=== PATIENT | female | born 1955 | race Two or more races ===

== ENCOUNTER 2020-01-29 11:10 | Inpatient (IN) | payer MEDICAID ==
[~2020-01-29] VITALS: Ht 162.6 cm; Wt 52.2 kg
[2020-01-29 11:10] VITALS: BP 119/62
--- NOTE | 2020-01-29 11:10 | NUR ---
ED Nurse Note: [facility]o AMS and fever 101F. Per EMS, pt is more altered than usual. Pt is alert and orientedx1, non verbal but is responsive to tactile stimuli. No acute distress. Pt placed on manager monitoring. ERMD at bedside.
[2020-01-29] MEDS ORDERED: Acetaminophen 650 MG SUPP RECTAL ONE ×2 (11:15→11:22)
[2020-01-29] MEDS ORDERED: Piperacillin/Tazobactam 3.375 GM in NS 110 ML IVPB ONE (11:15)
[2020-01-29] MEDS ORDERED: Vancomycin 1 GM in NS 275 ML IV ONE (11:15)
[2020-01-29] MEDS ORDERED: Sodium Chloride 2,200 ML IVLG ONE (11:15)
[2020-01-29] MEDS ORDERED: MEGESTROL ACETA40 MG PO (11:16)
[2020-01-29] MEDS ORDERED: AMLODIPINE BESYL5 MG ORAL (11:18)
[2020-01-29] MEDS ORDERED: ACETAMINOPHEN325 M1 ORAL (11:18)
[2020-01-29] MEDS ORDERED: LOVENOX10 M4 SUBQ (11:18)
--- NOTE | 2020-01-29 11:22 | Emergency Room Report ---
History of Present Illness General Chief Complaint: Altered Mental Status Source: Medical Record, EMS Present Illness HPI Patient brought by EMS. They were called for altered mentation. Patient was admitted to the long term facility on January 17. She has a history of UTI urinary tract infections in the past. Usually she is responsive and verbal [place]-speaking. Today she was less responsive and had a fever. No alleged cough. According to the long term facility there are several COVID-19 positive patients there. Paramedics were able to establish an IV but no fluids were administered. Oxygen saturation 96% in the field. The patient has history of encephalopathy and prior urinary tract infections. Allergies: Coded Allergies: No Known Allergies (Unverified , 01/29/20) COVID-19 Screening Contact w/high risk pt: Yes Recent Travel to affected area: No Experienced COVID-19 symptoms?: Yes COVID-19 symptoms experienced: Fever (T>100.4F or >38C) Patient History Limited by: medical condition Past Medical History: see triage record Social History Narrative Bethany Rubin Reviewed Nursing Documentation: PMH: Agreed; PSxH: Agreed Review of Systems All Other Systems: limited Physical Exam Vital Signs Date Time Temp Pulse Resp B/P (MAP) Pulse Ox O2 Delivery O2 Flow Rate FiO2 01/29/20 11:07 100.9 120 24 104/55 (71) 97 Room Air Sp02 EP Interpretation: reviewed, normal General Appearance: alert - Eyes are open and tries to follow but not answering , thin, Chronically Ill Head: normocephalic, atraumatic Eyes: bilateral eye normal inspection, bilateral eye PERRL, bilateral eye EOMI ENT: moist mucus membranes Neck: supple Respiratory: other - No respiratory distress Cardiovascular #1: no edema, tachycardia Cardiovascular #2: 2+ radial (R) Gastrointestinal: non tender, soft, non-distended, decreased bowel sounds Genitourinary: no CVA tenderness Musculoskeletal: other - Bunion deformity Neurologic: motor weakness - Generalized, Babinski - Bilateral Psychiatric: depressed affect Skin: no rash, other - Skin hot Medical Decision Making Diagnostic Impression: Primary Impression: Sepsis Qualified Codes: A41.9 - Sepsis, unspecified organism; R65.20 - Severe sepsis without septic shock; G93.40 - Encephalopathy, unspecified Additional Impressions: UTI (urinary tract infection) Qualified Codes: N39.0 - Urinary tract infection, site not specified Hypernatremia Dehydration ER Course Patient presents with altered mental status, fever, tachycardia with history of prior urinary tract infections from a long term facility where his COVID- 19 patients. Differential includes sepsis, UTI, pneumonia, COVID-19, acute myocardial infarction electrolyte imbalance amongst others. Patient evaluated with EKG, chest x-ray and labs. Patient treated with 30 mils per kilogram bolus and then aggressively hydrated. Antibiotics ordered to cover possible UTI with resistant organisms. Tylenol ordered. Patient placed on a manager cardiac cath. Also COVID-19 and influenza ordered. EKG sinus tachycardia rate [address]-T wave changes no acute injury. Chest x-ray clear. Sepsis reevaluation. Initial lactic acid normal. 30 mill per kilogram and aggressive hydration was already ordered along with triple antibiotics. Clinically patient is improved with improved mentation. No episodes of hypotension. No longer tachycardic. Sat at 100% and blood pressure 128/53. 1245 Labs remarkable for elevated sodium, elevated BUN. White count upper limit of normal without left shift. Urinalysis with nitrite positive and white blood cells. Patient evaluated by admitting physician. Dr. Kelly requested [facility]. Has patient from a facility where COVID-19 is endemic, COVID-19 tested in this patient. Patient with previous COVID-19contact. Laboratory Tests Test 01/29/20 11:19 01/29/20 11:43 White Blood Count 10.6 K/UL (4.8-10.8) Red Blood Count 5.35 M/UL (4.20-5.40) Hemoglobin 16.3 G/DL (12.0-16.0) H Hematocrit 48.9 % (37.0-47.0) H Mean Corpuscular Volume 91 FL (80-99) Mean Corpuscular Hemoglobin 30.5 PG (27.0-31.0) Mean Corpuscular Hemoglobin Concent 33.4 G/DL (32.0-36.0) Red Cell Distribution Width 12.1 % (11.6-14.8) Platelet Count 304 K/UL (150-450) Mean Platelet Volume 5.6 FL (6.5-10.1) L Neutrophils (%) (Auto) 69.5 % (45.0-75.0) Lymphocytes (%) (Auto) 20.6 % (20.0-45.0) Monocytes (%) (Auto) 8.5 % (1.0-10.0) Eosinophils (%) (Auto) 0.1 % (0.0-3.0) Basophils (%) (Auto) 1.2 % (0.0-2.0) Prothrombin Time 10.3 SEC (9.30-11.50) Prothrombin Time INR 1.0 (0.9-1.1) Activated Partial Thromboplast Time 25 SEC (23-33) Sodium Level 159 MMOL/L (136-145) H Potassium Level 4.0 MMOL/L (3.5-5.1) Chloride Level 120 MMOL/L (98-107) H Carbon Dioxide Level 30 MMOL/L (21-32) Anion Gap 9 mmol/L (5-15) Blood Urea Nitrogen 46 mg/dL (7-18) H Creatinine 0.8 MG/DL (0.55-1.30) Estimated Glomerular Filtration Rate > 60 mL/min (>60) Glucose Level 150 MG/DL (74-106) H Lactic Acid Level 1.50 mmol/L (0.4-2.0) Calcium Level 9.6 MG/DL (8.5-10.1) Phosphorus Level 4.5 MG/DL (2.5-4.9) Magnesium Level 2.9 MG/DL (1.8-2.4) H Total Bilirubin 0.5 MG/DL (0.2-1.0) Aspartate Amino Transferase (AST) 39 U/L (15-37) H Alanine Aminotransferase (ALT) 137 U/L (12-78) H Alkaline Phosphatase 86 U/L (46-116) Total Creatine Kinase 205 U/L (26-308) Troponin I 0.011 ng/mL (0.000-0.056) Pro-B-Type Natriuretic Peptide 288 pg/mL (0-125) H Total Protein 8.1 G/DL (6.4-8.2) Albumin 3.7 G/DL (3.4-5.0) Globulin 4.4 g/dL Albumin/Globulin Ratio 0.8 (1.0-2.7) L Lipase 223 U/L (73-393) Urine Color Yellow Urine Appearance Slightly cloudy Urine pH 5 (4.5-8.0) Urine Specific [place] 1.020 (1.005-1.035) Urine Protein 2+ (NEGATIVE) H Urine Glucose (UA) Negative (NEGATIVE) Urine Ketones Negative (NEGATIVE) Urine Blood 3+ (NEGATIVE) H Urine Nitrite Positive (NEGATIVE) H Urine Bilirubin 1+ (NEGATIVE) H Urine Ictotest Negative (NEGATIVE) Urine Urobilinogen 4 MG/DL (0.0-1.0) H Urine Leukocyte Esterase 3+ (NEGATIVE) H Urine RBC 2-4 /HPF (0 - 2) H Urine WBC 15-20 /HPF (0 - 2) H Urine Squamous Epithelial Cells Few /LPF (NONE/OCC) Urine Bacteria Moderate /HPF (NONE) H Microbiology Date/Time Source Procedure Growth Status 01/29/20 11:19 Nasal Nares - Final Complete 01/29/20 11:19 Nasal Nares - Final Complete EKG Diagnostic Results Rate: tachycardiac Rhythm: NSR ST Segments: no acute changes - Nonspecific ST-T wave changes Rhythm Strip Diag. Results EP Interpretation: yes Rhythm: NSR, no PVC's, no ectopy Chest X-Ray Diagnostic Results Chest X-Ray Diagnostic Results : Chest X-Ray Ordered: Yes # of Views/Limited/Complete: 1 View Indication: Other EP Interpretation: Yes Interpretation: no consolidation, no effusion, no pneumothorax Impression: No acute disease Electronically Signed by: Electronically signed by Howard Ham MD Last Vital Signs Date Time Temp Pulse Resp B/P (MAP) Pulse Ox O2 Delivery O2 Flow Rate FiO2 01/29/20 16:30 98.1 72 20 117/60 99 Room Air Status: improved Disposition: ADMITTED INPATIENT Condition: Serious Howard Ham MD Jan 29, 2020 11:22
[2020-01-29] MEDS ORDERED: Zosyn 3.375gm inj ONE (11:23)
[2020-01-29] MEDS ORDERED: Vancomycin 1gm vial IVPB ONE (11:23)
--- NOTE | 2020-01-29 11:30 | NUR ---
ED Nurse Note: IV line established. Blood and urine specimen collected and sent to lab.
--- NOTE | 2020-01-29 11:35 | NUR ---
ED Nurse Note: FC 16fr inserted per ERMD. Patent and draining well.
[2020-01-29 11:45] LABS: BASOPHILS % (AUTO) 1.2 % (0.0-2.0); EOSINOPHILS % (AUTO) 0.1 % (0.0-3.0); HEMATOCRIT 48.9 % (37.0-47.0); HEMOGLOBIN 16.3 G/DL (12.0-16.0); LYMPHOCYTES % (AUTO) 20.6 % (20.0-45.0); MEAN CORPUSCULAR VOLUME 91 FL (80-99); MONOCYTES % (AUTO) 8.5 % (1.0-10.0); NEUTROPHILS % (AUTO) 69.5 % (45.0-75.0); PLATELET COUNT 304 K/UL (150-450); RED BLOOD COUNT 5.35 M/UL (4.20-5.40); RED CELL DISTRIBUTION WIDTH 12.1 % (11.6-14.8); WHITE BLOOD COUNT 10.6 K/UL (4.8-10.8)
[2020-01-29 11:50] LABS: APPEARANCE,URINE SLIGHTLY CLOUDY; BILIRUBIN, URINE 1+ (NEGATIVE); GLUCOSE, URINE (UA) NEGATIVE (NEGATIVE); KETONES,URINE NEGATIVE (NEGATIVE); LEUKOCYTE ESTERASE ,URINE 3+ (NEGATIVE); NITRITE,URINE POSITIVE (NEGATIVE); PH,URINE 5 (4.5-8.0); PROTEIN,URINE 2+ (NEGATIVE); UROBILINOGEN,URINE 4 MG/DL (0.0-1.0)
--- NOTE | 2020-01-29 11:55 | NUR ---
ED Nurse Note: Xray done at bedside.
[2020-01-29 11:57] LABS: COLOR,URINE YELLOW
[2020-01-29 11:59] LABS: ANION GAP 9 mmol/L (5-15); BLOOD UREA NITROGEN 46 mg/dL (7-18); CALCIUM 9.6 MG/DL (8.5-10.1); CARBON DIOXIDE 30 MMOL/L (21-32); CHLORIDE 120 MMOL/L (98-107); CREATININE 0.8 MG/DL (0.55-1.30); SODIUM 159 MMOL/L (136-145)
[2020-01-29 12:08] LABS: ALANINE AMINOTRANSFERASE 137 U/L (12-78); ALBUMIN 3.7 G/DL (3.4-5.0); ALBUMIN/GLOBULIN RATIO 0.8 (1.0-2.7); ALKALINE PHOSPHATASE 86 U/L (46-116); ASPARTATE AMINO TRANSFERASE 39 U/L (15-37); BILIRUBIN,TOTAL 0.5 MG/DL (0.2-1.0); CREATINE KINASE 205 U/L (26-308); PHOSPHORUS 4.5 MG/DL (2.5-4.9)
--- NOTE | 2020-01-29 12:32 | NUR ---
ED Nurse Note: Pt is noted with pressure sore and redness on sacral area.
--- NOTE | 2020-01-29 12:34 | Diagnostic Imaging Report ---
EXAM: XR Chest, 1 View CLINICAL HISTORY: ALOC TECHNIQUE: Frontal view of the chest. COMPARISON: No relevant prior studies available. FINDINGS: Lungs: Unremarkable. The lungs appear clear. No focal consolidation. Pleural space: Unremarkable. The costophrenic angles are sharp. No visible pneumothorax. Heart: Unremarkable. No cardiomegaly. Mediastinum: Unremarkable. Bones/joints: Degenerative changes throughout the visualized spine and shoulder joints. Vasculature: Atherosclerotic calcifications within the aortic arch. Tubes, lines and devices: Telemetry leads overlie the thorax. IMPRESSION: No acute findings.
[2020-01-29 13:19] VITALS: BP 128/53
--- NOTE | 2020-01-29 13:43 | NUR ---
ED Nurse Note: Dr. Ramirez at bedside.
--- NOTE | 2020-01-29 14:43 | History and Physical ---
History of Present Illness General Reason for Hospitalization: Altered Mental Status Present Illness HPI 64-year-old female from [facility] w/PMH encephalopathy, UTI, anemia, atherosclerosis of aorta who presents with acute altered mentation, fevers and failure to thrive. Patient is poor historian, history obtained via chart review and nurse from nursing facility. Per nurse, patient at baseline is AAO x1, will usually respond to her name however today upon administering medications patient was not responding to name and was refusing food/ medications. No cough, SOB, CP, abdominal pain, dysuria was noted, but upon taking VS pt noted to have HR 144, temp 100.6. Facility has multiple residents who are positive for COVID which concerned the nurse, Pt sent patient to the ED for further treatment and evaluation. On route, patient was found to be septic, temperature 100.9, HR 120, RR 24, sepsis bolus was given in the ED, Vanc, Zosyn , gentamicin were given. PMH: Atherosclerosis of aorta, UTI, anemia, severe protein calorie malnutrition , unspecified altered mentation FHx: Reviewed and not pertinent SH: Patient resides at [facility], no tobacco/EtOH on record Sx: No surgical history allergies: NKDA Allergies: Coded Allergies: No Known Allergies (Unverified , 01/29/20) COVID-19 Screening Contact w/high risk pt: Yes Recent Travel to affected area: No Experienced COVID-19 symptoms?: Yes COVID-19 symptoms experienced: Fever (T>100.4F or >38C) Medication History Scheduled Amlodipine Besylate* (Amlodipine Besylate*), 5 MG ORAL DAILY, (Reported) Enoxaparin* (Lovenox*), 40 MG SUBQ DAILY, (Reported) Scheduled PRN Acetaminophen* (Acetaminophen 325MG Tablet*), 650 MG ORAL Q4H PRN for For Pain, (Reported) Miscellaneous Medications Megestrol Acetate (Megestrol Acetate), 40 MG PO, (Reported) Patient History Healthcare decision maker Resuscitation status Advanced Directive on File Review of Systems ROS Narrative Unable to obtain ROS due to clinical picture, patient noncommunicative at this time. Physical Exam Physical Exam Narrative General: NAD, sitting up in bed, awake, alert, noncommunicative at this time HEENT: NCAT, EOMi, dry MM CV: RRR, no murmurs, rubs, or gallops Pulm: CTAB, No wheezes, rhonchi, or rales, no accessory muscle usage GI: Soft, nontender, nondistended, bowel sounds present Neuro: Limited exam due to patient participation otherwise CN 2-12 grossly intact bilaterally, no focal signs. Ext: No lower extremity edema bilaterally Skin: no rashes lesions or ulcers Msk: Joints symmetrical in upper extremity and lower extremity bilaterally, no joint swelling. Last 24 Hour Vital Signs Date Time Temp Pulse Resp B/P (MAP) Pulse Ox O2 Delivery O2 Flow Rate FiO2 01/29/20 13:19 77 16 128/53 100 Room Air 01/29/20 11:56 101.0 01/29/20 11:10 101.5 118 20 119/62 98 Room Air 01/29/20 11:10 120 24 Room Air 01/29/20 11:07 100.9 120 24 104/55 (71) 97 Room Air Laboratory Tests Test 01/29/20 11:19 01/29/20 11:43 White Blood Count 10.6 K/UL (4.8-10.8) Red Blood Count 5.35 M/UL (4.20-5.40) Hemoglobin 16.3 G/DL (12.0-16.0) H Hematocrit 48.9 % (37.0-47.0) H Mean Corpuscular Volume 91 FL (80-99) Mean Corpuscular Hemoglobin 30.5 PG (27.0-31.0) Mean Corpuscular Hemoglobin Concent 33.4 G/DL (32.0-36.0) Red Cell Distribution Width 12.1 % (11.6-14.8) Platelet Count 304 K/UL (150-450) Mean Platelet Volume 5.6 FL (6.5-10.1) L Neutrophils (%) (Auto) 69.5 % (45.0-75.0) Lymphocytes (%) (Auto) 20.6 % (20.0-45.0) Monocytes (%) (Auto) 8.5 % (1.0-10.0) Eosinophils (%) (Auto) 0.1 % (0.0-3.0) Basophils (%) (Auto) 1.2 % (0.0-2.0) Prothrombin Time 10.3 SEC (9.30-11.50) Prothromb Time International Ratio 1.0 (0.9-1.1) Activated Partial Thromboplast Time 25 SEC (23-33) Sodium Level 159 MMOL/L (136-145) H Potassium Level 4.0 MMOL/L (3.5-5.1) Chloride Level 120 MMOL/L (98-107) H Carbon Dioxide Level 30 MMOL/L (21-32) Anion Gap 9 mmol/L (5-15) Blood Urea Nitrogen 46 mg/dL (7-18) H Creatinine 0.8 MG/DL (0.55-1.30) Estimat Glomerular Filtration Rate > 60 mL/min (>60) Glucose Level 150 MG/DL (74-106) H Lactic Acid Level 1.50 mmol/L (0.4-2.0) Calcium Level 9.6 MG/DL (8.5-10.1) Phosphorus Level 4.5 MG/DL (2.5-4.9) Magnesium Level 2.9 MG/DL (1.8-2.4) H Total Bilirubin 0.5 MG/DL (0.2-1.0) Aspartate Amino Transf (AST/SGOT) 39 U/L (15-37) H Alanine Aminotransferase (ALT/SGPT) 137 U/L (12-78) H Alkaline Phosphatase 86 U/L (46-116) Total Creatine Kinase 205 U/L (26-308) Troponin I 0.011 ng/mL (0.000-0.056) Pro-B-Type Natriuretic Peptide 288 pg/mL (0-125) H Total Protein 8.1 G/DL (6.4-8.2) Albumin 3.7 G/DL (3.4-5.0) Globulin 4.4 g/dL Albumin/Globulin Ratio 0.8 (1.0-2.7) L Lipase 223 U/L (73-393) Urine Color Yellow Urine Appearance Slightly cloudy Urine pH 5 (4.5-8.0) Urine Specific [place] 1.020 (1.005-1.035) Urine Protein 2+ (NEGATIVE) H Urine Glucose (UA) Negative (NEGATIVE) Urine Ketones Negative (NEGATIVE) Urine Blood 3+ (NEGATIVE) H Urine Nitrite Positive (NEGATIVE) H Urine Bilirubin 1+ (NEGATIVE) H Urine Ictotest Negative (NEGATIVE) Urine Urobilinogen 4 MG/DL (0.0-1.0) H Urine Leukocyte Esterase 3+ (NEGATIVE) H Urine RBC 2-4 /HPF (0 - 2) H Urine WBC 15-20 /HPF (0 - 2) H Urine Squamous Epithelial Cells Few /LPF (NONE/OCC) Urine Bacteria Moderate /HPF (NONE) H Microbiology Date/Time Source Procedure Growth Status 01/29/20 11:19 Nasal Nares - Final Complete 01/29/20 11:19 Nasal Nares - Final Complete Height (Feet): 5 Height (Inches): 5.00 Weight (Pounds): 170 Medications Current Medications Medications (Trade) Dose Ordered Sig/Tory Route PRN Reason Start Time Stop Time Status Last Admin Dose Admin Dextrose (Dextrose 50%) 25 ml Q30M PRN IV Hypoglycemia 01/29/20 14:00 04/28/20 13:59 Dextrose (Dextrose 50%) 50 ml Q30M PRN IV Hypoglycemia 01/29/20 14:00 04/28/20 13:59 Enoxaparin Sodium (Lovenox) 40 mg Q24H SUBQ 01/29/20 21:00 04/28/20 20:59 Hydralazine HCl (Apresoline) 10 mg Q4H PRN IV For High Blood Pressure 01/29/20 14:30 04/28/20 14:29 UNV Ondansetron HCl (Zofran) 4 mg Q6H PRN IVP Nausea & Vomiting 01/29/20 14:00 02/28/20 13:59 Piperacillin Sod/ Tazobactam Sod 3.375 gm/Sodium Chloride 110 ml @ 220 mls/hr DAILY IVPB 01/30/20 09:00 02/06/20 08:59 UNV Sodium Chloride 1,000 ml @ 300 mls/hr Q3H20M IV 01/29/20 11:15 02/28/20 11:14 01/29/20 11:48 Vancomycin HCl 1 gm/Sodium Chloride 275 ml @ 183.708 mls/hr DAILY IVPB 01/30/20 09:00 02/06/20 08:59 UNV Assessment/Plan Assessment/Plan: 64-year-old female from [facility] w/[facility] encephalopathy, UTI, anemia, atherosclerosis of aorta who presents with acute altered mentation, fevers and failure to thrive. Pt found to be septic, temperature 100.9, HR 120, RR 24, sepsis bolus was given in the ED, Vanc, Zosyn, gentamicin were given. Pt w/ COVID exposure, pt admitted for sepsis and COVID r/o. #Acute Toxic Metabolic Encephalopathy 2/2 #Sepsis #UTI #COVID exposure, pending r/o -admit to SDU, cardiac monitoring -droplet precautions -s/p sepsis bolus given in ER, cont. IVF -COVID pending -Flu A/B negative -UA positive for UTI -BCx, UCx pending -s/p vanc/zosyn/gentamicin in ED -d/w ID, Dr. Sotomayor, cont. Vanc/Zosyn. Reccs appreciated -Pulm Consulted for COVID r/o, reccs appreciated #Hypernatremia #Dehydration #elevated Hgb/Hct -likely 2/2 dehydration -Hgb/HCT ratio consistent w/dehydration, ctm -s/p sepsis bolus given in ED -cont. IVF -monitor BMP -Nephro, Dr. Ferguson, consulted, recs appreciated #Sinus Tachycardia -Likely multifactorial, 2/2 sepsis/dehydration -seen on EKG sinus tachycardia, HR 137, non-specific ST abnormalities -trop 0.011, cont. to trend -CXR negative for acute process -BNP 288 -improved w/NS bolus -cont. to monitor #Transaminitis -likely 2/2 sepsis -Abd US pending -Hepatitis panel ordered -cont. to monitor LFTs #Severe protein calorie malnutrition #Physical Deconditioning -Dietitian consulted -PT/OT once stable and COVID ruled out DVT PPx: lovenox Time spent on encounter: 70 mins, >50% on counseling, coordination of care. Additional 35 minutes was spent with chart review Time of note doesn't reflect time of encounter. Linsey Ramirez M.D. Jan 29, 2020 14:43
[2020-01-29 15:07] VITALS: BP 113/61
--- NOTE | 2020-01-29 15:24 | NUR ---
HAND-OFF: Report given to Imelda MCKEON. Endorsed plan of care.
--- NOTE | 2020-01-29 15:24 | NUR ---
ED Nurse Note: Report given to Anna Marie MCKEON.
--- NOTE | 2020-01-29 15:25 | NUR ---
ED Nurse Note: Report received from MIKE Lopez. Pt is in no acute distress at this time, safety measures in place. No new orders noted. Will transfer pt to unit.
[2020-01-29 16:15] VITALS: BP 125/64
--- NOTE | 2020-01-29 16:30 | NUR ---
ED Nurse Note: Pt stable for transport to tele unit at this time. Pt is awake, no acute distress noted and vital signs are stable. Pt transported to unit via tech and RN, connected to monitor car operator. IV lines patent and intact. Pt has face mask on and blanket placed over pt during transport for ISO precuations. All ISO precuations in place. Pt has no belongings. No complications noted.
--- NOTE | 2020-01-29 16:30 | NUR ---
NURSE NOTES: Received pt a new admission from ED,awake,alert non verbal on RA noted no resp distress no signs of pain or discomfort,,with Hogan cath draining [place] colored urine,IV sites heplock x2 RH 20 G,LH 22 G both intact,skin warm and dry,with sacral DTI,photos taken,SR up x2 HOB elevated bed lock in lowest position,will continue with plans of care.
--- NOTE | 2020-01-29 17:44 | Infectious Diseases Prog Note ---
Assessment/Plan Assessment/Plan Full consult dictated: A) 1) sepsis, fevers, rule out covid-19 virus infection 2) pmh noted 3) allergies - nkda 4) pmh noted P) 1) vancomycin and zosyn 2) f/u on cultures, labs and chest x-ray 3) will f/u 4) thank you Subjective Allergies: Coded Allergies: No Known Allergies (Unverified , 01/29/20) Objective Vital Signs Last 24 Hour Vital Signs Date Time Temp Pulse Resp B/P (MAP) Pulse Ox O2 Delivery O2 Flow Rate FiO2 01/29/20 16:30 98.1 72 20 117/60 99 Room Air 01/29/20 16:15 97.9 76 20 125/64 (84) 99 01/29/20 15:07 98.1 75 23 113/61 100 Room Air 01/29/20 13:19 77 16 128/53 100 Room Air 01/29/20 11:56 101.0 01/29/20 11:10 101.5 118 20 119/62 98 Room Air 01/29/20 11:10 120 24 Room Air 01/29/20 11:07 100.9 120 24 104/55 (71) 97 Room Air Height (Feet): 5 Height (Inches): 4.00 Weight (Pounds): 170 Microbiology Date/Time Source Procedure Growth Status 01/29/20 11:19 Nasal Nares - Final Complete 01/29/20 11:19 Nasal Nares - Final Complete 01/29/20 12:10 Rectum Received Laboratory Tests Test 01/29/20 11:19 01/29/20 11:43 01/29/20 15:15 White Blood Count 10.6 K/UL (4.8-10.8) Red Blood Count 5.35 M/UL (4.20-5.40) Hemoglobin 16.3 G/DL (12.0-16.0) H Hematocrit 48.9 % (37.0-47.0) H Mean Corpuscular Volume 91 FL (80-99) Mean Corpuscular Hemoglobin 30.5 PG (27.0-31.0) Mean Corpuscular Hemoglobin Concent 33.4 G/DL (32.0-36.0) Red Cell Distribution Width 12.1 % (11.6-14.8) Platelet Count 304 K/UL (150-450) Mean Platelet Volume 5.6 FL (6.5-10.1) L Neutrophils (%) (Auto) 69.5 % (45.0-75.0) Lymphocytes (%) (Auto) 20.6 % (20.0-45.0) Monocytes (%) (Auto) 8.5 % (1.0-10.0) Eosinophils (%) (Auto) 0.1 % (0.0-3.0) Basophils (%) (Auto) 1.2 % (0.0-2.0) Prothrombin Time 10.3 SEC (9.30-11.50) Prothromb Time International Ratio 1.0 (0.9-1.1) Activated Partial Thromboplast Time 25 SEC (23-33) Sodium Level 159 MMOL/L (136-145) H Potassium Level 4.0 MMOL/L (3.5-5.1) Chloride Level 120 MMOL/L (98-107) H Carbon Dioxide Level 30 MMOL/L (21-32) Anion Gap 9 mmol/L (5-15) Blood Urea Nitrogen 46 mg/dL (7-18) H Creatinine 0.8 MG/DL (0.55-1.30) Estimat Glomerular Filtration Rate > 60 mL/min (>60) Glucose Level 150 MG/DL (74-106) H Lactic Acid Level 1.50 mmol/L (0.4-2.0) Calcium Level 9.6 MG/DL (8.5-10.1) Phosphorus Level 4.5 MG/DL (2.5-4.9) Magnesium Level 2.9 MG/DL (1.8-2.4) H Total Bilirubin 0.5 MG/DL (0.2-1.0) Aspartate Amino Transf (AST/SGOT) 39 U/L (15-37) H Alanine Aminotransferase (ALT/SGPT) 137 U/L (12-78) H Alkaline Phosphatase 86 U/L (46-116) Total Creatine Kinase 205 U/L (26-308) Troponin I 0.011 ng/mL (0.000-0.056) 0.028 ng/mL (0.000-0.056) Pro-B-Type Natriuretic Peptide 288 pg/mL (0-125) H Total Protein 8.1 G/DL (6.4-8.2) Albumin 3.7 G/DL (3.4-5.0) Globulin 4.4 g/dL Albumin/Globulin Ratio 0.8 (1.0-2.7) L Lipase 223 U/L (73-393) Urine Color Yellow Urine Appearance Slightly cloudy Urine pH 5 (4.5-8.0) Urine Specific [place] 1.020 (1.005-1.035) Urine Protein 2+ (NEGATIVE) H Urine Glucose (UA) Negative (NEGATIVE) Urine Ketones Negative (NEGATIVE) Urine Blood 3+ (NEGATIVE) H Urine Nitrite Positive (NEGATIVE) H Urine Bilirubin 1+ (NEGATIVE) H Urine Ictotest Negative (NEGATIVE) Urine Urobilinogen 4 MG/DL (0.0-1.0) H Urine Leukocyte Esterase 3+ (NEGATIVE) H Urine RBC 2-4 /HPF (0 - 2) H Urine WBC 15-20 /HPF (0 - 2) H Urine Squamous Epithelial Cells Few /LPF (NONE/OCC) Urine Bacteria Moderate /HPF (NONE) H Hepatitis A IgM Antibody Pending Hepatitis B Surface Antigen Pending Hepatitis B Core IgM Antibody Pending Hepatitis C Antibody Pending Current Medications Medications (Trade) Dose Ordered Sig/Tory Route PRN Reason Start Time Stop Time Status Last Admin Dose Admin Acetaminophen (Tylenol) 650 mg Q4H PRN ORAL For Pain 01/29/20 15:15 02/28/20 15:14 Amlodipine Besylate (Norvasc) 5 mg DAILY ORAL 01/30/20 09:00 02/29/20 08:59 Dextrose (Dextrose 50%) 25 ml Q30M PRN IV Hypoglycemia 01/29/20 14:00 04/28/20 13:59 Dextrose (Dextrose 50%) 50 ml Q30M PRN IV Hypoglycemia 01/29/20 14:00 04/28/20 13:59 Enoxaparin Sodium (Lovenox) 40 mg Q24H SUBQ 01/29/20 21:00 04/28/20 20:59 Hydralazine HCl (Apresoline) 10 mg Q4H PRN IV For High Blood Pressure 01/29/20 14:30 04/28/20 14:29 Ondansetron HCl (Zofran) 4 mg Q6H PRN IVP Nausea & Vomiting 01/29/20 14:00 02/28/20 13:59 Piperacillin Sod/ Tazobactam Sod 3.375 gm/Sodium Chloride 110 ml @ 27.5 mls/hr Q8HR IVPB 01/29/20 22:00 02/05/20 21:59 Sodium Chloride 1,000 ml @ 75 mls/hr [id number] IV 01/30/20 11:15 02/28/20 11:14 Vancomycin HCl (Vanco rx to dose) 1 ea DAILY PRN MISC . 01/29/20 15:30 02/28/20 15:29 Vancomycin HCl 500 mg/Sodium Chloride 110 ml @ 110 mls/hr Q12HR@1100,2300 IVPB 01/29/20 23:00 02/03/20 22:59 Alfonso Sotomayor MD Jan 29, 2020 17:44
--- NOTE | 2020-01-29 19:10 | NUR ---
NURSE NOTES: Pt report received from CEDRICK COLLINS RN. pt is alert and oriented times 1, no acute neuro distress noted. pt is on room air, able to sat at 98%, no acute resp distress. pt is on compliance monitor showing NSR, no acute cardiac distress noted. pt bed is low, locked, armed, bed rails up times 3, call light within reach. will follow plan of care.
--- NOTE | 2020-01-29 19:30 | NUR ---
HAND-OFF: Report given to Galo Burns RN.Pt asleep in bed refused to eat dinner.. Pt asl
[2020-01-29 20:00] VITALS: BP 130/62
[2020-01-29] MEDS: Enoxaparin 40mg Inj SUBQ SCH (20:45)
[2020-01-29] MEDS: Piperacillin/Tazobactam 3.375 GM in NS 110 ML IVPB SCH (22:38)
[2020-01-29] MEDS: Vancomycin 500 MG in NS 110 ML IVPB SCH (22:38)
[2020-01-30] VITALS: BP 138/66
--- NOTE | 2020-01-30 00:45 | Consultation ---
DATE OF CONSULTATION: 01/29/2020 INFECTIOUS DISEASE CONSULT CONSULTING PHYSICIAN: Alfonso Sotomayor MD ATTENDING PHYSICIAN: Orlin Menendez MD REFERRING PHYSICIAN: Dr. Eunice Ramirez. REASON FOR CONSULTATION: UTI with pyelonephritis and sepsis, rule out COVID-19 virus infection, fevers. CHIEF COMPLAINT: The patient's chief complaint coming to the hospital sepsis. HISTORY OF PRESENT ILLNESS: This is a 64-year-old female who is currently at [facility] with fevers and sepsis. She has UTI, pyelonephritis with sepsis. She is also being ruled out COVID-19 virus infection. Infectious Disease consultation is requested. The patient is currently on vancomycin and Zosyn for UTI, pyelonephritis, and sepsis. She is currently in COVID-19 virus isolation. REVIEW OF SYSTEMS: CONSTITUTIONAL: The patient is mostly nonverbal. She has a Hogan. No central line. She came in with fevers of up to 101. She has no rash. No seizures. CARDIAC: No pressors. GASTROINTESTINAL: No nausea or diarrhea. GENITOURINARY: She has a Hogan. PULMONARY: No shortness of breath. PAST MEDICAL HISTORY: The patient has a past medical history of arthrosclerosis of the aorta, UTI, anemia, severe protein malnutrition, altered mental status. ALLERGIES: She has no known drug allergies. SOCIAL HISTORY: Negative for smoking, alcohol, or drug abuse. FAMILY HISTORY: Noncontributory. MEDICATIONS: Reviewed. According to the MAR, she is on following medications. She is on amlodipine, vancomycin, Zosyn, enoxaparin, acetaminophen, hydralazine, Zofran. Outside medications noted and reconciliated. PHYSICAL EXAMINATION: VITAL SIGNS: Temperature 98.1, pulse rate 72, respiratory 20, blood pressure 117/60, and saturation 99% on room air. T-max 101. GENERAL: Alert, responsive, nonverbal. HEAD AND NECK: Oral exam, no thrush. Eye exam, no icterus. Normocephalic. Neck is supple. HEART: Regular. No obvious gallop or murmur. ABDOMEN: Soft. Positive bowel sounds. Nontender. LUNGS: Clear bilaterally. No rhonchi or rales. SKIN: No rash. MUSCULOSKELETAL: No effusions. Legs are without cellulitis. PERIPHERAL VASCULAR: No cyanosis or gangrene. GENITOURINARY: She has a Hogan. LINE SITES: Without phlebitis. NEUROLOGIC: Generalized weakness. Nonverbal. LABORATORY AND DIAGNOSTIC DATA: UA had positive nitrite, 3+ leukocyte esterase, moderate bacteria, 15 to 20 white blood cells. Creatinine 0.8. LFTs noted. White count 10.6, hemoglobin 16.3. Creatinine 0.8. LFTs noted. UA; positive nitrite, 3+ leukocyte esterase, 15 to 20 white blood cells, moderate bacteria. Cultures are pending. Influenza screen was negative. COVID-19 virus testing pending. Chest x-ray showed no acute disease noted and reviewed. ASSESSMENT AND PLAN: 1. The patient has urinary tract infection/pyelonephritis with sepsis and fevers. Rule out COVID-19 virus infection which I have low suspicion for since the fever certainly could be secondary to UTI, pyelonephritis. Continue vancomycin and Zosyn empirically for MRSA gram-negative coverage. Continue vancomycin and Zosyn for UTI/pyelonephritis with sepsis and fevers. Check cultures, laboratories. Chest x-ray negative. Continue COVID-19 virus isolation and await testing with PCR. I would not start hydroxychloroquine at this time in this patient. There is no respiratory distress. No hypoxia. 2. The patient has a history of arthrosclerosis of aorta. 3. History of urinary tract infection. 4. Anemia. 5. Malnutrition. 6. Hogan. 7. Altered mental status. 8. The patient comes from [facility] that has COVID-19 positive patients. 9. No allergies. 10. Social history is negative. 11. Family history is noncontributory. 12. MAR is noted. 13. Case discussed with RN. 14. Case discussed with Dr. Ramirez. 15. Continue treatment per primary consultants. Alfonso Sotomayor M.D. DR: GORGE JOB#: [id number] CC:
[2020-01-30 04:00] VITALS: BP 132/61
[2020-01-30] MEDS: Piperacillin/Tazobactam 3.375 GM in NS 110 ML IVPB SCH ×3 (05:11→21:19)
--- NOTE | 2020-01-30 05:30 | NUR ---
NURSE NOTES: Labs/ blood drawn. sent to lab.
--- NOTE | 2020-01-30 07:09 | NUR ---
HAND-OFF: Report given to ADI MCKEON. Pt remains stable.
--- NOTE | 2020-01-30 07:15 | NUR ---
NURSE NOTES: Received report from Malick Burns RN. Patient asleep in bed, visible chest rise and fall with no respiratory distress. with Right wrist 22 IV line and Left hand 22 IV line intact and infusing well, asymptomatic for infection. Hogan catheter with urine bag in place draining well. Bed rails are up and stabilize.
[2020-01-30 08:34] LABS: ALANINE AMINOTRANSFERASE 108 U/L (12-78); ALBUMIN/GLOBULIN RATIO 0.8 (1.0-2.7); ALKALINE PHOSPHATASE 74 U/L (46-116); ANION GAP 13 mmol/L (5-15); ASPARTATE AMINO TRANSFERASE 32 U/L (15-37); BILIRUBIN,TOTAL 0.4 MG/DL (0.2-1.0); BLOOD UREA NITROGEN 34 mg/dL (7-18); CALCIUM 9.1 MG/DL (8.5-10.1); CARBON DIOXIDE 24 MMOL/L (21-32); CHLORIDE 126 MMOL/L (98-107); CREATININE 0.5 MG/DL (0.55-1.30); POTASSIUM 3.5 MMOL/L (3.5-5.1)
[2020-01-30 08:40] LABS: SODIUM 162 MMOL/L (136-145)
[2020-01-30] MEDS ORDERED: Vancomycin 1 GM in NS 275 ML IVPB SCH (09:00)
--- NOTE | 2020-01-30 09:04 | NUR ---
NURSE NOTES: Patient has critical sodium level of 162, Dr. Ferguson aware. Patient's fluids changed to D5W @ 75 cc/hr.
[2020-01-30 09:39] LABS: PHOSPHORUS 3.5 MG/DL (2.5-4.9)
--- NOTE | 2020-01-30 10:04 | General Progress Note ---
Assessment/Plan Assessment/Plan: 64-year-old female from [facility] w/PMH encephalopathy, UTI, anemia, atherosclerosis of aorta who presents with acute altered mentation, fevers and failure to thrive. Pt found to be septic, temperature 100.9, HR 120, RR 24, sepsis bolus was given in the ED, Vanc, Zosyn, gentamicin were given. Pt w/ COVID exposure, pt admitted for sepsis and COVID r/o. #Acute Toxic Metabolic Encephalopathy 2/2 #Sepsis #UTI #COVID exposure, pending r/o -Cont. inpatient medical care, cardiac monitoring -cont. droplet precautions -s/p sepsis bolus given in ER, cont. IVF -s/p vanc/zosyn/gentamicin in ED -COVID pending -Flu A/B negative -UA positive for UTI -BCx pending -UCx prelim w/GN baccili -d/w ID, Dr. Sotomayor, cont. Zosyn, d/c vanc -Pulm Consulted for COVID r/o, reccs appreciated #Hypernatremia #Dehydration #elevated Hgb/Hct -likely 2/2 dehydration -Hgb/HCT ratio consistent w/dehydration, ctm -s/p sepsis bolus given in ED -monitor BMP -d/w Nephro, Dr. Ferguson, changed NS to D5 #Sinus Tachycardia - resolved -Likely multifactorial, 2/2 sepsis/dehydration -seen on EKG sinus tachycardia, HR 137, non-specific ST abnormalities -trop 0.011, 0.028 -CXR negative for acute process -BNP 288 -improved w/NS bolus -cont. to monitor #Transaminitis -likely 2/2 sepsis -Abd US pending -Hepatitis panel negative -cont. to monitor LFTs #Severe protein calorie malnutrition #Physical Deconditioning -Dietitian consulted -PT/OT once stable and COVID ruled out DVT PPx: lovenox Time spent on encounter: 35 mins, >50% on coordination of care. D/w Nephro, ID and RN. Time of note doesn't reflect time of encounter. Subjective ROS Limited/Unobtainable: Yes - pt minimally verbal at this time Allergies: Coded Allergies: No Known Allergies (Unverified , 01/29/20) Subjective f/u for sepsis/acute metabolic encephalopathy, UTI. No acute events overnight. Patient noncommunicative at this time, unable to obtain ROS, pt appears comfortable, no issues per nurse. Objective Last 24 Hour Vital Signs Date Time Temp Pulse Resp B/P (MAP) Pulse Ox O2 Delivery O2 Flow Rate FiO2 01/30/20 08:43 83 136/72 01/30/20 08:32 67 01/30/20 04:00 65 01/30/20 04:00 98.3 65 20 132/61 (84) 98 01/30/20 04:00 Room Air 01/30/20 00:00 70 01/30/20 00:00 Room Air 01/30/20 00:00 97.8 77 20 138/66 (90) 99 01/29/20 20:00 Room Air 01/29/20 20:00 97.7 80 20 130/62 (84) 98 01/29/20 20:00 103 01/29/20 16:45 Room Air 01/29/20 16:30 98.1 72 20 117/60 99 Room Air 01/29/20 16:30 78 01/29/20 16:15 97.9 76 20 125/64 (84) 99 01/29/20 15:07 98.1 75 23 113/61 100 Room Air 01/29/20 13:19 77 16 128/53 100 Room Air 01/29/20 11:56 101.0 01/29/20 11:10 101.5 118 20 119/62 98 Room Air 01/29/20 11:10 120 24 Room Air 01/29/20 11:07 100.9 120 24 104/55 (71) 97 Room Air Intake and Output 01/29/20 01/30/20 19:00 07:00 Intake Total 3785 ml 247.5 ml Output Total 400 ml 500 ml Balance 3385 ml -252.5 ml Intake IV Total 3785 ml 247.5 ml Output Urine Total 400 ml 500 ml Laboratory Tests 01/29/20 11:19: White Blood Count 10.6, Red Blood Count 5.35, Hemoglobin 16.3H, Hematocrit 48.9H , Mean Corpuscular Volume 91, Mean Corpuscular Hemoglobin 30.5, Mean Corpuscular Hemoglobin Concent 33.4, Red Cell Distribution Width 12.1, Platelet Count 304, Mean Platelet Volume 5.6L, Neutrophils (%) (Auto) 69.5, Lymphocytes ( %) (Auto) 20.6, Monocytes (%) (Auto) 8.5, Eosinophils (%) (Auto) 0.1, Basophils (%) (Auto) 1.2, Prothrombin Time 10.3, Prothromb Time International Ratio 1.0, Activated Partial Thromboplast Time 25, Sodium Level 159H, Potassium Level 4.0, Chloride Level 120H, Carbon Dioxide Level 30, Anion Gap 9, Blood Urea Nitrogen 46H, Creatinine 0.8, Estimat Glomerular Filtration Rate > 60, Glucose Level 150H , Lactic Acid Level 1.50, Calcium Level 9.6, Phosphorus Level 4.5, Magnesium Level 2.9H, Total Bilirubin 0.5, Aspartate Amino Transf (AST/SGOT) 39H, Alanine Aminotransferase (ALT/SGPT) 137H, Alkaline Phosphatase 86, Total Creatine Kinase 205, Troponin I 0.011, Pro-B-Type Natriuretic Peptide 288H, Total Protein 8.1, Albumin 3.7, Globulin 4.4, Albumin/Globulin Ratio 0.8L, Lipase 223 01/29/20 11:43: Urine Color Yellow, Urine Appearance Slightly cloudy, Urine pH 5, Urine Specific [place] 1.020, Urine Protein 2+H, Urine Glucose (UA) Negative, Urine Ketones Negative, Urine Blood 3+H, Urine Nitrite PositiveH, Urine Bilirubin 1+H , Urine Ictotest Negative, Urine Urobilinogen 4H, Urine Leukocyte Esterase 3+H, Urine RBC 2-4H, Urine WBC 15-20H, Urine Squamous Epithelial Cells Few, Urine Bacteria ModerateH 01/29/20 15:15: Troponin I 0.028, Hepatitis A IgM Antibody Negative, Hepatitis B Surface Antigen Negative, Hepatitis B Core IgM Antibody Negative, Hepatitis C Antibody 0.1 01/30/20 05:00: Sodium Level 162*H, Potassium Level 3.5, Chloride Level 126H, Carbon Dioxide Level 24, Anion Gap 13, Blood Urea Nitrogen 34H, Creatinine 0.5L, Estimat Glomerular Filtration Rate > 60, Glucose Level 115H, Calcium Level 9.1, Phosphorus Level 3.5, Magnesium Level 2.5H, Total Bilirubin 0.4, Aspartate Amino Transf (AST/SGOT) 32, Alanine Aminotransferase (ALT/SGPT) 108H, Alkaline Phosphatase 74, Total Protein 6.6, Albumin 3.0L, Globulin 3.6, Albumin/Globulin Ratio 0.8L, Uric Acid 2.4L Height (Feet): 5 Height (Inches): 4.00 Weight (Pounds): 170 Objective General: NAD, awake, alert, sitting up in bed, A&O x 1, nonverbal at this time HEENT: NCAT, EOMi CV: RRR, no murmurs, rubs, or gallops Pulm: CTAB, No wheezes, rhonchi, or rales, no accessory muscle usage GI: Soft, nontender, nondistended, bowel sounds present Ext: No lower extremity edema bilaterally Linsey Ramirez M.D. Jan 30, 2020 10:04
--- NOTE | 2020-01-30 10:31 | NUR ---
RD ASSESSMENT & RECOMMENDATIONS SEE CARE ACTIVITY FOR COMPLETE ASSESSMENT DAILY ESTIMATED NEEDS: Needs based on Wound 60kg abw 25-30 kcals/kg 1223-6547 total kcals 1.25-1.5 g protein/kg 75-90 g total protein 25-30 mL/kg 8704-9022 total fluid mLs NUTRITION DIAGNOSIS: Increased pro needs r/t wound healing as evidenced by sacral unstageable wound. CURRENT DIET:Regular puree PO DIET RECOMMENDATIONS: Maintain Regular liberalized diet w/ poor intake ADDITIONAL RECOMMENDATIONS: 1) Rec T[employer]END [employer]ELOPER eval for appropriate texture for improved acceptance 2) Add Ensure 1 bottle w/ meals 3) Wound care: Add BEATRIZ BID + Vit C 250mg BID F/up w/ WC eval 4) Maintain calibrated bed scale wts 5) Monitor BG, need for hypoglycemics
[2020-01-30 10:56] LABS: BASOPHILS % (AUTO) 0.8 % (0.0-2.0); HEMATOCRIT 40.9 % (37.0-47.0); HEMOGLOBIN 13.6 G/DL (12.0-16.0); LYMPHOCYTES % (AUTO) 23.8 % (20.0-45.0); MEAN CORPUSCULAR VOLUME 93 FL (80-99); MONOCYTES % (AUTO) 6.8 % (1.0-10.0); NEUTROPHILS % (AUTO) 67.6 % (45.0-75.0); PLATELET COUNT 247 K/UL (150-450); RED BLOOD COUNT 4.42 M/UL (4.20-5.40); RED CELL DISTRIBUTION WIDTH 12.1 % (11.6-14.8); WHITE BLOOD COUNT 8.7 K/UL (4.8-10.8)
[2020-01-30] MEDS: Vancomycin 500 MG in NS 110 ML IVPB SCH ×2 (11:35→22:20)
[2020-01-30] MEDS ORDERED: Vancomycin 1 GM in D5W 275 ML IVPB SCH (13:15)
--- NOTE | 2020-01-30 15:15 | Consultation ---
DATE OF CONSULTATION: 01/30/2020 PULMONARY CONSULTATION CONSULTING PHYSICIAN: Tip Moreno M.D. HISTORY OF PRESENT ILLNESS: This is a 64-year-old female, who is a [facility]. She was brought to the hospital with fever and altered mental status. The patient is unable to provide a clear history. The patient denied any shortness of breath, although she is a very poor historian. The patient was noted to be febrile and tachycardic on arrival. There was concern about COVID-19 and she was admitted to an isolation room in our hospital. PAST MEDICAL HISTORY: Notable for hypertension, history of anemia, atherosclerosis, chronic encephalopathy, protein-calorie malnutrition. SOCIAL HISTORY: retirement resident. PAST SURGICAL HISTORY: None. ALLERGIES: None. HOME MEDICATIONS: Reviewed and reconciled in the chart, include amlodipine and Lovenox as well Tylenol. PHYSICAL EXAMINATION: VITAL SIGNS: Blood pressure is 130/60, heart rate 64, respirations 18, O2 saturation 98% on room air. GENERAL: Reveals elderly female. HEENT: Unremarkable. CHEST: Diminished breath sounds bilaterally with normal heart sounds. ABDOMEN: Soft. EXTREMITIES: There is no edema. LABORATORY DATA: Lab testing shows normal CBC and BMP except for sodium 162 and creatinine 0.5. Urine culture shows gram-negative bacilli. IMPRESSION: 1. UTI. 2. Severe hypernatremia. 3. Rule out COVID-19. 4. retirement resident. 5. Hypertension. DISCUSSION: Admit to the hospital. We will order oxygen p.r.n. and the patient needs broad-spectrum antibiotics and I note that she has been started on gentamicin and Zosyn as well as vancomycin. We will follow carefully. Tip Moreno M.D. DR: STEPHANY JOB#: [id number] CC:
[2020-01-30 16:00] VITALS: BP 132/57
--- NOTE | 2020-01-30 16:31 | Consultation ---
Consult Note Consult Note I am asked to evaluate the patient at the request of [employer] [facility] for management of the hypernatremia 64-year-old female from [facility] w/PMH encephalopathy, UTI, anemia, atherosclerosis of aorta who presents with acute altered mentation, fevers and failure to thrive. Pt found to be septic, temperature 100.9, HR 120, RR 24, sepsis bolus was given in the ED, Vanc, Zosyn, gentamicin were given. Pt w/ COVID exposure, pt admitted for sepsis and COVID r/o. Data of the record reviewed Consultants evaluation noted Assessment/Plan Renal impression: Patient has hypernatremia which is indicative of free water depletion, meanwhile elevated hemoglobin indicative of hemoconcentration due to dehydration Other significant conditions: Sepsis/UTI COVID exposure, pending rule out Toxic metabolic encephalopathy UTI History of hypertension Suggestions: D5W administration Monitor serum sodium and renal parameters Antibiotics Keep the blood pressure in check Per consultants Shawn Ferguson MD Jan 30, 2020 16:31
--- NOTE | 2020-01-30 19:10 | NUR ---
NURSE NOTES: Received patient and report from MIKE Mcrae. Patient is observed resting in bed and remains alert and oriented x0-1. No pain noted upon assessment. Pt is currently on RA with no s/sx of acute distress. Pt noted to be SR on tele monitor with a current HR of 80 noted, no s/sx of acute distress. Left wrist 22g and Right wrist 22g IV catheters noted which remain asymptomatic, patent and intact. IV site dressings changed as they were taped in place. Tape noted to be too tight causing edema of the hands. Hogan catheter noted which remains intact, patent and draining yellow urine to gravity. Will continue to monitor and assess edema. Diagnostics reviewed. Skin alterations noted. Fall and Aspiration precautions observed. Pt remains resting in bed; Bed remains in the lowest position with the safety wheels engaged, call light within reach, side rails up x3 and bed alarm activated. Will continue plan of care. Will continue to monitor.
--- NOTE | 2020-01-30 19:18 | NUR ---
HAND-OFF: Report given to Elva Valencia RN.
[2020-01-30 20:00] VITALS: BP 122/62
[2020-01-30] MEDS: Enoxaparin 40mg Inj SUBQ SCH (20:10)
--- NOTE | 2020-01-30 23:00 | NUR ---
NURSE NOTES: Pt provided with a bed bath, linen change and oral care. Pt tolerated care well. Pt remains resting in bed; Bed remains in the lowest position with the safety wheels engaged, call light within reach, side rails up x3 and bed alarm activated. Will continue plan of care. Will continue to monitor.
[2020-01-31] VITALS: BP 134/68
[2020-01-31 04:00] VITALS: BP 124/72
--- NOTE | 2020-01-31 04:00 | NUR ---
NURSE NOTES: AM lab draw performed on first attempt without incident. Pt tolerated care well. Pt provided with a bed bath, linen change and oral care. Pt remains resting in bed; Bed remains in the lowest position with the safety wheels engaged, call light within reach, side rails up x3 and bed alarm activated. Will continue plan of care. Will continue to monitor.
[2020-01-31] MEDS: Piperacillin/Tazobactam 3.375 GM in NS 110 ML IVPB SCH (05:19)
--- NOTE | 2020-01-31 05:39 | NUR ---
NURSE NOTES: Pt provided with a bed bath, linen change and oral care. Bilateral hands noted to be less edematous than at start of shit. Bilateral arms elevated. Pt tolerated care well. Pt remains resting in bed; Bed remains in the lowest position with the safety wheels engaged, call light within reach, side rails up x3 and bed alarm activated. Will continue plan of care. Will continue to monitor.
[2020-01-31 05:50] LABS: BASOPHILS % (AUTO) 0.9 % (0.0-2.0); EOSINOPHILS % (AUTO) 3.8 % (0.0-3.0); HEMATOCRIT 34.5 % (37.0-47.0); HEMOGLOBIN 11.7 G/DL (12.0-16.0); LYMPHOCYTES % (AUTO) 27.2 % (20.0-45.0); MEAN CORPUSCULAR VOLUME 92 FL (80-99); MONOCYTES % (AUTO) 7.3 % (1.0-10.0); NEUTROPHILS % (AUTO) 60.8 % (45.0-75.0); PLATELET COUNT 214 K/UL (150-450); RED BLOOD COUNT 3.74 M/UL (4.20-5.40); RED CELL DISTRIBUTION WIDTH 12.1 % (11.6-14.8); WHITE BLOOD COUNT 7.7 K/UL (4.8-10.8)
[2020-01-31 06:29] LABS: ALANINE AMINOTRANSFERASE 79 U/L (12-78); ALBUMIN 2.7 G/DL (3.4-5.0); ALBUMIN/GLOBULIN RATIO 0.8 (1.0-2.7); ALKALINE PHOSPHATASE 72 U/L (46-116); ANION GAP 12 mmol/L (5-15); ASPARTATE AMINO TRANSFERASE 26 U/L (15-37); BILIRUBIN,TOTAL 0.5 MG/DL (0.2-1.0); BLOOD UREA NITROGEN 24 mg/dL (7-18); CALCIUM 8.8 MG/DL (8.5-10.1); CARBON DIOXIDE 24 MMOL/L (21-32); CHLORIDE 122 MMOL/L (98-107); CHOLESTEROL 130 MG/DL (< 200); CREATININE 0.5 MG/DL (0.55-1.30); HDL CHOLESTEROL 18 MG/DL (40-60); SODIUM 158 MMOL/L (136-145); TRIGLYCERIDES 170 MG/DL (30-150)
--- NOTE | 2020-01-31 06:34 | NUR ---
NURSE NOTES: Called to notify Dr Ferguson regarding AM lab values. Will await call back. Will continue to monitor.
[2020-01-31 06:46] LABS: GAMMA GLUTAMYL TRANSPEPTIDASE 57 U/L (5-85); PHOSPHORUS 3.1 MG/DL (2.5-4.9)
--- NOTE | 2020-01-31 07:05 | NUR ---
HAND-OFF: Report given to MIKE Gay and Jim RN. Pt remains stable at this time. Plan of care endorsed.
--- NOTE | 2020-01-31 07:22 | NUR ---
NURSE NOTES: Received report from MIKE Flores. Patient is resting in bed, in stable condition. No s/sx of SOB, breathing is even and unlabored, on room air. Isolation for contact and droplet for r/o COVID-19. Pt is sleeping, observed no pain or discomfort at this time. Bed is in lowest position, brakes engaged. Call light is kept within easy reach. Will continue to monitor patient.
[2020-01-31 08:00] VITALS: BP 139/68
--- NOTE | 2020-01-31 10:12 | Nephrology Progress Note ---
Assessment/Plan Problem List: (1) Hypernatremia (2) Dehydration (3) UTI (urinary tract infection) (4) Acute metabolic encephalopathy (5) Sepsis Assessment Renal impression: Patient has hypernatremia which is indicative of free water depletion, meanwhile elevated hemoglobin indicative of hemoconcentration due to dehydration Other significant conditions: Sepsis/UTI COVID exposure, pending rule out Toxic metabolic encephalopathy UTI History of hypertension Plan Suggestions: D5W administration Folic acid p.o. Fish oil for high triglycerides Monitor serum sodium and renal parameters Antibiotics Keep the blood pressure in check Per consultants Subjective ROS Limited/Unobtainable: No Constitutional: Reports: malaise, weakness Objective Objective Last 24 Hour Vital Signs Date Time Temp Pulse Resp B/P (MAP) Pulse Ox O2 Delivery O2 Flow Rate FiO2 01/31/20 08:03 68 124/72 01/31/20 08:00 97.9 65 18 139/68 (91) 100 01/31/20 08:00 63 01/31/20 08:00 Room Air 01/31/20 04:00 98.4 68 18 124/72 (89) 96 01/31/20 04:00 Room Air 01/31/20 03:37 70 01/31/20 00:00 98.7 76 18 134/68 (90) 95 01/31/20 00:00 Room Air 01/30/20 23:30 68 01/30/20 20:00 Room Air 01/30/20 20:00 98.2 80 20 122/62 (82) 96 01/30/20 19:06 78 01/30/20 16:00 98.4 84 20 132/57 (82) 98 01/30/20 16:00 Room Air 01/30/20 16:00 81 01/30/20 12:20 77 01/30/20 12:00 Room Air Intake and Output 01/30/20 01/31/20 19:00 07:00 Intake Total 1225.125 ml 752.75 ml Output Total 300 ml 500 ml Balance 925.125 ml 252.75 ml Intake Oral 150 ml 64 ml IV Total 1075.125 ml 688.75 ml Output Urine Total 300 ml 500 ml Laboratory Tests 01/31/20 04:00: White Blood Count 7.7, Red Blood Count 3.74L, Hemoglobin 11.7L, Hematocrit 34.5L , Mean Corpuscular Volume 92, Mean Corpuscular Hemoglobin 31.3H, Mean Corpuscular Hemoglobin Concent 33.9, Red Cell Distribution Width 12.1, Platelet Count 214, Mean Platelet Volume 6.4L, Neutrophils (%) (Auto) 60.8, Lymphocytes ( %) (Auto) 27.2, Monocytes (%) (Auto) 7.3, Eosinophils (%) (Auto) 3.8H, Basophils (%) (Auto) 0.9, Sodium Level 158H, Potassium Level 3.0L, Chloride Level 122H, Carbon Dioxide Level 24, Anion Gap 12, Blood Urea Nitrogen 24H, Creatinine 0.5L, Estimat Glomerular Filtration Rate > 60, Glucose Level 125H, Hemoglobin A1c 5.3, Uric Acid 1.6L, Calcium Level 8.8, Phosphorus Level 3.1, Magnesium Level 2.5H, Total Bilirubin 0.5, Gamma Glutamyl Transpeptidase 57, Aspartate Amino Transf (AST/SGOT) 26, Alanine Aminotransferase (ALT/SGPT) 79H, Alkaline Phosphatase 72, C-Reactive Protein, Quantitative < 0.4, Pro-B-Type Natriuretic Peptide 86, Total Protein 6.0L, Albumin 2.7L, Globulin 3.3, Albumin/ Globulin Ratio 0.8L, Triglycerides Level 170H, Cholesterol Level 130, LDL Cholesterol 92, HDL Cholesterol 18L, Cholesterol/HDL Ratio 7.2H, Folate 6.9L, Thyroid Stimulating Hormone (TSH) 1.019 Height (Feet): 5 Height (Inches): 4.00 Weight (Pounds): 170 General Appearance: no apparent distress, lethargic - I Aria Cardiovascular: normal rate Respiratory/Chest: decreased breath sounds Abdomen: soft Shawn Ferguson MD Jan 31, 2020 10:12
--- NOTE | 2020-01-31 10:44 | Pulmonology Progress Note ---
Assessment/Plan Assessment/Plan IMPRESSION: 1. UTI. esbl e coli 2. Severe hypernatremia. improved 3. Rule out COVID-19. Negative x 1 4. snf resident. 5. Hypertension. DISCUSSION: Will continue oxygen p.r.n. Continue broad-spectrum antibiotics I will follow carefully. Subjective Interval Events: Saturating well on RA Constitutional: Reports: no symptoms HEENT: Repors: no symptoms Respiratory: Reports: no symptoms Cardiovascular: Reports: no symptoms Gastrointestinal/Abdominal: Reports: no symptoms Allergies: Coded Allergies: No Known Allergies (Unverified , 01/29/20) Objective Last 24 Hour Vital Signs Date Time Temp Pulse Resp B/P (MAP) Pulse Ox O2 Delivery O2 Flow Rate FiO2 01/31/20 08:03 68 124/72 01/31/20 08:00 97.9 65 18 139/68 (91) 100 01/31/20 08:00 63 01/31/20 08:00 Room Air 01/31/20 04:00 98.4 68 18 124/72 (89) 96 01/31/20 04:00 Room Air 01/31/20 03:37 70 01/31/20 00:00 98.7 76 18 134/68 (90) 95 01/31/20 00:00 Room Air 01/30/20 23:30 68 01/30/20 20:00 Room Air 01/30/20 20:00 98.2 80 20 122/62 (82) 96 01/30/20 19:06 78 01/30/20 16:00 98.4 84 20 132/57 (82) 98 01/30/20 16:00 Room Air 01/30/20 16:00 81 01/30/20 12:20 77 01/30/20 12:00 Room Air Intake and Output 01/30/20 01/31/20 19:00 07:00 Intake Total 1225.125 ml 752.75 ml Output Total 300 ml 500 ml Balance 925.125 ml 252.75 ml Intake Oral 150 ml 64 ml IV Total 1075.125 ml 688.75 ml Output Urine Total 300 ml 500 ml General Appearance: no acute distress HEENT: normocephalic Respiratory/Chest: chest wall non-tender, lungs clear Cardiovascular: normal peripheral pulses Abdomen: normal bowel sounds Microbiology Date/Time Source Procedure Growth Status 01/29/20 11:19 Blood Blood Culture - Preliminary Gram Positive Cocci Resulted 01/29/20 11:00 Blood Blood Culture - Preliminary Resulted 01/29/20 12:10 Nasal Nares MRSA Culture - Final NO METHICILLIN RESISTANT STAPH AUREUS... Complete 01/29/20 11:19 Nasopharynx Coronavirus COVID-19 PCR (KEZIA) - Final Complete 01/29/20 11:19 Nasal Nares - Final Complete 01/29/20 11:19 Nasal Nares - Final Complete 01/29/20 11:43 Urine,Clean Catch Urine Culture - Final Escherichia Coli - Esbl Complete 01/29/20 12:10 Rectum - Final NO CARBAPENEM-RESISTANT ENTEROBACTERI... Complete 01/29/20 12:10 Rectum VRE Culture - Final NO VANCOMYCIN RESISTANT ENTEROCOCCUS ... Complete Laboratory Tests 01/31/20 04:00: White Blood Count 7.7, Red Blood Count 3.74L, Hemoglobin 11.7L, Hematocrit 34.5L , Mean Corpuscular Volume 92, Mean Corpuscular Hemoglobin 31.3H, Mean Corpuscular Hemoglobin Concent 33.9, Red Cell Distribution Width 12.1, Platelet Count 214, Mean Platelet Volume 6.4L, Neutrophils (%) (Auto) 60.8, Lymphocytes ( %) (Auto) 27.2, Monocytes (%) (Auto) 7.3, Eosinophils (%) (Auto) 3.8H, Basophils (%) (Auto) 0.9, Sodium Level 158H, Potassium Level 3.0L, Chloride Level 122H, Carbon Dioxide Level 24, Anion Gap 12, Blood Urea Nitrogen 24H, Creatinine 0.5L, Estimat Glomerular Filtration Rate > 60, Glucose Level 125H, Hemoglobin A1c 5.3, Uric Acid 1.6L, Calcium Level 8.8, Phosphorus Level 3.1, Magnesium Level 2.5H, Total Bilirubin 0.5, Gamma Glutamyl Transpeptidase 57, Aspartate Amino Transf (AST/SGOT) 26, Alanine Aminotransferase (ALT/SGPT) 79H, Alkaline Phosphatase 72, C-Reactive Protein, Quantitative < 0.4, Pro-B-Type Natriuretic Peptide 86, Total Protein 6.0L, Albumin 2.7L, Globulin 3.3, Albumin/ Globulin Ratio 0.8L, Triglycerides Level 170H, Cholesterol Level 130, LDL Cholesterol 92, HDL Cholesterol 18L, Cholesterol/HDL Ratio 7.2H, Folate 6.9L, Thyroid Stimulating Hormone (TSH) 1.019 Current Medications Medications (Trade) Dose Ordered Sig/Tory Route PRN Reason Start Time Stop Time Status Last Admin Dose Admin Acetaminophen (Tylenol) 650 mg Q4H PRN ORAL For Pain 01/29/20 15:15 02/28/20 15:14 Amlodipine Besylate (Norvasc) 5 mg DAILY ORAL 01/30/20 09:00 02/29/20 08:59 01/31/20 08:03 Dextrose 1,000 ml @ 100 mls/hr Q10H IV 01/31/20 09:00 02/29/20 08:59 01/31/20 09:03 Dextrose (Dextrose 50%) 25 ml Q30M PRN IV Hypoglycemia 01/29/20 14:00 04/28/20 13:59 Dextrose (Dextrose 50%) 50 ml Q30M PRN IV Hypoglycemia 01/29/20 14:00 04/28/20 13:59 Enoxaparin Sodium (Lovenox) 40 mg Q24H SUBQ 01/29/20 21:00 04/28/20 20:59 01/30/20 20:10 Fish Oil (Fish Oil) 1,000 mg BID ORAL 01/31/20 18:00 03/01/20 17:59 Folic Acid (Folate) 2 mg DAILY ORAL 01/31/20 09:00 03/01/20 08:59 01/31/20 09:02 Hydralazine HCl (Apresoline) 10 mg Q4H PRN IV For High Blood Pressure 01/29/20 14:30 04/28/20 14:29 Ondansetron HCl (Zofran) 4 mg Q6H PRN IVP Nausea & Vomiting 01/29/20 14:00 02/28/20 13:59 Piperacillin Sod/ Tazobactam Sod 3.375 gm/Sodium Chloride 110 ml @ 27.5 mls/hr Q8HR IVPB 01/29/20 22:00 02/05/20 21:59 01/31/20 05:19 Potassium Chloride 100 ml @ 100 mls/hr Q1HR IVPB 01/31/20 10:00 01/31/20 13:59 01/31/20 10:16 Potassium Chloride (K-Dur) 40 meq DAILY ORAL 02/01/20 09:00 05/01/20 08:59 Vancomycin HCl (Vanco rx to dose) 1 ea DAILY PRN MISC Per rx protocol 01/30/20 13:15 02/29/20 13:14 Vancomycin HCl 500 mg/Sodium Chloride 110 ml @ 110 mls/hr Q12HR@1100,2300 IVPB 01/30/20 23:00 02/04/20 22:59 01/30/20 22:20 Tip Moreno MD Jan 31, 2020 10:44
--- NOTE | 2020-01-31 10:51 | NUR ---
NURSE NOTES: Dr. Ramirez at nurse station, made aware that COVID-19 swab is negative and that Dr. Sotomayor was made aware and ordered to discontinue COVID-[address]. [address] Ramirez aware of ESBL urine and that pt is on IV antibiotics, Dr. Ramirez ordered to continue contact isolation and transfer to [facility]. Dr. Ramirez order repeat of blood culture x 2. Orders entered, noted, and carried out. Will continue to monitor patient.
--- NOTE | 2020-01-31 11:37 | General Progress Note ---
Assessment/Plan Assessment/Plan: 64-year-old female from [facility] w/PMH encephalopathy, UTI, anemia, atherosclerosis of aorta who presents with acute altered mentation, fevers and failure to thrive. Pt found to be septic, temperature 100.9, HR 120, RR 24, sepsis bolus was given in the ED, Vanc, Zosyn, gentamicin were given. Pt w/ COVID exposure, pt admitted for sepsis and COVID r/o. #Acute Toxic Metabolic Encephalopathy 2/2 #Sepsis #UTI -Cont. inpatient medical care, cardiac monitoring -COVID NEGATIVE, d/c droplet precautions, ok to transfer to [facility] -s/p sepsis bolus and vanc/zosyn/gentamicin given in ER -Flu A/B negative -BCx 1/2 +GPC, likely contaminate, will repeat BCx today -UCx GN baccili -d/w ID, Dr. oStomayor, cont. Zosyn, vanc, will wait for final sensitivities -Pulm following, reccs appreciated #Hypernatremia #Dehydration #elevated Hgb/Hct - likely 2/2 hemoconcentration -likely 2/2 dehydration -monitor BMP -d/w Nephnathaly, Dr. Ferguson: D5W #Sinus Tachycardia - resolved -Likely multifactorial, 2/2 sepsis/dehydration -seen on EKG sinus tachycardia, HR 137, non-specific ST abnormalities -trop 0.011, 0.028 -CXR negative for acute process -BNP 288 -improved w/NS bolus -cont. to monitor #Transaminitis -likely 2/2 sepsis -Abd US pending -Hepatitis panel negative -cont. to monitor LFTs #Severe protein calorie malnutrition #Physical Deconditioning -Dietitian consulted -PT/OT once stable and COVID ruled out DVT PPx: lovenox Time spent on encounter: 35 mins, >50% on coordination of care. D/w Nephro, ID, Pulm and RN. Time of note doesn't reflect time of encounter. Subjective ROS Limited/Unobtainable: Yes - aphasic Allergies: Coded Allergies: No Known Allergies (Unverified , 01/29/20) Subjective f/u for sepsis/acute metabolic encephalopathy, UTI. Pt appears comfortable, awake, non-communicative. COVID negative. Objective Last 24 Hour Vital Signs Date Time Temp Pulse Resp B/P (MAP) Pulse Ox O2 Delivery O2 Flow Rate FiO2 01/31/20 08:03 68 124/72 01/31/20 08:00 97.9 65 18 139/68 (91) 100 01/31/20 08:00 63 01/31/20 08:00 Room Air 01/31/20 04:00 98.4 68 18 124/72 (89) 96 01/31/20 04:00 Room Air 01/31/20 03:37 70 01/31/20 00:00 98.7 76 18 134/68 (90) 95 01/31/20 00:00 Room Air 01/30/20 23:30 68 01/30/20 20:00 Room Air 01/30/20 20:00 98.2 80 20 122/62 (82) 96 01/30/20 19:06 78 01/30/20 16:00 98.4 84 20 132/57 (82) 98 01/30/20 16:00 Room Air 01/30/20 16:00 81 01/30/20 12:20 77 01/30/20 12:00 Room Air Intake and Output 01/30/20 01/31/20 19:00 07:00 Intake Total 1225.125 ml 752.75 ml Output Total 300 ml 500 ml Balance 925.125 ml 252.75 ml Intake Oral 150 ml 64 ml IV Total 1075.125 ml 688.75 ml Output Urine Total 300 ml 500 ml Laboratory Tests 01/31/20 04:00: White Blood Count 7.7, Red Blood Count 3.74L, Hemoglobin 11.7L, Hematocrit 34.5L , Mean Corpuscular Volume 92, Mean Corpuscular Hemoglobin 31.3H, Mean Corpuscular Hemoglobin Concent 33.9, Red Cell Distribution Width 12.1, Platelet Count 214, Mean Platelet Volume 6.4L, Neutrophils (%) (Auto) 60.8, Lymphocytes ( %) (Auto) 27.2, Monocytes (%) (Auto) 7.3, Eosinophils (%) (Auto) 3.8H, Basophils (%) (Auto) 0.9, Sodium Level 158H, Potassium Level 3.0L, Chloride Level 122H, Carbon Dioxide Level 24, Anion Gap 12, Blood Urea Nitrogen 24H, Creatinine 0.5L, Estimat Glomerular Filtration Rate > 60, Glucose Level 125H, Hemoglobin A1c 5.3, Uric Acid 1.6L, Calcium Level 8.8, Phosphorus Level 3.1, Magnesium Level 2.5H, Total Bilirubin 0.5, Gamma Glutamyl Transpeptidase 57, Aspartate Amino Transf (AST/SGOT) 26, Alanine Aminotransferase (ALT/SGPT) 79H, Alkaline Phosphatase 72, C-Reactive Protein, Quantitative < 0.4, Pro-B-Type Natriuretic Peptide 86, Total Protein 6.0L, Albumin 2.7L, Globulin 3.3, Albumin/ Globulin Ratio 0.8L, Triglycerides Level 170H, Cholesterol Level 130, LDL Cholesterol 92, HDL Cholesterol 18L, Cholesterol/HDL Ratio 7.2H, Folate 6.9L, Thyroid Stimulating Hormone (TSH) 1.019 01/31/20 10:30: Vancomycin Level Trough 6.3 Height (Feet): 5 Height (Inches): 4.00 Weight (Pounds): 170 Objective General: NAD, awake, alert, sitting up in bed, A&O x 1 at b/l, aphasic HEENT: NCAT, EOMi, MMM CV: RRR, no murmurs, rubs, or gallops Pulm: CTAB, No wheezes, rhonchi, or rales, no accessory muscle usage GI: Soft, nontender, nondistended, bowel sounds present Ext: No lower extremity edema bilaterally Linsey Ramirez M.D. Jan 31, 2020 11:37
[2020-01-31] MEDS: Vancomycin 500 MG in NS 110 ML IVPB SCH (11:46)
[2020-01-31 12:00] VITALS: BP 130/70
--- NOTE | 2020-01-31 12:56 | NUR ---
TRANSFER TO FLOOR: Patient transferred to [facility], per Dr. Ramirez. Report given to MIKE Nixon. Patient has no belongings or medications. Family informed of transfer.
--- NOTE | 2020-01-31 13:09 | NUR ---
NURSE NOTES: Received patient from Tele from [facility]. No SOB or acute distress. IV line on right wrist g22 and left wrist g22 intact and patent. Hogan catheter intact, draining yellow colored urine. Skin checked. No belongings. On NPO for ABD US today. HOB elevated. Bed locked in lowest position. Call light within reach. Will continue plan of care.
[2020-01-31] MEDS ORDERED: NS 275ml ONE (13:11)
[2020-01-31] MEDS ORDERED: Tubing IV Secondary IV ONE (13:11)
--- NOTE | 2020-01-31 13:33 | NUR ---
CASE MANAGEMENT: DCP PATIENT IS ACCEPTED BACK TO [facility] ROOM [facility] NO FAMILY LISTED ON THE [facility] [place] [phone] TRANSPORTATION ARRANGED FOR 16:00 CALL CENTER OPERATOR PER PER MOLINA
[2020-01-31] MEDS ORDERED: Piperacillin/Tazobactam 3.375 GM in NS 110 ML IVPB SCH (14:00)
--- NOTE | 2020-01-31 15:11 | Diagnostic Imaging Report ---
Indication: Abnormal liver function tests, abnormal renal function tests Technique: Bangura-scale and duplex images of the upper abdomen were obtained Comparison: none Findings: Gallbladder is unremarkable, without stones, wall thickening, nor pericholecystic fluid. Sonographic Vallecillo's sign is negative. Common bile duct measures 7 mm in diameter. No intrahepatic biliary ductal dilatation. Liver demonstrates normal echogenicity, no focal abnormality. Portal vein and hepatic veins are patent. Pancreas is unremarkable. Spleen is unremarkable. Left kidney measures 11.6 cm in length. Right kidney measures 9.9 cm length. Both kidneys demonstrate normal echogenicity. There is no hydronephrosis. No focal abnormality . Abdominal aorta is partially obscured by bowel gas, visualized portions are non-aneurysmal . Impression: Mildly ectatic common bile duct, may be age-related but downstream obstruction not completely excludable. Correlate with liver function tests, consider MRCP for further evaluation if clinically indicated Negative for gallstones or other significant abnormality. Note nonvisualization of the distal abdominal aorta
--- NOTE | 2020-01-31 16:37 | NUR ---
CASE MANAGEMENT: REVIEW SI: DEHYDRATION . HYPERNATREMIA T 96.6 HR 68 RR 18 BP 130/70 SAT 100% ROOM AIR NA 158 K+ 3.0 BUN 24 CR 0.5 IS: D5W @100ML/HR ZOSYN IV Q8HR VANCO IV Q12HR K-DUR PO QDAY MED/SURG STATUS DCP: PATIENT IS FROM [facility]
--- NOTE | 2020-01-31 19:48 | NUR ---
HAND-OFF: Report given to sonia.
--- NOTE | 2020-01-31 19:49 | NUR ---
NURSE NOTES: Received patient in bed, alert, oriented x1, bedbound, on room air, both IV sites are clean dry and intact. No acute distress noted, Hogan catheter is intact, secure and in place, draining clean yellow colored urine. Call light is within reach, bed is lowered, locked, alarm is on, will continue to monitor for comfort and safety.
[2020-01-31 20:00] VITALS: BP 118/58
--- NOTE | 2020-01-31 20:19 | Infectious Diseases Prog Note ---
Assessment/Plan Assessment/Plan ASSESSMENT AND PLAN: 1. esbl e.coli uti/pyelonephritis, ? gram + bacteremia, sepsis, fevers - meropenem and vancomycin - day # 3 abx treatment - check final blood culture results - monitor labs - clinically improved - covid-19 testing negative - d/w Dr. Ramirez 2. The patient has a history of arthrosclerosis of aorta. 3. History of urinary tract infection. 4. Anemia. 5. Malnutrition. 6. Pak. 7. Altered mental status. 8. The patient comes from [place] that has COVID-19 positive patients. 9. No allergies. 10. Social history is negative. 11. Family history is noncontributory. 12. MAR is noted. 13. Case discussed with RN. 14. Case discussed with Dr. Ramirez. 15. Continue treatment per primary consultants. Subjective Constitutional: Denies: fever HEENT: Denies: congestion Respiratory: Denies: shortness of breath Cardiovascular: Denies: chest pain Gastrointestinal/Abdominal: Denies: nausea, vomiting, diarrhea Genitourinary: Reports: other - + pak Neurologic: Denies: headache Psychiatric: Denies: depression Skin: Denies: rash Hematologic: Denies: bleeding Musculoskeletal: Denies: pain Allergies: Coded Allergies: No Known Allergies (Unverified , 01/29/20) Objective Vital Signs Last 24 Hour Vital Signs Date Time Temp Pulse Resp B/P (MAP) Pulse Ox O2 Delivery O2 Flow Rate FiO2 01/31/20 12:00 96.6 68 18 130/70 (90) 100 01/31/20 12:00 Room Air 01/31/20 08:03 68 124/72 01/31/20 08:00 97.9 65 18 139/68 (91) 100 01/31/20 08:00 63 01/31/20 08:00 Room Air 01/31/20 04:00 98.4 68 18 124/72 (89) 96 01/31/20 04:00 Room Air 01/31/20 03:37 70 01/31/20 00:00 98.7 76 18 134/68 (90) 95 01/31/20 00:00 Room Air 01/30/20 23:30 68 Height (Feet): 5 Height (Inches): 4.00 Weight (Pounds): 170 General Appearance: no acute distress HEENT: normocephalic, atraumatic, anicteric Respiratory/Chest: lungs clear, normal breath sounds, no respiratory distress, no accessory muscle use Cardiovascular: normal rate, regular rhythm, no gallop/murmur, no JVD Abdomen: normal bowel sounds, soft, non tender, no organomegaly, non distended Genitourinary: other - + pak Extremities: no cyanosis Skin: no rash Neurologic/Psychiatric: pan devulcanizer II-XII grossly normal, alert, responsive Lymphatic: no neck adenopathy Musculoskeletal: no effusion Objective Chest x-ray - TECHNIQUE: Frontal view of the chest. COMPARISON: No relevant prior studies available. FINDINGS: Lungs: Unremarkable. The lungs appear clear. No focal consolidation. Pleural space: Unremarkable. The costophrenic angles are sharp. No visible pneumothorax. Heart: Unremarkable. No cardiomegaly. Mediastinum: Unremarkable. Bones/joints: Degenerative changes throughout the visualized spine and shoulder joints. Vasculature: Atherosclerotic calcifications within the aortic arch. Tubes, lines and devices: Telemetry leads overlie the thorax. IMPRESSION: No acute findings. Microbiology Date/Time Source Procedure Growth Status 01/29/20 11:19 Blood Blood Culture - Preliminary Gram Positive Cocci Resulted 01/29/20 11:00 Blood Blood Culture - Preliminary Resulted 01/29/20 12:10 Nasal Nares MRSA Culture - Final NO METHICILLIN RESISTANT STAPH AUREUS... Complete 01/29/20 11:19 Nasopharynx Coronavirus COVID-19 PCR (KEZIA) - Final Complete 01/29/20 11:19 Nasal Nares - Final Complete 01/29/20 11:19 Nasal Nares - Final Complete 01/29/20 11:43 Urine,Clean Catch Urine Culture - Final Escherichia Coli - Esbl Complete 01/29/20 12:10 Rectum - Final NO CARBAPENEM-RESISTANT ENTEROBACTERI... Complete 01/29/20 12:10 Rectum VRE Culture - Final NO VANCOMYCIN RESISTANT ENTEROCOCCUS ... Complete Laboratory Tests Test 01/31/20 04:00 01/31/20 10:30 White Blood Count 7.7 K/UL (4.8-10.8) Red Blood Count 3.74 M/UL (4.20-5.40) L Hemoglobin 11.7 G/DL (12.0-16.0) L Hematocrit 34.5 % (37.0-47.0) L Mean Corpuscular Volume 92 FL (80-99) Mean Corpuscular Hemoglobin 31.3 PG (27.0-31.0) H Mean Corpuscular Hemoglobin Concent 33.9 G/DL (32.0-36.0) Red Cell Distribution Width 12.1 % (11.6-14.8) Platelet Count 214 K/UL (150-450) Mean Platelet Volume 6.4 FL (6.5-10.1) L Neutrophils (%) (Auto) 60.8 % (45.0-75.0) Lymphocytes (%) (Auto) 27.2 % (20.0-45.0) Monocytes (%) (Auto) 7.3 % (1.0-10.0) Eosinophils (%) (Auto) 3.8 % (0.0-3.0) H Basophils (%) (Auto) 0.9 % (0.0-2.0) Sodium Level 158 MMOL/L (136-145) H Potassium Level 3.0 MMOL/L (3.5-5.1) L Chloride Level 122 MMOL/L (98-107) H Carbon Dioxide Level 24 MMOL/L (21-32) Anion Gap 12 mmol/L (5-15) Blood Urea Nitrogen 24 mg/dL (7-18) H Creatinine 0.5 MG/DL (0.55-1.30) L Estimat Glomerular Filtration Rate > 60 mL/min (>60) Glucose Level 125 MG/DL (74-106) H Hemoglobin A1c 5.3 % (4.3-6.0) Uric Acid 1.6 MG/DL (2.6-7.2) L Calcium Level 8.8 MG/DL (8.5-10.1) Phosphorus Level 3.1 MG/DL (2.5-4.9) Magnesium Level 2.5 MG/DL (1.8-2.4) H Total Bilirubin 0.5 MG/DL (0.2-1.0) Gamma Glutamyl Transpeptidase 57 U/L (5-85) Aspartate Amino Transf (AST/SGOT) 26 U/L (15-37) Alanine Aminotransferase (ALT/SGPT) 79 U/L (12-78) H Alkaline Phosphatase 72 U/L (46-116) C-Reactive Protein, Quantitative < 0.4 mg/dL (0.00-0.90) Pro-B-Type Natriuretic Peptide 86 pg/mL (0-125) Total Protein 6.0 G/DL (6.4-8.2) L Albumin 2.7 G/DL (3.4-5.0) L Globulin 3.3 g/dL Albumin/Globulin Ratio 0.8 (1.0-2.7) L Triglycerides Level 170 MG/DL (30-150) H Cholesterol Level 130 MG/DL (< 200) LDL Cholesterol 92 mg/dL (<100) HDL Cholesterol 18 MG/DL (40-60) L Cholesterol/HDL Ratio 7.2 (3.3-4.4) H Folate 6.9 NG/ML (8.6-58.9) L Thyroid Stimulating Hormone (TSH) 1.019 uiU/mL (0.358-3.740) Vancomycin Level Trough 6.3 ug/mL (5.0-12.0) Current Medications Medications (Trade) Dose Ordered Sig/Tory Route PRN Reason Start Time Stop Time Status Last Admin Dose Admin Acetaminophen (Tylenol) 650 mg Q4H PRN ORAL For Pain 01/31/20 14:00 02/28/20 13:59 Amlodipine Besylate (Norvasc) 5 mg DAILY ORAL 02/01/20 09:00 02/29/20 08:59 Dextrose 1,000 ml @ 100 mls/hr Q10H IV 01/31/20 13:00 02/29/20 08:59 01/31/20 14:09 Dextrose (Dextrose 50%) 25 ml Q30M PRN IV Hypoglycemia 01/31/20 13:00 04/28/20 13:59 Dextrose (Dextrose 50%) 50 ml Q30M PRN IV Hypoglycemia 01/31/20 13:00 04/28/20 13:59 Enoxaparin Sodium (Lovenox) 40 mg Q24H SUBQ 01/31/20 21:00 04/28/20 20:59 Fish Oil (Fish Oil) 1,000 mg BID ORAL 01/31/20 18:00 03/01/20 17:59 01/31/20 19:52 Folic Acid (Folate) 2 mg DAILY ORAL 02/01/20 09:00 03/01/20 08:59 Ondansetron HCl (Zofran) 4 mg Q6H PRN IVP Nausea & Vomiting 01/31/20 13:00 02/28/20 12:59 Piperacillin Sod/ Tazobactam Sod 3.375 gm/Sodium Chloride 110 ml @ 27.5 mls/hr Q8HR IVPB 01/31/20 14:00 02/05/20 21:59 01/31/20 14:51 Potassium Chloride (K-Dur) 40 meq DAILY ORAL 02/01/20 09:00 05/01/20 08:59 Vancomycin HCl (Vanco rx to dose) 1 ea DAILY PRN MISC Per rx protocol 02/01/20 09:00 02/29/20 13:14 Vancomycin HCl 750 mg/Dextrose 275 ml @ 183.333 mls/hr Q12H IVPB 01/31/20 21:00 02/05/20 20:59 Alfonso Sotomayor MD Jan 31, 2020 20:19
[2020-01-31] MEDS: Vancomycin 750mg/D5W 275ml IVPB SCH ×2 (20:48)
[2020-01-31] MEDS: Enoxaparin 40mg Inj SUBQ SCH (20:49)
[2020-01-31] MEDS ORDERED: Vancomycin 500 MG in NS 110 ML IVPB SCH (23:00)
[2020-02-01] VITALS: BP 128/70
[2020-02-01 04:00] VITALS: BP 126/64
--- NOTE | 2020-02-01 07:30 | NUR ---
NURSE NOTES: Received patient in bed,patient asleep,but easily arousable no sign of distress .IV site was not intact, pulled out by patient prior to my shift,patient gown and blanket were wet, Hogan catheter intact draining yellow colored urine. heritage consultant and aspiration precaution Bed locked in lowest position. Call light within reach. Will continue plan of care ainsley harry
--- NOTE | 2020-02-01 07:39 | NUR ---
HAND-OFF: Report given to Saloni MCKE[facility].
[2020-02-01 08:30] VITALS: BP 151/63
[2020-02-01] MEDS: Vancomycin 750mg/D5W 275ml IVPB SCH ×4 (08:50→21:16)
[2020-02-01 08:54] LABS: BASOPHILS % (AUTO) 0.8 % (0.0-2.0); EOSINOPHILS % (AUTO) 7.2 % (0.0-3.0); HEMATOCRIT 32.3 % (37.0-47.0); HEMOGLOBIN 11.2 G/DL (12.0-16.0); LYMPHOCYTES % (AUTO) 24.6 % (20.0-45.0); MEAN CORPUSCULAR VOLUME 90 FL (80-99); MONOCYTES % (AUTO) 5.5 % (1.0-10.0); NEUTROPHILS % (AUTO) 61.9 % (45.0-75.0); PLATELET COUNT 170 K/UL (150-450); RED BLOOD COUNT 3.59 M/UL (4.20-5.40); RED CELL DISTRIBUTION WIDTH 11.5 % (11.6-14.8); WHITE BLOOD COUNT 6.5 K/UL (4.8-10.8)
[2020-02-01 09:23] LABS: PHOSPHORUS 3.1 MG/DL (2.5-4.9)
[2020-02-01 09:41] LABS: ALANINE AMINOTRANSFERASE 79 U/L (12-78); ALBUMIN 2.7 G/DL (3.4-5.0); ALKALINE PHOSPHATASE 82 U/L (46-116); ANION GAP 7 mmol/L (5-15); ASPARTATE AMINO TRANSFERASE 29 U/L (15-37); BILIRUBIN,TOTAL 0.5 MG/DL (0.2-1.0); BLOOD UREA NITROGEN 14 mg/dL (7-18); CALCIUM 8.6 MG/DL (8.5-10.1); CARBON DIOXIDE 28 MMOL/L (21-32); CHLORIDE 112 MMOL/L (98-107); CREATININE 0.4 MG/DL (0.55-1.30); POTASSIUM 3.7 MMOL/L (3.5-5.1); SODIUM 147 MMOL/L (136-145)
--- NOTE | 2020-02-01 10:38 | NUR ---
CASE MANAGEMENT:REVIEW SI;SEPSIS. UTI. ENCEPHALOPATHY. HYPERNATREMIA. 98.4 58 21 118/58 93% ON RA NA 147 CL 112 CR 0.4 ALT 79 IS;K-DUR PO QD MEROPENEM IV Q8 HRS VANCOMYCIN IV Q12 HRS LOVENOX SUBQ Q24 HRS MED SURG STATUS TRANSFERRED TO MED SURG ON 01/31/2020 DCP;FROM [facility]
--- NOTE | 2020-02-01 10:41 | Pulmonology Progress Note ---
Assessment/Plan Assessment/Plan IMPRESSION: 1. UTI. esbl e coli 2. Severe hypernatremia. improved 3. Rule out COVID-19. Negative x 1 4. [facility] resident. 5. Hypertension. DISCUSSION: Will continue oxygen p.r.n. Continue broad-spectrum antibiotics I will follow carefully. Subjective Interval Events: None new Constitutional: Reports: no symptoms HEENT: Repors: no symptoms Respiratory: Reports: no symptoms Cardiovascular: Reports: no symptoms Gastrointestinal/Abdominal: Reports: no symptoms Allergies: Coded Allergies: No Known Allergies (Unverified , 01/29/20) Objective Last 24 Hour Vital Signs Date Time Temp Pulse Resp B/P (MAP) Pulse Ox O2 Delivery O2 Flow Rate FiO2 02/01/20 08:49 58 151/63 02/01/20 08:30 98.0 58 18 151/63 (92) 93 02/01/20 04:00 98.0 66 18 126/64 (84) 98 02/01/20 00:00 98.4 62 18 128/70 (89) 98 01/31/20 20:07 Room Air 01/31/20 20:00 97.3 64 21 118/58 (78) 98 01/31/20 12:00 96.6 68 18 130/70 (90) 100 01/31/20 12:00 Room Air Intake and Output 01/31/20 02/01/20 19:00 07:00 Intake Total 500 ml 580 ml Output Total 800 ml Balance 500 ml -220 ml Intake Oral 480 ml IV Total 500 ml 100 ml Output Urine Total 800 ml General Appearance: no acute distress HEENT: normocephalic Respiratory/Chest: chest wall non-tender Cardiovascular: normal peripheral pulses Abdomen: normal bowel sounds Microbiology Date/Time Source Procedure Growth Status 01/29/20 11:19 Blood Blood Culture - Final Staphylococcus Epidermidis Complete 01/29/20 11:00 Blood Blood Culture - Final Staphylococcus Epidermidis Complete 01/29/20 12:10 Nasal Nares MRSA Culture - Final NO METHICILLIN RESISTANT STAPH AUREUS... Complete 01/29/20 11:19 Nasopharynx Coronavirus COVID-19 PCR ([facility]) - Final Complete 01/29/20 11:19 Nasal Nares - Final Complete 01/29/20 11:19 Nasal Nares - Final Complete 01/29/20 11:43 Urine,Clean Catch Urine Culture - Final Escherichia Coli - Esbl Complete 01/29/20 12:10 Rectum - Final NO CARBAPENEM-RESISTANT ENTEROBACTERI... Complete 01/29/20 12:10 Rectum VRE Culture - Final NO VANCOMYCIN RESISTANT ENTEROCOCCUS ... Complete Laboratory Tests 02/01/20 08:20: White Blood Count 6.5, Red Blood Count 3.59L, Hemoglobin 11.2L, Hematocrit 32.3L , Mean Corpuscular Volume 90, Mean Corpuscular Hemoglobin 31.1H, Mean Corpuscular Hemoglobin Concent 34.7, Red Cell Distribution Width 11.5L, Platelet Count 170, Mean Platelet Volume 7.3, Neutrophils (%) (Auto) 61.9, Lymphocytes (%) (Auto) 24.6, Monocytes (%) (Auto) 5.5, Eosinophils (%) (Auto) 7.2H, Basophils (%) (Auto) 0.8, Sodium Level 147H, Potassium Level 3.7, Chloride Level 112H, Carbon Dioxide Level 28, Anion Gap 7, Blood Urea Nitrogen 14, Creatinine 0.4L, Estimat Glomerular Filtration Rate > 60, Glucose Level 104 , Calcium Level 8.6, Phosphorus Level 3.1, Magnesium Level 2.0, Total Bilirubin 0.5, Aspartate Amino Transf (AST/SGOT) 29, Alanine Aminotransferase (ALT/SGPT) 79H, Alkaline Phosphatase 82, C-Reactive Protein, Quantitative < 0.4, Pro-B- Type Natriuretic Peptide 463H, Total Protein 5.5L, Albumin 2.7L, Globulin 2.8, Albumin/Globulin Ratio 1.0 Current Medications Medications (Trade) Dose Ordered Sig/Tory Route PRN Reason Start Time Stop Time Status Last Admin Dose Admin Acetaminophen (Tylenol) 650 mg Q4H PRN ORAL For Pain 01/31/20 14:00 02/28/20 13:59 Amlodipine Besylate (Norvasc) 5 mg DAILY ORAL 02/01/20 09:00 02/29/20 08:59 02/01/20 08:49 Dextrose 1,000 ml @ 100 mls/hr Q10H IV 01/31/20 13:00 02/29/20 08:59 02/01/20 04:18 Dextrose (Dextrose 50%) 25 ml Q30M PRN IV Hypoglycemia 01/31/20 13:00 04/28/20 13:59 Dextrose (Dextrose 50%) 50 ml Q30M PRN IV Hypoglycemia 01/31/20 13:00 04/28/20 13:59 Enoxaparin Sodium (Lovenox) 40 mg Q24H SUBQ 01/31/20 21:00 04/28/20 20:59 01/31/20 20:49 Fish Oil (Fish Oil) 1,000 mg BID ORAL 01/31/20 18:00 03/01/20 17:59 02/01/20 08:50 Folic Acid (Folate) 2 mg DAILY ORAL 02/01/20 09:00 03/01/20 08:59 02/01/20 08:50 Meropenem 500 mg/ Sodium Chloride 50 ml @ 100 mls/hr EVERY 8 HOURS IVPB 01/31/20 22:00 02/05/20 21:59 02/01/20 05:27 Ondansetron HCl (Zofran) 4 mg Q6H PRN IVP Nausea & Vomiting 01/31/20 13:00 02/28/20 12:59 Potassium Chloride (K-Dur) 40 meq DAILY ORAL 02/01/20 09:00 05/01/20 08:59 02/01/20 08:49 Vancomycin HCl (Vanco rx to dose) 1 ea DAILY PRN MISC Per rx protocol 02/01/20 09:00 02/29/20 13:14 Vancomycin HCl 750 mg/Dextrose 275 ml @ 183.333 mls/hr Q12H IVPB 01/31/20 21:00 02/05/20 20:59 02/01/20 08:50 Tip Moreno MD Feb 01, 2020 10:41
--- NOTE | 2020-02-01 11:11 | General Progress Note ---
Assessment/Plan Assessment/Plan: 64-year-old female from [facility] w/H encephalopathy, UTI, anemia, atherosclerosis of aorta who presents with acute altered mentation, fevers and failure to thrive. Pt found to be septic, temperature 100.9, HR 120, RR 24, sepsis bolus was given in the ED, Vanc, Zosyn, gentamicin were given. #Acute Toxic Metabolic Encephalopathy 2/2 #Severe Sepsis, POA #UTI -Cont. inpatient medical care, cardiac monitoring -COVID NEGATIVE -Flu A/B negative -BCx growing Staph epi -UCx E. coli -Cont with vanco and meropenem per ID recs -Pulm following #Hypernatremia, improved #Dehydration #elevated Hgb/Hct - likely 2/2 hemoconcentration -likely 2/2 dehydration -cont D5W -monitor BMP -Renal following #Sinus Tachycardia - resolved -Likely multifactorial, 2/2 sepsis/dehydration -seen on EKG sinus tachycardia, HR 137, non-specific ST abnormalities -trop 0.011, 0.028 -CXR negative for acute process -BNP 288 -improved with volume expansion -cont. to monitor #Transaminitis -likely 2/2 sepsis -Abd US equivocal -Hepatitis panel negative -cont. to monitor LFTs, will consider GI eval #Severe protein calorie malnutrition #Physical Deconditioning -Dietitian consulted -PT/OT once stable and COVID ruled out DVT PPx: lovenox Time spent on encounter: 35 mins, >50% on coordination of care. I spent an additional 35 minutes on review of medical records including prior records, consult notes, progress notes, procedures, imaging, labs, hemodynamics , and other clinical documentation. Subjective Allergies: Coded Allergies: No Known Allergies (Unverified , 01/29/20) Objective Last 24 Hour Vital Signs Date Time Temp Pulse Resp B/P (MAP) Pulse Ox O2 Delivery O2 Flow Rate FiO2 02/01/20 08:49 58 151/63 02/01/20 08:30 98.0 58 18 151/63 (92) 93 02/01/20 04:00 98.0 66 18 126/64 (84) 98 02/01/20 00:00 98.4 62 18 128/70 (89) 98 01/31/20 20:07 Room Air 01/31/20 20:00 97.3 64 21 118/58 (78) 98 01/31/20 12:00 96.6 68 18 130/70 (90) 100 01/31/20 12:00 Room Air Intake and Output 01/31/20 02/01/20 19:00 07:00 Intake Total 500 ml 580 ml Output Total 800 ml Balance 500 ml -220 ml Intake Oral 480 ml IV Total 500 ml 100 ml Output Urine Total 800 ml Laboratory Tests 02/01/20 08:20: White Blood Count 6.5, Red Blood Count 3.59L, Hemoglobin 11.2L, Hematocrit 32.3L , Mean Corpuscular Volume 90, Mean Corpuscular Hemoglobin 31.1H, Mean Corpuscular Hemoglobin Concent 34.7, Red Cell Distribution Width 11.5L, Platelet Count 170, Mean Platelet Volume 7.3, Neutrophils (%) (Auto) 61.9, Lymphocytes (%) (Auto) 24.6, Monocytes (%) (Auto) 5.5, Eosinophils (%) (Auto) 7.2H, Basophils (%) (Auto) 0.8, Sodium Level 147H, Potassium Level 3.7, Chloride Level 112H, Carbon Dioxide Level 28, Anion Gap 7, Blood Urea Nitrogen 14, Creatinine 0.4L, Estimat Glomerular Filtration Rate > 60, Glucose Level 104 , Calcium Level 8.6, Phosphorus Level 3.1, Magnesium Level 2.0, Total Bilirubin 0.5, Aspartate Amino Transf (AST/SGOT) 29, Alanine Aminotransferase (ALT/SGPT) 79H, Alkaline Phosphatase 82, C-Reactive Protein, Quantitative < 0.4, Pro-B- Type Natriuretic Peptide 463H, Total Protein 5.5L, Albumin 2.7L, Globulin 2.8, Albumin/Globulin Ratio 1.0 Height (Feet): 5 Height (Inches): 4.00 Weight (Pounds): 170 Isai Carvajal MD Feb 01, 2020 11:11
[2020-02-01 12:00] VITALS: BP 156/64
--- NOTE | 2020-02-01 12:50 | NUR ---
nurse notes No IV access at this time, tried multiply times by 3RN's, including ate Dixie, warm compress applied to all extremity still not successfull, notified MD awaiting to call richar harry rn
[2020-02-01] MEDS ORDERED: Heparin1,000 units/500ml Premix(Conc:2 units/ml) IV PRN (12:51)
--- NOTE | 2020-02-01 12:57 | Nephrology Progress Note ---
Assessment/Plan Problem List: (1) Hypernatremia (2) Dehydration (3) UTI (urinary tract infection) (4) Acute metabolic encephalopathy (5) Sepsis Assessment Renal impression: Patient has hypernatremia which is indicative of free water depletion, meanwhile elevated hemoglobin indicative of hemoconcentration due to dehydration Other significant conditions: Sepsis/UTI COVID exposure, pending rule out Toxic metabolic encephalopathy UTI History of hypertension Plan Suggestions: D5W administration on a lower rate Folic acid p.o. Fish oil for high triglycerides Monitor serum sodium and renal parameters Antibiotics Keep the blood pressure in check Per consultants Subjective ROS Limited/Unobtainable: No Constitutional: Reports: malaise, weakness Objective Objective Last 24 Hour Vital Signs Date Time Temp Pulse Resp B/P (MAP) Pulse Ox O2 Delivery O2 Flow Rate FiO2 02/01/20 12:00 98.1 58 18 156/64 (94) 97 02/01/20 08:49 58 151/63 02/01/20 08:30 98.0 58 18 151/63 (92) 93 02/01/20 04:00 98.0 66 18 126/64 (84) 98 02/01/20 00:00 98.4 62 18 128/70 (89) 98 01/31/20 20:07 Room Air 01/31/20 20:00 97.3 64 21 118/58 (78) 98 Intake and Output 01/31/20 02/01/20 19:00 07:00 Intake Total 500 ml 580 ml Output Total 800 ml Balance 500 ml -220 ml Intake Oral 480 ml IV Total 500 ml 100 ml Output Urine Total 800 ml Current Medications Medications (Trade) Dose Ordered Sig/Tory Route PRN Reason Start Time Stop Time Status Last Admin Dose Admin Acetaminophen (Tylenol) 650 mg Q4H PRN ORAL For Pain 01/31/20 14:00 02/28/20 13:59 Amlodipine Besylate (Norvasc) 5 mg DAILY ORAL 02/01/20 09:00 02/29/20 08:59 02/01/20 08:49 Chlorhexidine Gluconate (Gale-Hex 2%) 1 applic DAILY@2000 TOPIC 02/01/20 20:00 05/01/20 19:59 Dextrose 1,000 ml @ 100 mls/hr Q10H IV 01/31/20 13:00 02/29/20 08:59 02/01/20 04:18 Dextrose (Dextrose 50%) 25 ml Q30M PRN IV Hypoglycemia 01/31/20 13:00 04/28/20 13:59 Dextrose (Dextrose 50%) 50 ml Q30M PRN IV Hypoglycemia 01/31/20 13:00 04/28/20 13:59 Enoxaparin Sodium (Lovenox) 40 mg Q24H SUBQ 01/31/20 21:00 04/28/20 20:59 01/31/20 20:49 Fish Oil (Fish Oil) 1,000 mg BID ORAL 01/31/20 18:00 03/01/20 17:59 02/01/20 08:50 Folic Acid (Folate) 2 mg DAILY ORAL 02/01/20 09:00 03/01/20 08:59 02/01/20 08:50 Heparin Sodium/ Sodium Chloride (Heparin 1000 units/500ml Premix) 1,000 unit ONCE PRN IV picc 02/01/20 12:51 02/01/20 23:59 Lidocaine HCl (Xylocaine 1% 30ml) 30 ml ONCE PRN INJ picc 02/01/20 13:00 02/01/20 23:59 Meropenem 500 mg/ Sodium Chloride 50 ml @ 100 mls/hr EVERY 8 HOURS IVPB 01/31/20 22:00 02/05/20 21:59 02/01/20 05:27 Ondansetron HCl (Zofran) 4 mg Q6H PRN IVP Nausea & Vomiting 01/31/20 13:00 02/28/20 12:59 Potassium Chloride (K-Dur) 40 meq DAILY ORAL 02/01/20 09:00 05/01/20 08:59 02/01/20 08:49 Vancomycin HCl (Vanco rx to dose) 1 ea DAILY PRN MISC Per rx protocol 02/01/20 09:00 02/29/20 13:14 Vancomycin HCl 750 mg/Dextrose 275 ml @ 183.333 mls/hr Q12H IVPB 01/31/20 21:00 02/05/20 20:59 02/01/20 08:50 Laboratory Tests 02/01/20 08:20: White Blood Count 6.5, Red Blood Count 3.59L, Hemoglobin 11.2L, Hematocrit 32.3L , Mean Corpuscular Volume 90, Mean Corpuscular Hemoglobin 31.1H, Mean Corpuscular Hemoglobin Concent 34.7, Red Cell Distribution Width 11.5L, Platelet Count 170, Mean Platelet Volume 7.3, Neutrophils (%) (Auto) 61.9, Lymphocytes (%) (Auto) 24.6, Monocytes (%) (Auto) 5.5, Eosinophils (%) (Auto) 7.2H, Basophils (%) (Auto) 0.8, Sodium Level 147H, Potassium Level 3.7, Chloride Level 112H, Carbon Dioxide Level 28, Anion Gap 7, Blood Urea Nitrogen 14, Creatinine 0.4L, Estimat Glomerular Filtration Rate > 60, Glucose Level 104 , Calcium Level 8.6, Phosphorus Level 3.1, Magnesium Level 2.0, Total Bilirubin 0.5, Aspartate Amino Transf (AST/SGOT) 29, Alanine Aminotransferase (ALT/SGPT) 79H, Alkaline Phosphatase 82, C-Reactive Protein, Quantitative < 0.4, Pro-B- Type Natriuretic Peptide 463H, Total Protein 5.5L, Albumin 2.7L, Globulin 2.8, Albumin/Globulin Ratio 1.0 Height (Feet): 5 Height (Inches): 4.00 Weight (Pounds): 170 General Appearance: no apparent distress Cardiovascular: bradycardia Respiratory/Chest: decreased breath sounds Abdomen: distended Shawn Ferguson MD Feb 01, 2020 12:57
[2020-02-01] MEDS ORDERED: Lidocaine 1% Plain 30 ml INJ PRN (13:00)
--- NOTE | 2020-02-01 13:21 | NUR ---
NURSE NOTES IV site swollen, called Dr Regalado made aware regarding no IV access at this time, with order PICC line insertion but patient self responsible no family to sign consent Dr Regalado made aware ainsley harry,
--- NOTE | 2020-02-01 14:20 | NUR ---
nurse notes endorsed to Howard kline charge nurse to call /follow up Dr Regalado regarding PICC line consent ainsley harry
--- NOTE | 2020-02-01 15:23 | NUR ---
nurse notes Dr Regalado called stated dc PICC line, try to insert IV tim harry rn
[2020-02-01 16:00] VITALS: BP 129/59
--- NOTE | 2020-02-01 19:42 | NUR ---
nurse notes endorsed to Mana MCKEON accordingly ainsley harry
[2020-02-01 20:00] VITALS: BP 147/67
[2020-02-01] MEDS ORDERED: Dyna-Hex 2% Top Sol 2oz TOPIC SCH (20:00)
--- NOTE | 2020-02-01 20:08 | NUR ---
NURSE NOTES: RECEIVE PATIENT FROM MIKE VASQUEZ. PATIENT IS AWAKE, AAOX1, ON ROOM AIR, NO ACUTE DISTRESS NOTED. VELAZQUEZ IS INTACT AND DRAINING WELL, VELAZQUEZ ANCHOR IN PLACE. WOUND DRESSINGS DRY AND INTACT. NO IV ACCESS. BED IS LOCKED AND LOW, BED ALARMS ACTIVE, SIDE RAILS UP X2 AND CALL LIGHT IS WITHIN REACH. WILL CONTINUE TO MONITOR.
[2020-02-01] MEDS: Enoxaparin 40mg Inj SUBQ SCH (21:56)
[2020-02-02] VITALS: BP 123/64
[2020-02-02 04:00] VITALS: BP 120/65
[2020-02-02 06:37] LABS: ALANINE AMINOTRANSFERASE 80 U/L (12-78); ALBUMIN 2.6 G/DL (3.4-5.0); ALBUMIN/GLOBULIN RATIO 0.7 (1.0-2.7); ALKALINE PHOSPHATASE 92 U/L (46-116); ANION GAP 7 mmol/L (5-15); ASPARTATE AMINO TRANSFERASE 37 U/L (15-37); BILIRUBIN,TOTAL 0.6 MG/DL (0.2-1.0); BLOOD UREA NITROGEN 10 mg/dL (7-18); CALCIUM 8.8 MG/DL (8.5-10.1); CARBON DIOXIDE 23 MMOL/L (21-32); CHLORIDE 108 MMOL/L (98-107); CREATININE 0.4 MG/DL (0.55-1.30); POTASSIUM 4.9 MMOL/L (3.5-5.1); SODIUM 138 MMOL/L (136-145)
--- NOTE | 2020-02-02 07:15 | NUR ---
NURSE NOTES: Handoff received from TB RN. Patient is asleep, no acute distress noted. breathing is unlabored and even on room air. Hogan is patent and draining, right forearm IV is patent and running IVF as ordered. Bed is in low and locked position, side rails up x3. fall precautions will be maintained.
--- NOTE | 2020-02-02 07:54 | NUR ---
HAND-OFF: Report given to MIKE Stallings and MIKE Kothari.
[2020-02-02 08:00] VITALS: BP 129/69
[2020-02-02 08:37] LABS: PHOSPHORUS 3.5 MG/DL (2.5-4.9)
[2020-02-02] MEDS: Vancomycin 750mg/D5W 275ml IVPB SCH ×2 (09:22)
--- NOTE | 2020-02-02 10:15 | General Progress Note ---
Assessment/Plan Assessment/Plan: 64-year-old female from [facility] w/PMH encephalopathy, UTI, anemia, atherosclerosis of aorta who presents with acute altered mentation, fevers and failure to thrive. Pt found to be septic, temperature 100.9, HR 120, RR 24, sepsis bolus was given in the ED, Vanc, Zosyn, gentamicin were given. #Acute Toxic Metabolic Encephalopathy 2/2 #Severe Sepsis, POA #UTI -Cont. inpatient medical care, cardiac monitoring -COVID NEGATIVE -Flu A/B negative -BCx growing Staph epi -UCx E. coli -Cont with vanco and meropenem per ID recs, will discuss duration of abx -Pulm following #Hypernatremia, resolved #Dehydration #elevated Hgb/Hct - likely 2/2 hemoconcentration -likely 2/2 dehydration -S/p D5W -monitor BMP -Renal following #Sinus Tachycardia - resolved -Likely multifactorial, 2/2 sepsis/dehydration -seen on EKG sinus tachycardia, HR 137, non-specific ST abnormalities -trop 0.011, 0.028 -CXR negative for acute process -BNP 288 -improved with volume expansion -cont. to monitor #Transaminitis -likely 2/2 sepsis -Abd US equivocal -Hepatitis panel negative -cont. to monitor LFTs, will consider GI eval #Severe protein calorie malnutrition #Physical Deconditioning -Dietitian and [facility] GIRL eval -Will consider adding Megace -PT/OT DVT PPx: lovenox Time spent on encounter: 35 mins, >50% on coordination of care. Subjective Date patient seen: Feb 02, 2020 Time patient seen: 09:51 ROS Limited/Unobtainable: Yes Allergies: Coded Allergies: No Known Allergies (Unverified , 01/29/20) Subjective Follow up for Objective Last 24 Hour Vital Signs Date Time Temp Pulse Resp B/P (MAP) Pulse Ox O2 Delivery O2 Flow Rate FiO2 02/02/20 09:00 56 129/69 02/02/20 08:00 97.5 56 18 129/69 (89) 97 02/02/20 04:00 97.2 64 20 120/65 (83) 96 02/02/20 00:00 97.5 60 20 123/64 (83) 97 02/01/20 21:47 Room Air 02/01/20 20:00 97.8 61 20 147/67 (93) 96 02/01/20 16:00 98.3 59 17 129/59 (82) 97 02/01/20 12:00 98.1 58 18 156/64 (94) 97 Intake and Output 02/01/20 02/02/20 19:00 07:00 Intake Total 375 ml 916.666 ml Output Total 500 ml Balance -125 ml 916.666 ml IV Total 375 ml 916.666 ml Output Urine Total 500 ml # Voids 2 # Bowel Movements 2 Laboratory Tests 02/02/20 06:10: Sodium Level 138, Potassium Level 4.9, Chloride Level 108H, Carbon Dioxide Level 23, Anion Gap 7, Blood Urea Nitrogen 10, Creatinine 0.4L, Estimat Glomerular Filtration Rate > 60, Glucose Level 103, Calcium Level 8.8, Total Bilirubin 0.6, Aspartate Amino Transf (AST/SGOT) 37, Alanine Aminotransferase ( ALT/SGPT) 80H, Alkaline Phosphatase 92, Total Protein 6.3L, Albumin 2.6L, Globulin 3.7, Albumin/Globulin Ratio 0.7L 02/02/20 08:05: Phosphorus Level 3.5, Magnesium Level 2.2 Height (Feet): 5 Height (Inches): 4.00 Weight (Pounds): 99 Isai Carvajal MD Feb 02, 2020 10:15
--- NOTE | 2020-02-02 11:01 | Pulmonology Progress Note ---
Assessment/Plan Assessment/Plan IMPRESSION: 1. UTI. esbl e coli 2. Severe hypernatremia. improved 3. Rule out COVID-19. Negative x 1 4. detention resident. 5. Hypertension. DISCUSSION: Will continue oxygen p.r.n. Continue broad-spectrum antibiotics I will follow carefully. Subjective Interval Events: None new Constitutional: Reports: no symptoms HEENT: Repors: no symptoms Respiratory: Reports: no symptoms Cardiovascular: Reports: no symptoms Gastrointestinal/Abdominal: Reports: no symptoms Allergies: Coded Allergies: No Known Allergies (Unverified , 01/29/20) Objective Last 24 Hour Vital Signs Date Time Temp Pulse Resp B/P (MAP) Pulse Ox O2 Delivery O2 Flow Rate FiO2 02/02/20 09:00 56 129/69 02/02/20 08:00 97.5 56 18 129/69 (89) 97 02/02/20 04:00 97.2 64 20 120/65 (83) 96 02/02/20 00:00 97.5 60 20 123/64 (83) 97 02/01/20 21:47 Room Air 02/01/20 20:00 97.8 61 20 147/67 (93) 96 02/01/20 16:00 98.3 59 17 129/59 (82) 97 02/01/20 12:00 98.1 58 18 156/64 (94) 97 Intake and Output 02/01/20 02/02/20 19:00 07:00 Intake Total 375 ml 916.666 ml Output Total 500 ml Balance -125 ml 916.666 ml IV Total 375 ml 916.666 ml Output Urine Total 500 ml # Voids 2 # Bowel Movements 2 General Appearance: no acute distress HEENT: normocephalic Respiratory/Chest: chest wall non-tender Cardiovascular: normal peripheral pulses Abdomen: normal bowel sounds Microbiology Date/Time Source Procedure Growth Status 01/31/20 12:05 Blood Blood Culture - Preliminary NO GROWTH AFTER 24 HOURS Resulted 01/31/20 11:55 Blood Blood Culture - Preliminary NO GROWTH AFTER 24 HOURS Resulted Laboratory Tests 02/02/20 06:10: Sodium Level 138, Potassium Level 4.9, Chloride Level 108H, Carbon Dioxide Level 23, Anion Gap 7, Blood Urea Nitrogen 10, Creatinine 0.4L, Estimat Glomerular Filtration Rate > 60, Glucose Level 103, Calcium Level 8.8, Total Bilirubin 0.6, Aspartate Amino Transf (AST/SGOT) 37, Alanine Aminotransferase ( ALT/SGPT) 80H, Alkaline Phosphatase 92, Total Protein 6.3L, Albumin 2.6L, Globulin 3.7, Albumin/Globulin Ratio 0.7L 02/02/20 08:05: Phosphorus Level 3.5, Magnesium Level 2.2 Current Medications Medications (Trade) Dose Ordered Sig/Tory Route PRN Reason Start Time Stop Time Status Last Admin Dose Admin Acetaminophen (Tylenol) 650 mg Q4H PRN ORAL For Pain 01/31/20 14:00 02/28/20 13:59 Amlodipine Besylate (Norvasc) 5 mg DAILY ORAL 02/01/20 09:00 02/29/20 08:59 02/01/20 08:49 Dextrose (Dextrose 50%) 25 ml Q30M PRN IV Hypoglycemia 01/31/20 13:00 04/28/20 13:59 Dextrose (Dextrose 50%) 50 ml Q30M PRN IV Hypoglycemia 01/31/20 13:00 04/28/20 13:59 Enoxaparin Sodium (Lovenox) 40 mg Q24H SUBQ 01/31/20 21:00 04/28/20 20:59 02/01/20 21:56 Fish Oil (Fish Oil) 1,000 mg BID ORAL 01/31/20 18:00 03/01/20 17:59 02/01/20 17:10 Folic Acid (Folate) 2 mg DAILY ORAL 02/01/20 09:00 03/01/20 08:59 02/01/20 08:50 Meropenem 500 mg/ Sodium Chloride 50 ml @ 100 mls/hr EVERY 8 HOURS IVPB 01/31/20 22:00 02/05/20 21:59 02/02/20 05:27 Ondansetron HCl (Zofran) 4 mg Q6H PRN IVP Nausea & Vomiting 01/31/20 13:00 02/28/20 12:59 Potassium Chloride (K-Dur) 40 meq DAILY ORAL 02/01/20 09:00 05/01/20 08:59 02/01/20 08:49 Vancomycin HCl (Vanco rx to dose) 1 ea DAILY PRN MISC Per rx protocol 02/01/20 09:00 02/29/20 13:14 Vancomycin HCl 750 mg/Dextrose 275 ml @ 183.333 mls/hr Q12H IVPB 01/31/20 21:00 02/05/20 20:59 02/02/20 09:22 Tip Moreno MD Feb 02, 2020 11:01
--- NOTE | 2020-02-02 11:10 | NUR ---
NURSE NOTES: patient was assessed by wound care nurse due to sacral unstageable wound. Patient also noted with redness on left elbow, right hip and bilateral heels.Proper wound care done and received wound care physician order.
--- NOTE | 2020-02-02 11:20 | Nephrology Progress Note ---
Assessment/Plan Problem List: (1) Hypernatremia (2) Dehydration (3) UTI (urinary tract infection) (4) Acute metabolic encephalopathy (5) Sepsis Assessment Renal impression: Patient has hypernatremia which is indicative of free water depletion, meanwhile elevated hemoglobin indicative of hemoconcentration due to dehydration Other significant conditions: Sepsis/UTI COVID exposure, pending rule out Toxic metabolic encephalopathy UTI History of hypertension Plan Suggestions: Discontinue D5W as serum sodium normalized Folic acid p.o. Fish oil for high triglycerides Monitor serum sodium and renal parameters Antibiotics Keep the blood pressure in check Per consultants Subjective ROS Limited/Unobtainable: No Constitutional: Reports: malaise, weakness Objective Objective Last 24 Hour Vital Signs Date Time Temp Pulse Resp B/P (MAP) Pulse Ox O2 Delivery O2 Flow Rate FiO2 02/02/20 09:00 56 129/69 02/02/20 08:00 97.5 56 18 129/69 (89) 97 02/02/20 04:00 97.2 64 20 120/65 (83) 96 02/02/20 00:00 97.5 60 20 123/64 (83) 97 02/01/20 21:47 Room Air 02/01/20 20:00 97.8 61 20 147/67 (93) 96 02/01/20 16:00 98.3 59 17 129/59 (82) 97 02/01/20 12:00 98.1 58 18 156/64 (94) 97 Intake and Output 02/01/20 02/02/20 19:00 07:00 Intake Total 375 ml 916.666 ml Output Total 500 ml Balance -125 ml 916.666 ml IV Total 375 ml 916.666 ml Output Urine Total 500 ml # Voids 2 # Bowel Movements 2 Laboratory Tests 02/02/20 06:10: Sodium Level 138, Potassium Level 4.9, Chloride Level 108H, Carbon Dioxide Level 23, Anion Gap 7, Blood Urea Nitrogen 10, Creatinine 0.4L, Estimat Glomerular Filtration Rate > 60, Glucose Level 103, Calcium Level 8.8, Total Bilirubin 0.6, Aspartate Amino Transf (AST/SGOT) 37, Alanine Aminotransferase ( ALT/SGPT) 80H, Alkaline Phosphatase 92, Total Protein 6.3L, Albumin 2.6L, Globulin 3.7, Albumin/Globulin Ratio 0.7L 02/02/20 08:05: Phosphorus Level 3.5, Magnesium Level 2.2 Height (Feet): 5 Height (Inches): 4.00 Weight (Pounds): 99 General Appearance: no apparent distress Respiratory/Chest: decreased breath sounds Abdomen: soft Objective No change Shawn Ferguson MD Feb 02, 2020 11:20
--- NOTE | 2020-02-02 11:38 | NUR ---
CASE MANAGEMENT:REVIEW SI;SEPSIS. UTI. ENCEPHALOPATHY. FTT. 97.8 56 20 147/67 96% ON RA CL 108 CR 0.4 ALT 80 IS;MEROPENEM IV Q8 HRS VANCOMYCIN IV Q12 HRS LOVENOX SUBQ WD K-DUR PO QD MED SURG STATUS DCP;[facility];CONTINUE VANCO AND MEROPENEM
[2020-02-02 12:00] VITALS: BP 112/59
--- NOTE | 2020-02-02 12:29 | NUR ---
ST NOTES: REFERRED FOR SWALLOW EVALUATION BY DR HORTON, SEE FULL REPORT. DYSPHAGIA AND ASPIRATION RISK FACTORS FOR THIS 64 Y.O. CROATIAN-SPEAKING FEMALE: ACUTE ISSUES: AMS (TOXIC-MET ENCEPHALOPATHY), SEPSIS, DEHYDRATION, R/O COVID (NEGATIVE), FEVER, ADULT FTT (WAS ON MEGESTROL 40 MG AT SNF NOT NOW), SINUS TACHYCARDIA, RESP RATE RAPID 24 BPM ON ROOM AIR AT TIMES, TRANSAMINITIS, HIGH BP, HYPERNATREMIA H/O NEURO D/O, ? S/S OF DEMENTIA BUT NO DX IN CHART (CHEWS LIQUIDS AND NONVERBAL)CARDIAC AND GI DISORDERS, ADULT FTT, ANEMIA, PSYCH (SCHIZOPHRENIA NO MEDS NOW). REDUCED HEARING. POLST/AD NONE AND NO FAMILY NOR CONSERVATOR PER SNF AND CHART INFORMATION (REGARDING PREFERENCES FOR TUBE FEEDINGS). AT SNF ON A PUREED AND THIN LIQUIDS DIET AND CRUSHED MEDS. NOW ON A PUREED AND THIN LIQUID DIET WITH POOR INTAKE REFUSES OR TAKES 25%. PER RN, SHE REFUSES PO AND MEDS WITH MULTIPLE NURSES BY SQUEEZING HER LIPS CLOSED. PER EXECUTIVE SECRETARY SOCIAL WELFARE, MJ, PT TOO SLEEPY FOR PO FOR BREAKFAST. PER RD OVERWEIGHT WITH BMI 29 PLUS. LIBERALIZE DIET AND SEND ENSURE ENLIVE. ALERT BUT NONVERBAL. SPOKE TO PATIENT IN CROATIAN. POOR FOLLOWING ORAL COMMANDS. ON ROOM AIR RESP RATE 20 BPM. INITIAL IMPRESSION: S/S A MILD TO MODERATE OROPHARYNGEAL DYSPHAGIA WITH SIGNIFICANT INCREASE IN ORAL PREP AND OROPHARYNGEAL TRANSIT TIMES. GIVEN TSP NECTAR THICK LIQUIDS, SWALLOWED WITHIN IN 2-3 SECONDS, NO ORAL RESIDUE NO OVERT ASPIRATION. GIVEN SIP VIA CUP NECTAR THICK LIQUIDS, SWALLOWED AFTER 3-5 SECONDS, NO ORAL RESIDUE NO OVERT ASPIRATION. 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 HAS SILENT ASPIRATION RISK DUE TO COGNITIVE DEFICITS (NOT YET FORMALLY DIAGNOSED) BUT LUNGS ARE CLEAR ASP RISK DUE TO NEED FOR A FEEDER HAS RESPIRATORY-SWALLOWING INCOORDINATION ASPIRATION RISKS (RESP RATE AT 24 BPM AT REST AT TIMES OK WITH THESE TRIALS AT 20) SO SHE NEEDS TO REST IF SOB POOR INTAKE RISK FOR MALNUTRITION/DEHYDRATION (WAS ON MEGESTROL AT [facility] NOT NOW) RECOMMENDATIONS: COMPLETE MOD BARIUM SWALLOW STUDY IP OR PT IF DC DOWNGRADE TO LIQUIFIED PUREED LIKE NECTAR THICK SOUP WITH NECTAR THICK LIQUIDS AND HIGH POPPY SUP (LIBERALIZE DIET TYPE AND SEND ENSURE ENLIVE TID PER RD) STRICT ASPIRATION PRECAUTIONS AND ONE TO ONE FEEDING (USE CROATIAN WHEN FEEDING HER) CRUSH CRUSHABLE MEDS AND MAKE NECTAR THICK LIQUID CONSISTENCY 24 HOUR CALORIE COUNT AND CONSIDER MEGACE APPETITE STIMULANT SKILLED DYSPHAGIA MANAGEMENT AND TX AND COG-COM EVAL/TX EDUCATED/TRAINED STAFF (MIKE ACOSTA AND VEENA BARKER WHO SPEAKS CROATIAN) IN ASP PRECAUTIONS AND ASKED HER TO SET UP SUCTION AND CHECK MOUTH (OR PALPATE THROAT FOR SWALLOW) SINCE PT TENDS TO HOLD FOOD IN MOUTH. LEFT MESSAGE WITH MD ABOUT NEURO CONSULT TO R/O DEMENTIA (ALZHEIMER'S DZ OR OTHER CAUSE). HE AGREED. ALSO MENTIONED PT HAD SCHIZOPHRENIA ON SNF NOTES BUT NOT ON MEDS (WAS ON MEDS AT [facility] AND CHECK FOR TARDIVE DYSKINESIA WAS ALSO ON HALDOL AT [facility]). HE WILL CHECK INTO THIS AND I CONVEYED INFORMATION TO RN. Addendum: 02/02/20 at 1249 by CHRIS BOO APPEALS NURSE AT [facility], CROATIAN-SPEAKING JM CURIEL, SAID PATIENTS SPIT OUT ALL OF HER PUREED NECTAR THICK SOUP DIET TRIALS (TSP) BUT DRANK ALL OF THE HIGH CALORIE DRINK VIA TSP.
--- NOTE | 2020-02-02 15:53 | Consultation ---
History of Present Illness General Date patient seen: Feb 02, 2020 Reason for Hospitalization: Altered Mental Status Present Illness HPI 64 year old female senior living resident with multiple medical comorbidities was noted to have fevers and altered mental status. UTI. admitted for care and management. r/o COVID. large DTI sacrum. Noted to have opening now surgery called to evaluate and assist with care. BMI 17, alb low, malnutrition. Allergies: Coded Allergies: No Known Allergies (Unverified , 01/29/20) COVID-19 Screening Contact w/high risk pt: Yes Recent Travel to affected area: No Experienced COVID-19 symptoms?: Yes COVID-19 symptoms experienced: Fever (T>100.4F or >38C) Medication History Scheduled Amlodipine Besylate* (Amlodipine Besylate*), 5 MG ORAL DAILY, (Reported) Enoxaparin* (Lovenox*), 40 MG SUBQ DAILY, (Reported) Scheduled PRN Acetaminophen* (Acetaminophen 325MG Tablet*), 650 MG ORAL Q4H PRN for For Pain, (Reported) Miscellaneous Medications Megestrol Acetate (Megestrol Acetate), 40 MG PO, (Reported) Patient History Limited by: medical condition History Provided By: Medical Record, PMD Healthcare decision maker none recorded Resuscitation status Advanced Directive on File No Past Medical/Surgical History Past Medical/Surgical History: (1) Decubitus skin ulcer (2) Sepsis (3) UTI (urinary tract infection) (4) Acute metabolic encephalopathy (5) Dehydration (6) Hypernatremia (7) Severe protein-calorie malnutrition Review of Systems Review of Symptoms General ROS: no weight loss or fever Psychological ROS: no depression or mood changes, no memory loss Ophthalmic ROS: no visual changes or eye irritation ENT ROS: no nasal congestion, hearing loss, dizziness Allergy and Immunology ROS: no allergic symptoms or urticaria Hematological and Lymphatic ROS: no swollen glands, unusual bleeding or bruising Endocrine ROS: no polyuria, polydipsia, weight changes, temperature intolerance Respiratory ROS: no cough, shortness of breath, or wheezing Cardiovascular ROS: no chest pain or dyspnea on exertion Gastrointestinal ROS: denies abdominal pain, bright red blood in stool. Musculoskeletal ROS: no myalgias or arthralgias Neurological ROS: no TIA or stroke symptoms Dermatological ROS: no new or changing skin lesions, rashes or pruritis Physical Exam Physical Exam General appearance: alert, cooperative, no distress, appears stated age Head: Normocephalic, without obvious abnormality, atraumatic Eyes: conjunctivae/corneas clear. PERRL, EOM's intact. Fundi benign Throat: Lips, mucosa, and tongue normal. Teeth and gums normal Neck: supple, symmetrical, trachea midline, no adenopathy, thyroid: not enlarged, symmetric, no tenderness/mass/nodules, no carotid bruit and no JVD Lungs: clear to auscultation bilaterally Heart: regular rate and rhythm, S1, S2 normal, no murmur, click, rub or gallop Abdomen: soft, non-tender. Bowel sounds normal. No masses, no organomegaly Extremities: extremities normal, atraumatic, no cyanosis or edema Pulses: 2+ and symmetric Skin: Skin see below Neurologic: Grossly normal Last 24 Hour Vital Signs Date Time Temp Pulse Resp B/P (MAP) Pulse Ox O2 Delivery O2 Flow Rate FiO2 02/02/20 12:00 97.3 62 17 112/59 (76) 96 62 02/02/20 09:00 56 129/69 02/02/20 08:00 97.5 56 18 129/69 (89) 97 02/02/20 04:00 97.2 64 20 120/65 (83) 96 02/02/20 00:00 97.5 60 20 123/64 (83) 97 02/01/20 21:47 Room Air 02/01/20 20:00 97.8 61 20 147/67 (93) 96 02/01/20 16:00 98.3 59 17 129/59 (82) 97 Intake and Output 02/01/20 02/02/20 19:00 07:00 Intake Total 375 ml 916.666 ml Output Total 500 ml Balance -125 ml 916.666 ml IV Total 375 ml 916.666 ml Output Urine Total 500 ml # Voids 2 # Bowel Movements 2 Laboratory Tests Test 02/02/20 06:10 02/02/20 08:05 Sodium Level 138 MMOL/L (136-145) Potassium Level 4.9 MMOL/L (3.5-5.1) Chloride Level 108 MMOL/L (98-107) H Carbon Dioxide Level 23 MMOL/L (21-32) Anion Gap 7 mmol/L (5-15) Blood Urea Nitrogen 10 mg/dL (7-18) Creatinine 0.4 MG/DL (0.55-1.30) L Estimat Glomerular Filtration Rate > 60 mL/min (>60) Glucose Level 103 MG/DL (74-106) Calcium Level 8.8 MG/DL (8.5-10.1) Total Bilirubin 0.6 MG/DL (0.2-1.0) Aspartate Amino Transf (AST/SGOT) 37 U/L (15-37) Alanine Aminotransferase (ALT/SGPT) 80 U/L (12-78) H Alkaline Phosphatase 92 U/L (46-116) Total Protein 6.3 G/DL (6.4-8.2) L Albumin 2.6 G/DL (3.4-5.0) L Globulin 3.7 g/dL Albumin/Globulin Ratio 0.7 (1.0-2.7) L Phosphorus Level 3.5 MG/DL (2.5-4.9) Magnesium Level 2.2 MG/DL (1.8-2.4) Height (Feet): 5 Height (Inches): 4.00 Weight (Pounds): 99 Medications Current Medications Medications (Trade) Dose Ordered Sig/Tory Route PRN Reason Start Time Stop Time Status Last Admin Dose Admin Acetaminophen (Tylenol) 650 mg Q4H PRN ORAL For Pain 01/31/20 14:00 02/28/20 13:59 Amlodipine Besylate (Norvasc) 5 mg DAILY ORAL 02/01/20 09:00 02/29/20 08:59 02/01/20 08:49 Dextrose (Dextrose 50%) 25 ml Q30M PRN IV Hypoglycemia 01/31/20 13:00 04/28/20 13:59 Dextrose (Dextrose 50%) 50 ml Q30M PRN IV Hypoglycemia 01/31/20 13:00 04/28/20 13:59 Enoxaparin Sodium (Lovenox) 40 mg Q24H SUBQ 01/31/20 21:00 04/28/20 20:59 02/01/20 21:56 Fish Oil (Fish Oil) 1,000 mg BID ORAL 01/31/20 18:00 03/01/20 17:59 02/01/20 17:10 Folic Acid (Folate) 2 mg DAILY ORAL 02/01/20 09:00 03/01/20 08:59 02/01/20 08:50 Meropenem 500 mg/ Sodium Chloride 50 ml @ 100 mls/hr EVERY 8 HOURS IVPB 01/31/20 22:00 02/05/20 21:59 02/02/20 13:51 Ondansetron HCl (Zofran) 4 mg Q6H PRN IVP Nausea & Vomiting 01/31/20 13:00 02/28/20 12:59 Potassium Chloride (K-Dur) 40 meq DAILY ORAL 02/01/20 09:00 05/01/20 08:59 02/01/20 08:49 Vancomycin HCl (Vanco rx to dose) 1 ea DAILY PRN MISC Per rx protocol 02/01/20 09:00 02/29/20 13:14 Vancomycin HCl 750 mg/Dextrose 275 ml @ 183.333 mls/hr Q12H IVPB 01/31/20 21:00 02/05/20 20:59 02/02/20 09:22 Assessment/Plan Problem List: (1) Decubitus skin ulcer Assessment & Plan: Patient presented on admission with large sacral deep tissue injury unstageable decubitus ulcer. Noted to have 2 areas of epidermal breakdown with underlying tissue was purple and pink somewhat blanchable in certain areas. No signs of active infection noted mild discomfort reported with palpation No underlying fluctuance identified Seemingly newly formed and will need to be monitored closely for further breakdown. Treatment plan Wash sacral decubitus ulcer daily with normal saline. Apply skin protectant and foam dressing. Will need to monitor closely for further breakdown. Unable to stage exact course of disease at this time given the deep tissue injury along with unstageable area of breakdown. Turn every 2 hours Offload pressure and heels with pillow Heel protectors Nutritional optimization patient's BMI and albumin low. Nutritional input appreciated Air mattress We will follow with recommendations thank you ICD Codes: L89.90 - Pressure ulcer of unspecified site, unspecified stage SNOMED: 000111082 (2) Sepsis Assessment & Plan: Gallbladder is unremarkable, without stones, wall thickening , nor pericholecystic fluid. Sonographic Vallecillo's sign is negative. Common bile duct measures 7 mm in diameter. No intrahepatic biliary ductal dilatation. Liver demonstrates normal echogenicity, no focal abnormality. Portal vein and hepatic veins are patent. Pancreas is unremarkable. Spleen is unremarkable. Left kidney measures 11.6 cm in length. Right kidney measures 9.9 cm length. Both kidneys demonstrate normal echogenicity. There is no hydronephrosis. No focal abnormality . Abdominal aorta is partially obscured by bowel gas, visualized portions are non-aneurysmal . Impression: Mildly ectatic common bile duct, may be age-related but downstream obstruction not completely excludable. Correlate with liver function tests, consider MRCP for further evaluation if clinically indicated Negative for gallstones or other significant abnormality. Note nonvisualization of the distal abdominal aorta likely UTI no abd pathology decubitus not infected ICD Codes: A41.9 - Sepsis, unspecified organism SNOMED: 08441064 Qualifiers: Qualified Codes: A41.9 - Sepsis, unspecified organism; R65.20 - Severe sepsis without septic shock; G93.40 - Encephalopathy, unspecified (3) UTI (urinary tract infection) Assessment & Plan: on abx as per ID ICD Codes: N39.0 - Urinary tract infection, site not specified SNOMED: 16621926 Qualifiers: Qualified Codes: N39.0 - Urinary tract infection, site not specified (4) Acute metabolic encephalopathy ICD Codes: G93.41 - Metabolic encephalopathy SNOMED: 26883159, 526067291 (5) Dehydration ICD Codes: E86.0 - Dehydration SNOMED: 80035258 (6) Hypernatremia ICD Codes: E87.0 - Hyperosmolality and hypernatremia SNOMED: 208352989 (7) Severe protein-calorie malnutrition Assessment & Plan: DAILY ESTIMATED NEEDS: Needs based on Wound 60kg abw 25-30 kcals/kg 0663-6137 total kcals 1.25-1.5 g protein/kg 75-90 g total protein 25-30 mL/kg 4590-7229 total fluid mLs NUTRITION DIAGNOSIS: Increased pro needs r/t wound healing as evidenced by sacral unstageable wound. CURRENT DIET:Regular puree PO DIET RECOMMENDATIONS: Maintain Regular liberalized diet w/ poor intake ADDITIONAL RECOMMENDATIONS: 1) Rec CUSTOMER ACCOUNTS ADVISOR eval for appropriate texture for improved acceptance 2) Add Ensure 1 bottle w/ meals 3) Wound care: Add BEATRIZ BID + Vit C 250mg BID F/up w/ WC eval 4) Maintain calibrated bed scale wts 5) Monitor BG, need for hypoglycemics ICD Codes: E43 - Unspecified severe protein-calorie malnutrition SNOMED: 793037104, 100361279, [id number] Pavan Maddox Feb 02, 2020 15:53
[2020-02-02 16:00] VITALS: BP 106/52
--- NOTE | 2020-02-02 16:07 | NUR ---
NURSE NOTES:WOUND CARE NOTES:Pt presented on admission with Sacral DTPI which is now evolving(L)11.6cm x (W)16cm. Base of wound has soft necrosis at sacrococcygeal area, surrounding areas are maroon with scattered open wounds that has Biofilm at base of each opening. Several pockets that are indurated also noted within base of wound.Irregular borders that are adherent to base of wound. Non-blanching erythema without induration or fluctuance R trochanter. Pt moaned when affected area minimally palpated.(L)6cm x (W)4.8cm L heel is boggy with non-blanchable erythema(L)6.5cm x (W)8cm. Pt flinched and moaned when heel minimally palpated. R heel boggy with non-blanchable erythema(L)4.5cm x (W)6cm. Pt did not exhibit any distress to indicate pain when heel palpated. An area of dry brown skin discoloration noted to L lateral Malleolus.(L)2cm x (W)2cm. No other skin concerns noted> Tx.Plan: Cleanse Sacral wound with Saline. Apply Therahoney to open areas within wound. Apply Moisture Barrier Paste Periwound. Cover with Optifoam drsg. Change Daily and prn. Apply Cavilon Skin Barrier to R and L trochanter. Cover with Optifoam drsg. Change every 7 days and prn. Apply Cavilon Skin Barrier to both heels. Cover each heel with Optifoam drsg. Change every 7 days and prn. APM/ADOLFO Mattress overlay. Reposition at least every 2hours or as tolerated. Off-load heels with pillow. Addendum: 02/02/20 at 1827 by Debbie Kilpatrick LVN ADDENDUM TO ABOVE WOUND NOTES: Pt also noted to have non-blanchable erythema without induration or fluctuance R and L elbows. Tx: Apply Cavilon Skin Barrier to Each elbow. Cover each elbow with Optifoam drsg. Change every 7 days and prn.
--- NOTE | 2020-02-02 16:14 | Infectious Diseases Prog Note ---
Assessment/Plan Assessment/Plan ASSESSMENT AND PLAN: 1. 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 The patient has a history of arthrosclerosis of aorta. 3. History of urinary tract infection. 4. Anemia. 5. Malnutrition. 6. Pak. 7. Altered mental status. 8. The patient comes from [facility] that has COVID-19 positive patients. 9. No allergies. 10. Social history is negative. 11. Family history is noncontributory. 12. MAR is noted. 13. Case discussed with RN. 14. Case discussed with Dr. Ramirez. 15. Continue treatment per primary consultants. Subjective Constitutional: Denies: fever HEENT: Denies: congestion Respiratory: Denies: shortness of breath Cardiovascular: Denies: chest pain Gastrointestinal/Abdominal: Denies: nausea Genitourinary: Reports: other - no foely Neurologic: Denies: headache Psychiatric: Denies: depression Skin: Denies: rash Hematologic: Denies: bleeding Musculoskeletal: Denies: pain Allergies: Coded Allergies: No Known Allergies (Unverified , 01/29/20) Objective Vital Signs Last 24 Hour Vital Signs Date Time Temp Pulse Resp B/P (MAP) Pulse Ox O2 Delivery O2 Flow Rate FiO2 02/02/20 12:00 97.3 62 17 112/59 (76) 96 62 02/02/20 09:00 56 129/69 02/02/20 08:00 97.5 56 18 129/69 (89) 97 02/02/20 04:00 97.2 64 20 120/65 (83) 96 02/02/20 00:00 97.5 60 20 123/64 (83) 97 02/01/20 21:47 Room Air 02/01/20 20:00 97.8 61 20 147/67 (93) 96 Height (Feet): 5 Height (Inches): 4.00 Weight (Pounds): 99 General Appearance: no acute distress HEENT: normocephalic, atraumatic, anicteric, mucous membranes moist Respiratory/Chest: lungs clear, normal breath sounds, no respiratory distress, no accessory muscle use Cardiovascular: normal rate, regular rhythm, no gallop/murmur, no JVD Abdomen: normal bowel sounds, soft, non tender, no organomegaly, non distended Genitourinary: other - + pak Extremities: no cyanosis Skin: no rash Neurologic/Psychiatric: licensed club manager II-XII grossly normal, alert, responsive Lymphatic: no neck adenopathy Musculoskeletal: no effusion Objective Chest x-ray - TECHNIQUE: Frontal view of the chest. COMPARISON: No relevant prior studies available. FINDINGS: Lungs: Unremarkable. The lungs appear clear. No focal consolidation. Pleural space: Unremarkable. The costophrenic angles are sharp. No visible pneumothorax. Heart: Unremarkable. No cardiomegaly. Mediastinum: Unremarkable. Bones/joints: Degenerative changes throughout the visualized spine and shoulder joints. Vasculature: Atherosclerotic calcifications within the aortic arch. Tubes, lines and devices: Telemetry leads overlie the thorax. IMPRESSION: No acute findings. Microbiology Date/Time Source Procedure Growth Status 01/31/20 12:05 Blood Blood Culture - Preliminary NO GROWTH AFTER 24 HOURS Resulted 01/31/20 11:55 Blood Blood Culture - Preliminary NO GROWTH AFTER 24 HOURS Resulted Laboratory Tests Test 02/02/20 06:10 02/02/20 08:05 Sodium Level 138 MMOL/L (136-145) Potassium Level 4.9 MMOL/L (3.5-5.1) Chloride Level 108 MMOL/L (98-107) H Carbon Dioxide Level 23 MMOL/L (21-32) Anion Gap 7 mmol/L (5-15) Blood Urea Nitrogen 10 mg/dL (7-18) Creatinine 0.4 MG/DL (0.55-1.30) L Estimat Glomerular Filtration Rate > 60 mL/min (>60) Glucose Level 103 MG/DL (74-106) Calcium Level 8.8 MG/DL (8.5-10.1) Total Bilirubin 0.6 MG/DL (0.2-1.0) Aspartate Amino Transf (AST/SGOT) 37 U/L (15-37) Alanine Aminotransferase (ALT/SGPT) 80 U/L (12-78) H Alkaline Phosphatase 92 U/L (46-116) Total Protein 6.3 G/DL (6.4-8.2) L Albumin 2.6 G/DL (3.4-5.0) L Globulin 3.7 g/dL Albumin/Globulin Ratio 0.7 (1.0-2.7) L Phosphorus Level 3.5 MG/DL (2.5-4.9) Magnesium Level 2.2 MG/DL (1.8-2.4) Current Medications Medications (Trade) Dose Ordered Sig/Tory Route PRN Reason Start Time Stop Time Status Last Admin Dose Admin Acetaminophen (Tylenol) 650 mg Q4H PRN ORAL For Pain 01/31/20 14:00 02/28/20 13:59 Amlodipine Besylate (Norvasc) 5 mg DAILY ORAL 02/01/20 09:00 02/29/20 08:59 02/01/20 08:49 Ascorbic Acid (Vitamin C) 250 mg TWICE A DAY ORAL 02/02/20 18:00 03/03/20 17:59 Dextrose (Dextrose 50%) 25 ml Q30M PRN IV Hypoglycemia 01/31/20 13:00 04/28/20 13:59 Dextrose (Dextrose 50%) 50 ml Q30M PRN IV Hypoglycemia 01/31/20 13:00 04/28/20 13:59 Enoxaparin Sodium (Lovenox) 40 mg Q24H SUBQ 01/31/20 21:00 04/28/20 20:59 02/01/20 21:56 Fish Oil (Fish Oil) 1,000 mg BID ORAL 01/31/20 18:00 03/01/20 17:59 02/01/20 17:10 Folic Acid (Folate) 2 mg DAILY ORAL 02/01/20 09:00 03/01/20 08:59 02/01/20 08:50 Meropenem 500 mg/ Sodium Chloride 50 ml @ 100 mls/hr EVERY 8 HOURS IVPB 01/31/20 22:00 02/05/20 21:59 02/02/20 13:51 Ondansetron HCl (Zofran) 4 mg Q6H PRN IVP Nausea & Vomiting 01/31/20 13:00 02/28/20 12:59 Potassium Chloride (K-Dur) 40 meq DAILY ORAL 02/01/20 09:00 05/01/20 08:59 02/01/20 08:49 Vancomycin HCl (Vanco rx to dose) 1 ea DAILY PRN MISC Per rx protocol 02/01/20 09:00 02/29/20 13:14 Vancomycin HCl 750 mg/Dextrose 275 ml @ 183.333 mls/hr Q12H IVPB 01/31/20 21:00 02/05/20 20:59 02/02/20 09:22 Alfonso Sotomayor MD Feb 02, 2020 16:14
[2020-02-02] MEDS: Ascorbic Acid 500mg tab ORAL SCH (17:53)
--- NOTE | 2020-02-02 18:03 | NUR ---
NURSE NOTES: Received order from Dr. Regalado for physician consult with Dr. Owen due to patient took haldol @ [facility] for psychosis and schizo and neurology consult. RN recommended megace since patient took megace @ the [facility] but Dr. Regalado declined. patient is on calorie count x 24hr. Patient refused to eat by closing her mouth.Encouraged patient to increase po intake. Will continue to monitor.
--- NOTE | 2020-02-02 19:30 | NUR ---
HAND-OFF: Report given to Xyrece/Haja and endorsed plan of care.
--- NOTE | 2020-02-02 19:35 | NUR ---
NURSE NOTES: Received patient in bed, awake, verbal and a&o x1. pt is on room air , no sob, no complain of pain and vitals are stable. Both IV sites are clean dry and intact. pt is bedbound and her wound dresses are clean, dry and intact. pt is on Hogan catheter; intact, secure and in place. Fall and aspiration precaution are applied. Bed is lowered position, locked, and alarm is on. Call light within reach. We will keep monitoring
[2020-02-02 20:00] VITALS: BP 115/57
[2020-02-02] MEDS ORDERED: LORazepam Inj 2mg/ml 1ml IM PRN (20:15)
[2020-02-02] MEDS: Enoxaparin 40mg Inj SUBQ SCH (22:22)
[2020-02-02] MEDS: ZyPREXA Zydis 10mg tab ORAL SCH (22:24)
--- NOTE | 2020-02-02 22:29 | Initial Psychiatric Evaluation ---
Psychiatry Consultation Psychiatry Consultation Chief Complaint: Altered Mental Status Allergies: Coded Allergies: No Known Allergies (Unverified , 01/29/20) Medication History Scheduled Amlodipine Besylate* (Amlodipine Besylate*), 5 MG ORAL DAILY, (Reported) Enoxaparin* (Lovenox*), 40 MG SUBQ DAILY, (Reported) Scheduled PRN Acetaminophen* (Acetaminophen 325MG Tablet*), 650 MG ORAL Q4H PRN for For Pain, (Reported) Miscellaneous Medications Megestrol Acetate (Megestrol Acetate), 40 MG PO, (Reported) Objective Data Height (Feet): 5 Height (Inches): 4.00 Weight (Pounds): 99 Lynda Owen MD Feb 02, 2020 22:29
[2020-02-03] VITALS: BP 120/62
--- NOTE | 2020-02-03 02:00 | NUR ---
NURSE NOTES: Pt is in bed asleep, no sob and vitals are stable. Pt took all her medication and tolerated well. All needs are met. wound kept clean,dry and intact. Bed is in the lower position, locked and alarm is on. call light is within reach. We will continue monitoring.
[2020-02-03 04:00] VITALS: BP 118/60
--- NOTE | 2020-02-03 07:10 | NUR ---
HAND-OFF: Report given to MIKE Borjas.
--- NOTE | 2020-02-03 07:20 | NUR ---
NURSE NOTES: Received patient in bed. Awake, Alert x1. Irish speaking. On room air, respirations unlabored. Patient denies pain at this time. IV in the right forearm, site is intact. Call light within reach. Bed low and locked.
[2020-02-03 08:00] VITALS: BP 113/53
[2020-02-03] MEDS: Ascorbic Acid 500mg tab ORAL SCH ×2 (08:39→17:42)
--- NOTE | 2020-02-03 10:33 | NUR ---
RD ASSESSMENT & RECOMMENDATIONS SEE CARE ACTIVITY FOR COMPLETE ASSESSMENT POPPY COUNT X 24 HRS COMPLETED - incomplete data, only one meal ticket available for review Upon RD visit, pt asleep. breakfast tray not yet touched. One meal ticket from yesterday available for review -> lunch on 02/01 refused all meal items except 100% ensure consumed. (350kcal/20g prot per bottle of Ensure Enlive) Breakfast on 02/01 per EMR -> refused Dinner on 02/01 per EMR -> 50% per EMR, but per RN note, "Patient refused to eat by closing her mouth" Pt with 0-50% intake of meals w/ many refusing meals since adm. Ensure appears to be better accepted than meal items, but Ensure intake also variable. Observed 4 unopened ensure bottles (received prior to texture downgrade to NTL by LEATHER SOFTENER) at bedside. Pt remains full code at this time. Pt on Megace YARD MOTOR OPERATOR, but per RN, denied adding Megace. If PEG part of TF, pt will benefit from GT feeds due to prolonged oral intake, already underweight status, pt w/ skin breakdown and at risk for further skin breakdown. DAILY ESTIMATED NEEDS: Needs based on Wound, underweight/ 46kg 30-35 kcals/kg 0992-7227 total kcals 1.25-1.8 g protein/kg 58-83 g total protein 25-30 mL/kg 1043-9098 total fluid mLs NUTRITION DIAGNOSIS: Increased kcal/prot needs r/t wound healing, underweight status as evidenced by sacral DTPI wound and pt at 84% IBW w/ BMI of 17.4, currently w/ poor and variable PO intake. CURRENT DIET:Regular/ liquify pureed + NTL PO DIET RECOMMENDATIONS: Regular liberalized diet w/ poor intake +Ensure Enlive TID w/ meals ENTERAL NUTRITION RECOMMENDATIONS: IF PART OF POC -> Jevity 1.2 @ 55ml/hr x 24 hrs to provide 1320ml, 1584kcal, 73g prot, 1065ml free water * IF PART OF POC, REC TF (ngt or gt)TO MEET NUTRITIONAL NEEDS DUE TO PROLONGED POOR AND VARIABLE PO INTAKE, PT ALREADY UNDERWEIGHT, W/ SKIN BREAKDOWN* -> w/ GI access, initiate Jevity 1.2 @ 15ml/hr x 6 hrs -> advance 10ml q 4-6 hrs as tolerated to goal rate -> HOB Over 30 degrees -> Without IVF, rec water flush of 100ml q 8 hrs -> Pt at high risk for refeeding syndrome, monitor lytes, replete prn ADDITIONAL RECOMMENDATIONS: 1) W/ oral diet: continue Ensure TID w/ meals (350kcal/20 g prot) 2) Wound care: continue Vit C 250mg BID add MVI x 1/ Dipak BID as tolerated 3) Calibrated bedscale wt (w/ added p200 mattress + pump) 4) POPPY COUNT X 24 HRS COMPLETED 02/02 -> INADEQUATE INTAKE 5) Monitor lytes, replete as needed
--- NOTE | 2020-02-03 10:33 | Pulmonology Progress Note ---
Assessment/Plan Assessment/Plan IMPRESSION: 1. UTI. esbl e coli 2. Severe hypernatremia. improved 3. Rule out COVID-19. Negative x 1 4. [facility] resident. 5. Hypertension. DISCUSSION: Will continue oxygen p.r.n. Continue broad-spectrum antibiotics I will follow carefully. Subjective Interval Events: None new Constitutional: Reports: no symptoms HEENT: Repors: no symptoms Respiratory: Reports: no symptoms Cardiovascular: Reports: no symptoms Allergies: Coded Allergies: No Known Allergies (Unverified , 01/29/20) Objective Last 24 Hour Vital Signs Date Time Temp Pulse Resp B/P (MAP) Pulse Ox O2 Delivery O2 Flow Rate FiO2 02/03/20 08:39 63 113/53 02/03/20 08:00 98.2 63 17 113/53 (73) 100 02/03/20 04:00 97.4 68 19 118/60 (79) 95 02/03/20 00:00 97.8 76 19 120/62 (81) 95 02/02/20 22:00 Room Air 02/02/20 20:00 97.5 70 19 115/57 (76) 95 02/02/20 16:00 97.5 67 17 106/52 (70) 96 02/02/20 12:00 97.3 62 17 112/59 (76) 96 62 Intake and Output 02/02/20 02/03/20 19:00 07:00 Intake Total 1195 ml 100 ml Output Total 850 ml 500 ml Balance 345 ml -400 ml Intake Oral 720 ml IV Total 475 ml 100 ml Output Urine Total 850 ml 500 ml # Voids 1 General Appearance: no acute distress HEENT: normocephalic Respiratory/Chest: chest wall non-tender, lungs clear Cardiovascular: normal peripheral pulses, normal rate Abdomen: normal bowel sounds Microbiology Date/Time Source Procedure Growth Status 01/31/20 12:05 Blood Blood Culture - Preliminary NO GROWTH AFTER 48 HOURS Resulted 01/31/20 11:55 Blood Blood Culture - Preliminary NO GROWTH AFTER 48 HOURS Resulted Current Medications Medications (Trade) Dose Ordered Sig/Tory Route PRN Reason Start Time Stop Time Status Last Admin Dose Admin Acetaminophen (Tylenol) 650 mg Q4H PRN ORAL For Pain 01/31/20 14:00 02/28/20 13:59 Amlodipine Besylate (Norvasc) 5 mg DAILY ORAL 02/01/20 09:00 02/29/20 08:59 02/03/20 08:39 Ascorbic Acid (Vitamin C) 250 mg TWICE A DAY ORAL 02/02/20 18:00 03/03/20 17:59 02/03/20 08:39 Dextrose (Dextrose 50%) 25 ml Q30M PRN IV Hypoglycemia 01/31/20 13:00 04/28/20 13:59 Dextrose (Dextrose 50%) 50 ml Q30M PRN IV Hypoglycemia 01/31/20 13:00 04/28/20 13:59 Enoxaparin Sodium (Lovenox) 40 mg Q24H SUBQ 01/31/20 21:00 04/28/20 20:59 02/02/20 22:22 Fish Oil (Fish Oil) 1,000 mg BID ORAL 01/31/20 18:00 03/01/20 17:59 02/03/20 08:38 Folic Acid (Folate) 2 mg DAILY ORAL 02/01/20 09:00 03/01/20 08:59 02/03/20 08:39 Lorazepam (Ativan 2mg/ml 1ml) 1 mg Q4H PRN IM For Anxiety 02/02/20 20:15 02/09/20 20:14 Meropenem 500 mg/ Sodium Chloride 50 ml @ 100 mls/hr EVERY 8 HOURS IVPB 01/31/20 22:00 02/05/20 21:59 02/03/20 05:41 Olanzapine (ZyPREXA Zydis) 10 mg BEDTIME ORAL 02/02/20 21:00 03/18/20 20:59 02/02/20 22:24 Ondansetron HCl (Zofran) 4 mg Q6H PRN IVP Nausea & Vomiting 01/31/20 13:00 02/28/20 12:59 Potassium Chloride (K-Dur) 40 meq DAILY ORAL 02/01/20 09:00 05/01/20 08:59 02/03/20 08:38 Tip Moreno MD Feb 03, 2020 10:33
[2020-02-03 12:00] VITALS: BP 107/48
--- NOTE | 2020-02-03 12:05 | NUR ---
CASE MANAGEMENT:REVIEW SI;UTI. MALNUTRITION. AMS. FTT. SEPSIS. 98.2 76 19 113/53 95% ON RA NO LABS AVAILABLE IS;MEROPENEM IV Q8 HRS LOVENOX SUBQ Q24 HRS ZYPREXA PO HS K-DUR PO QD MED SURG STATUS DCP;PATIENT IS FROM [facility]
--- NOTE | 2020-02-03 12:36 | General Progress Note ---
Assessment/Plan Assessment/Plan: 64-year-old female from [facility] w/H encephalopathy, UTI, anemia, atherosclerosis of aorta who presents with acute altered mentation, fevers and failure to thrive. Pt found to be septic, temperature 100.9, HR 120, RR 24, sepsis bolus was given in the ED, Vanc, Zosyn, gentamicin were given. #Acute Toxic Metabolic Encephalopathy 2/2 #Severe Sepsis, POA #UTI -Cont. inpatient medical care, cardiac monitoring -COVID NEGATIVE -Flu A/B negative -BCx growing Staph epi -UCx E. coli -Cont with meropenem day #6/7 -Pulm and ID following #Hypernatremia, resolved #Dehydration #elevated Hgb/Hct - likely 2/2 hemoconcentration -likely 2/2 dehydration -S/p D5W -monitor BMP -Renal following #Sinus Tachycardia - resolved -Likely multifactorial, 2/2 sepsis/dehydration -seen on EKG sinus tachycardia, HR 137, non-specific ST abnormalities -trop 0.011, 0.028 -CXR negative for acute process -BNP 288 -improved with volume expansion -cont. to monitor #Transaminitis -likely 2/2 sepsis -Abd US equivocal -Hepatitis panel negative -cont. to monitor LFTs, will consider GI eval #Severe protein calorie malnutrition #Physical Deconditioning -Dietitian and OVENS SUPERVISOR eval -GI consulted for PEG -PT/OT DVT PPx: lovenox Time spent on encounter: 35 mins, >50% on coordination of care. Subjective Date patient seen: Feb 03, 2020 Time patient seen: 12:34 ROS Limited/Unobtainable: Yes Allergies: Coded Allergies: No Known Allergies (Unverified , 01/29/20) Subjective Follow up for severe sepsis, E. coli UTI, acute metabolic encephalopathy, severe protein calorie malnutrition POA No events overnight. Tolerating IV abx Objective Last 24 Hour Vital Signs Date Time Temp Pulse Resp B/P (MAP) Pulse Ox O2 Delivery O2 Flow Rate FiO2 02/03/20 09:00 Room Air 02/03/20 08:39 63 113/53 02/03/20 08:00 98.2 63 17 113/53 (73) 100 02/03/20 04:00 97.4 68 19 118/60 (79) 95 02/03/20 00:00 97.8 76 19 120/62 (81) 95 02/02/20 22:00 Room Air 02/02/20 20:00 97.5 70 19 115/57 (76) 95 02/02/20 16:00 97.5 67 17 106/52 (70) 96 Intake and Output 02/02/20 02/03/20 19:00 07:00 Intake Total 1195 ml 100 ml Output Total 850 ml 500 ml Balance 345 ml -400 ml Intake Oral 720 ml IV Total 475 ml 100 ml Output Urine Total 850 ml 500 ml # Voids 1 Height (Feet): 5 Height (Inches): 4.00 Weight (Pounds): 99 General Appearance: alert, confused Neck: supple Cardiovascular: normal rate, regular rhythm Respiratory/Chest: lungs clear, normal breath sounds, no respiratory distress Isai Carvajal MD Feb 03, 2020 12:36
--- NOTE | 2020-02-03 13:11 | General Progress Note ---
Assessment/Plan Problem List: (1) Anemia ICD Codes: D64.9 - Anemia, unspecified SNOMED: 047143632 (2) FTT (failure to thrive) in adult ICD Codes: R62.7 - Adult failure to thrive SNOMED: 276201998 (3) Severe protein-calorie malnutrition ICD Codes: E43 - Unspecified severe protein-calorie malnutrition SNOMED: 344629860, 603384654, 981147435 (4) Hypernatremia ICD Codes: E87.0 - Hyperosmolality and hypernatremia SNOMED: 685787608 (5) Dehydration ICD Codes: E86.0 - Dehydration SNOMED: 61586667 (6) Acute metabolic encephalopathy ICD Codes: G93.41 - Metabolic encephalopathy SNOMED: 31609090, 527989437 (7) UTI (urinary tract infection) ICD Codes: N39.0 - Urinary tract infection, site not specified SNOMED: 88103894 Qualifiers: Qualified Codes: N39.0 - Urinary tract infection, site not specified (8) Sepsis ICD Codes: A41.9 - Sepsis, unspecified organism SNOMED: 38252858 Qualifiers: Qualified Codes: A41.9 - Sepsis, unspecified organism; R65.20 - Severe sepsis without septic shock; G93.40 - Encephalopathy, unspecified Assessment/Plan: anemia work up add low dose megace pending adoption social worker consult for finding family plan PEG when consented Subjective ROS Limited/Unobtainable: No Allergies: Coded Allergies: No Known Allergies (Unverified , 01/29/20) Objective Last 24 Hour Vital Signs Date Time Temp Pulse Resp B/P (MAP) Pulse Ox O2 Delivery O2 Flow Rate FiO2 02/03/20 09:00 Room Air 02/03/20 08:39 63 113/53 02/03/20 08:00 98.2 63 17 113/53 (73) 100 02/03/20 04:00 97.4 68 19 118/60 (79) 95 02/03/20 00:00 97.8 76 19 120/62 (81) 95 02/02/20 22:00 Room Air 02/02/20 20:00 97.5 70 19 115/57 (76) 95 02/02/20 16:00 97.5 67 17 106/52 (70) 96 Intake and Output 02/02/20 02/03/20 19:00 07:00 Intake Total 1195 ml 100 ml Output Total 850 ml 500 ml Balance 345 ml -400 ml Intake Oral 720 ml IV Total 475 ml 100 ml Output Urine Total 850 ml 500 ml # Voids 1 Height (Feet): 5 Height (Inches): 4.00 Weight (Pounds): 99 General Appearance: lethargic EENT: normal ENT inspection Neck: supple Cardiovascular: normal rate Respiratory/Chest: decreased breath sounds Abdomen: normal bowel sounds, non tender, soft Extremities: non-tender Min Salazar MD Feb 03, 2020 13:11
--- NOTE | 2020-02-03 13:35 | Nephrology Progress Note ---
Assessment/Plan Problem List: (1) Hypernatremia (2) Dehydration (3) UTI (urinary tract infection) (4) Acute metabolic encephalopathy (5) Sepsis Assessment Renal impression: Patient has hypernatremia which is indicative of free water depletion, meanwhile elevated hemoglobin indicative of hemoconcentration due to dehydration Other significant conditions: Sepsis/UTI COVID exposure, pending rule out Toxic metabolic encephalopathy UTI History of hypertension Plan Suggestions: Discontinue D5W as serum sodium normalized Folic acid p.o. Fish oil for high triglycerides Monitor serum sodium and renal parameters Antibiotics Keep the blood pressure in check Per consultants Remains stable from renal standpoint to view Subjective ROS Limited/Unobtainable: No Constitutional: Reports: malaise, weakness Objective Objective Last 24 Hour Vital Signs Date Time Temp Pulse Resp B/P (MAP) Pulse Ox O2 Delivery O2 Flow Rate FiO2 02/03/20 09:00 Room Air 02/03/20 08:39 63 113/53 02/03/20 08:00 98.2 63 17 113/53 (73) 100 02/03/20 04:00 97.4 68 19 118/60 (79) 95 02/03/20 00:00 97.8 76 19 120/62 (81) 95 02/02/20 22:00 Room Air 02/02/20 20:00 97.5 70 19 115/57 (76) 95 02/02/20 16:00 97.5 67 17 106/52 (70) 96 Intake and Output 02/02/20 02/03/20 19:00 07:00 Intake Total 1195 ml 100 ml Output Total 850 ml 500 ml Balance 345 ml -400 ml Intake Oral 720 ml IV Total 475 ml 100 ml Output Urine Total 850 ml 500 ml # Voids 1 No labs drawn today Height (Feet): 5 Height (Inches): 4.00 Weight (Pounds): 99 General Appearance: no apparent distress, lethargic Objective No change Shawn Ferguson MD Feb 03, 2020 13:35
[2020-02-03] MEDS: Heparin 5000 units/ml inj SUBQ SCH ×2 (13:38→22:53)
--- NOTE | 2020-02-03 14:22 | NUR ---
BAREBACK RIDER NOTE SW received a consult to locate family. SW attempted to meet w/ pt and obtain information. Per chart review, pt is monolingual Vietnamese. Pt presents as A&O 1x. Pt is awake and oriented to her name but she was unable to verbalize any words or sentences. Pt was unable to communicate w/ this SW. SW left a message to [facility] SW for call back. Bethany Rubin [phone] (temporarily disconnected, in process of jewish) Dinah (admission coordinator) [phone]
--- NOTE | 2020-02-03 14:42 | Surgery Progress Note ---
Surgery Progress Note Subjective Additional Comments no acute events stable comfortable Objective Last 24 Hour Vital Signs Date Time Temp Pulse Resp B/P (MAP) Pulse Ox O2 Delivery O2 Flow Rate FiO2 02/03/20 12:00 98.4 62 19 107/48 (67) 100 02/03/20 09:00 Room Air 02/03/20 08:39 63 113/53 02/03/20 08:00 98.2 63 17 113/53 (73) 100 02/03/20 04:00 97.4 68 19 118/60 (79) 95 02/03/20 00:00 97.8 76 19 120/62 (81) 95 02/02/20 22:00 Room Air 02/02/20 20:00 97.5 70 19 115/57 (76) 95 02/02/20 16:00 97.5 67 17 106/52 (70) 96 I&O Intake and Output 02/02/20 02/03/20 19:00 07:00 Intake Total 1195 ml 100 ml Output Total 850 ml 500 ml Balance 345 ml -400 ml Intake Oral 720 ml IV Total 475 ml 100 ml Output Urine Total 850 ml 500 ml # Voids 1 Dressing: other Wound: other Drains: other Cardiovascular: RSR Respiratory: decreased breath sounds Abdomen: soft, non-tender, present bowel sounds Extremities: no edema, no tenderness, no cyanosis Plan Problems: (1) Decubitus skin ulcer Assessment & Plan: Patient presented on admission with large sacral deep tissue injury unstageable decubitus ulcer. Noted to have 2 areas of epidermal breakdown with underlying tissue was purple and pink somewhat blanchable in certain areas. No signs of active infection noted mild discomfort reported with palpation No underlying fluctuance identified Seemingly newly formed and will need to be monitored closely for further breakdown. Treatment plan Wash sacral decubitus ulcer daily with normal saline. Apply skin protectant and foam dressing. Will need to monitor closely for further breakdown. Unable to stage exact course of disease at this time given the deep tissue injury along with unstageable area of breakdown. Turn every 2 hours Offload pressure and heels with pillow Heel protectors Nutritional optimization patient's BMI and albumin low. Nutritional input appreciated Air mattress We will follow with recommendations thank you (2) Sepsis Assessment & Plan: Gallbladder is unremarkable, without stones, wall thickening , nor pericholecystic fluid. Sonographic Vallecillo's sign is negative. Common bile duct measures 7 mm in diameter. No intrahepatic biliary ductal dilatation. Liver demonstrates normal echogenicity, no focal abnormality. Portal vein and hepatic veins are patent. Pancreas is unremarkable. Spleen is unremarkable. Left kidney measures 11.6 cm in length. Right kidney measures 9.9 cm length. Both kidneys demonstrate normal echogenicity. There is no hydronephrosis. No focal abnormality . Abdominal aorta is partially obscured by bowel gas, visualized portions are non-aneurysmal . Impression: Mildly ectatic common bile duct, may be age-related but downstream obstruction not completely excludable. Correlate with liver function tests, consider MRCP for further evaluation if clinically indicated Negative for gallstones or other significant abnormality. Note nonvisualization of the distal abdominal aorta likely UTI no abd pathology decubitus not infected (3) UTI (urinary tract infection) Assessment & Plan: on abx as per ID (4) Acute metabolic encephalopathy (5) Dehydration (6) Hypernatremia (7) Severe protein-calorie malnutrition Assessment & Plan: DAILY ESTIMATED NEEDS: Needs based on Wound 60kg abw 25-30 kcals/kg 2855-1488 total kcals 1.25-1.5 g protein/kg 75-90 g total protein 25-30 mL/kg 6675-9136 total fluid mLs NUTRITION DIAGNOSIS: Increased pro needs r/t wound healing as evidenced by sacral unstageable wound. CURRENT DIET:Regular puree PO DIET RECOMMENDATIONS: Maintain Regular liberalized diet w/ poor intake ADDITIONAL RECOMMENDATIONS: 1) Rec FOOD AND BEVERAGE LEAD eval for appropriate texture for improved acceptance 2) Add Ensure 1 bottle w/ meals 3) Wound care: Add BEATRIZ BID + Vit C 250mg BID F/up w/ WC eval 4) Maintain calibrated bed scale wts 5) Monitor BG, need for hypoglycemics Pavan Maddox Feb 03, 2020 14:41
[2020-02-03 16:00] VITALS: BP 113/56
[2020-02-03] MEDS: Megace 400mg/10ml Susp ORAL SCH (17:42)
--- NOTE | 2020-02-03 19:20 | NUR ---
HAND-OFF: Report given to Valerie MCKEON.
[2020-02-03 20:00] VITALS: BP 115/71
--- NOTE | 2020-02-03 20:00 | NUR ---
NURSE NOTES: Patient in bed, awake, no apparent distress in room air. IV intact and patent. Wound dressings c/d/i. FC draining via gravity, secured to leg. Will continue to monitor.
[2020-02-03] MEDS: ZyPREXA Zydis 10mg tab ORAL SCH (20:07)
--- NOTE | 2020-02-03 22:59 | Progress Note ---
DATE: 02/03/2020 SUBJECTIVE: Patient is weak, presents with low energy, fatigue. Patient has episodes of anxiety. Has no behavior issues. She is eating. Her appetite is minimal. She took her medication by mouth today. MENTAL STATUS EXAMINATION: Patient is awake, alert, disoriented, minimally verbal. Mood is dysphoric. Affect is constricted, congruent with mood. Thought process is concrete. Thought content, no suicidal or homicidal ideation. Cognition is impaired. Insight and judgment is impaired. ASSESSMENT: 1. Failure to thrive. 2. Psychotic disorder. PLAN: 1. Continue Zyprexa. 2. I am treating this patient outside of the hospital at [facility]. Lynda Owen M.D. DR: JANNA JOB#: [id number] CC:
[2020-02-04] VITALS: BP 110/61
--- NOTE | 2020-02-04 03:20 | NUR ---
HAND-OFF: Report given to Jay MCKEON. Pt calm and sleeping, no distress.
--- NOTE | 2020-02-04 03:25 | NUR ---
NURSE NOTES: Pt. received from MIKE Padilla. Pt. asleep at this time, no indications of respiratory distress, no indications of pain. IV right forearm 22g intact, tko. Hogan intact and draining yellow urine well. Bed is low and locked, side rails x2 up, bed alarm active, and call light is in reach. Will continue to monitor.
[2020-02-04 04:00] VITALS: BP 115/73
[2020-02-04] MEDS: Heparin 5000 units/ml inj SUBQ SCH ×3 (05:13→21:59)
[2020-02-04 06:46] LABS: BASOPHILS % (AUTO) 1.1 % (0.0-2.0); EOSINOPHILS % (AUTO) 8.3 % (0.0-3.0); HEMATOCRIT 41.3 % (37.0-47.0); LYMPHOCYTES % (AUTO) 34.4 % (20.0-45.0); MEAN CORPUSCULAR VOLUME 90 FL (80-99); MONOCYTES % (AUTO) 7.2 % (1.0-10.0); NEUTROPHILS % (AUTO) 49.1 % (45.0-75.0); PLATELET COUNT 212 K/UL (150-450); RED CELL DISTRIBUTION WIDTH 11.4 % (11.6-14.8); WHITE BLOOD COUNT 6.6 K/UL (4.8-10.8)
[2020-02-04 07:19] LABS: ALANINE AMINOTRANSFERASE 79 U/L (12-78); ALBUMIN 3.2 G/DL (3.4-5.0); ALBUMIN/GLOBULIN RATIO 0.9 (1.0-2.7); ALKALINE PHOSPHATASE 97 U/L (46-116); ANION GAP 7 mmol/L (5-15); ASPARTATE AMINO TRANSFERASE 29 U/L (15-37); BILIRUBIN,TOTAL 0.3 MG/DL (0.2-1.0); BLOOD UREA NITROGEN 10 mg/dL (7-18); CALCIUM 9.6 MG/DL (8.5-10.1); CARBON DIOXIDE 30 MMOL/L (21-32); CHLORIDE 109 MMOL/L (98-107); CREATININE 0.4 MG/DL (0.55-1.30); POTASSIUM 3.8 MMOL/L (3.5-5.1); SODIUM 145 MMOL/L (136-145)
--- NOTE | 2020-02-04 07:45 | NUR ---
HAND-OFF: Report given to MIKE Nixon.
[2020-02-04 07:51] LABS: FERRITIN 332 NG/ML (8-388)
[2020-02-04 08:00] VITALS: BP 131/80
[2020-02-04 08:07] LABS: PHOSPHORUS 3.5 MG/DL (2.5-4.9)
[2020-02-04 08:08] LABS: % IRON SATURATION 28 % (15-50); IRON 43 ug/dL (50-175); TOTAL IRON BINDING CAPACITY 156 ug/dL (250-450)
--- NOTE | 2020-02-04 09:39 | General Progress Note ---
Assessment/Plan Problem List: (1) Anemia ICD Codes: D64.9 - Anemia, unspecified SNOMED: 387831414 (2) FTT (failure to thrive) in adult ICD Codes: R62.7 - Adult failure to thrive SNOMED: 356988693 (3) Severe protein-calorie malnutrition ICD Codes: E43 - Unspecified severe protein-calorie malnutrition SNOMED: 949887566, 114284428, 782563268 (4) Hypernatremia ICD Codes: E87.0 - Hyperosmolality and hypernatremia SNOMED: 697941441 (5) Dehydration ICD Codes: E86.0 - Dehydration SNOMED: 30605354 (6) Acute metabolic encephalopathy ICD Codes: G93.41 - Metabolic encephalopathy SNOMED: 47462554, 229188552 (7) UTI (urinary tract infection) ICD Codes: N39.0 - Urinary tract infection, site not specified SNOMED: 84723185 Qualifiers: Qualified Codes: N39.0 - Urinary tract infection, site not specified (8) Sepsis ICD Codes: A41.9 - Sepsis, unspecified organism SNOMED: 93466557 Qualifiers: Qualified Codes: A41.9 - Sepsis, unspecified organism; R65.20 - Severe sepsis without septic shock; G93.40 - Encephalopathy, unspecified Assessment/Plan: anemia work up megace sub Q heparin pending social security benefits interviewer consult for finding family plan PEG when consented Subjective ROS Limited/Unobtainable: No Allergies: Coded Allergies: No Known Allergies (Unverified , 01/29/20) Objective Last 24 Hour Vital Signs Date Time Temp Pulse Resp B/P (MAP) Pulse Ox O2 Delivery O2 Flow Rate FiO2 02/04/20 08:00 98.0 101 20 131/80 (97) 91 02/04/20 04:00 98.1 67 16 115/73 (87) 96 02/04/20 00:00 98.4 72 18 110/61 (77) 100 02/03/20 21:00 Room Air 02/03/20 20:00 97.7 75 18 115/71 (86) 98 02/03/20 16:00 98.3 68 18 113/56 (75) 98 02/03/20 12:00 98.4 62 19 107/48 (67) 100 Intake and Output 02/03/20 02/04/20 19:00 07:00 Intake Total 15 ml 50 ml Output Total 600 ml 400 ml Balance -585 ml -350 ml Intake Oral 15 ml IV Total 50 ml Output Urine Total 600 ml 400 ml # Bowel Movements 1 1 Laboratory Tests 02/03/20 17:00: Stool Occult Blood [Pending] 02/04/20 06:15: White Blood Count 6.6, Red Blood Count 4.60, Hemoglobin 14.0, Hematocrit 41.3, Mean Corpuscular Volume 90, Mean Corpuscular Hemoglobin 30.4, Mean Corpuscular Hemoglobin Concent 33.8, Red Cell Distribution Width 11.4L, Platelet Count 212, Mean Platelet Volume 7.0, Neutrophils (%) (Auto) 49.1, Lymphocytes (%) (Auto) 34.4, Monocytes (%) (Auto) 7.2, Eosinophils (%) (Auto) 8.3H, Basophils (%) (Auto ) 1.1, Sodium Level 145, Potassium Level 3.8, Chloride Level 109H, Carbon Dioxide Level 30, Anion Gap 7, Blood Urea Nitrogen 10, Creatinine 0.4L, Estimat Glomerular Filtration Rate > 60, Glucose Level 83, Calcium Level 9.6, Phosphorus Level 3.5, Magnesium Level 2.3, Iron Level 43L, Total Iron Binding Capacity 156L, Percent Iron Saturation 28, Unsaturated Iron Binding 113, Ferritin 332, Total Bilirubin 0.3, Aspartate Amino Transf (AST/SGOT) 29, Alanine Aminotransferase (ALT/SGPT) 79H, Alkaline Phosphatase 97, Total Protein 6.9, Albumin 3.2L, Globulin 3.7, Albumin/Globulin Ratio 0.9L, Carcinoembryonic Antigen [Pending], Vitamin B12 Level 443, Folate 16.5 Height (Feet): 5 Height (Inches): 4.00 Weight (Pounds): 99 General Appearance: no apparent distress EENT: normal ENT inspection Neck: supple Cardiovascular: normal rate Respiratory/Chest: decreased breath sounds Abdomen: normal bowel sounds, non tender, soft Extremities: non-tender Min Salazar MD Feb 04, 2020 09:39
[2020-02-04] MEDS: Ascorbic Acid 500mg tab ORAL SCH ×2 (09:57→17:29)
[2020-02-04] MEDS: Megace 400mg/10ml Susp ORAL SCH ×2 (09:58→17:29)
--- NOTE | 2020-02-04 10:16 | NUR ---
OIL WELL SERVICE OPERATOR NOTE SW attempted to reach [facility] SW [phone]. SW will be available after 3pm.
--- NOTE | 2020-02-04 11:05 | Pulmonology Progress Note ---
Assessment/Plan Assessment/Plan IMPRESSION: 1. UTI. esbl e coli 2. Severe hypernatremia. improved 3. Rule out COVID-19. Negative x 1 4. intermediate resident. 5. Hypertension. DISCUSSION: Will continue oxygen p.r.n. Continue broad-spectrum antibiotics I will follow carefully. Subjective Interval Events: None new Constitutional: Reports: no symptoms HEENT: Repors: no symptoms Respiratory: Reports: no symptoms Cardiovascular: Reports: no symptoms Allergies: Coded Allergies: No Known Allergies (Unverified , 01/29/20) Objective Last 24 Hour Vital Signs Date Time Temp Pulse Resp B/P (MAP) Pulse Ox O2 Delivery O2 Flow Rate FiO2 02/04/20 09:58 101 131/80 02/04/20 08:00 98.0 101 20 131/80 (97) 91 02/04/20 04:00 98.1 67 16 115/73 (87) 96 02/04/20 00:00 98.4 72 18 110/61 (77) 100 02/03/20 21:00 Room Air 02/03/20 20:00 97.7 75 18 115/71 (86) 98 02/03/20 16:00 98.3 68 18 113/56 (75) 98 02/03/20 12:00 98.4 62 19 107/48 (67) 100 Intake and Output 02/03/20 02/04/20 19:00 07:00 Intake Total 15 ml 50 ml Output Total 600 ml 400 ml Balance -585 ml -350 ml Intake Oral 15 ml IV Total 50 ml Output Urine Total 600 ml 400 ml # Bowel Movements 1 1 General Appearance: no acute distress HEENT: normocephalic Respiratory/Chest: chest wall non-tender Cardiovascular: normal peripheral pulses Abdomen: normal bowel sounds Laboratory Tests 02/03/20 17:00: Stool Occult Blood [Pending] 02/04/20 06:15: White Blood Count 6.6, Red Blood Count 4.60, Hemoglobin 14.0, Hematocrit 41.3, Mean Corpuscular Volume 90, Mean Corpuscular Hemoglobin 30.4, Mean Corpuscular Hemoglobin Concent 33.8, Red Cell Distribution Width 11.4L, Platelet Count 212, Mean Platelet Volume 7.0, Neutrophils (%) (Auto) 49.1, Lymphocytes (%) (Auto) 34.4, Monocytes (%) (Auto) 7.2, Eosinophils (%) (Auto) 8.3H, Basophils (%) (Auto ) 1.1, Sodium Level 145, Potassium Level 3.8, Chloride Level 109H, Carbon Dioxide Level 30, Anion Gap 7, Blood Urea Nitrogen 10, Creatinine 0.4L, Estimat Glomerular Filtration Rate > 60, Glucose Level 83, Calcium Level 9.6, Phosphorus Level 3.5, Magnesium Level 2.3, Iron Level 43L, Total Iron Binding Capacity 156L, Percent Iron Saturation 28, Unsaturated Iron Binding 113, Ferritin 332, Total Bilirubin 0.3, Aspartate Amino Transf (AST/SGOT) 29, Alanine Aminotransferase (ALT/SGPT) 79H, Alkaline Phosphatase 97, Total Protein 6.9, Albumin 3.2L, Globulin 3.7, Albumin/Globulin Ratio 0.9L, Carcinoembryonic Antigen [Pending], Vitamin B12 Level 443, Folate 16.5 Current Medications Medications (Trade) Dose Ordered Sig/Tory Route PRN Reason Start Time Stop Time Status Last Admin Dose Admin Acetaminophen (Tylenol) 650 mg Q4H PRN ORAL For Pain 01/31/20 14:00 02/28/20 13:59 Amlodipine Besylate (Norvasc) 5 mg DAILY ORAL 02/01/20 09:00 02/29/20 08:59 02/04/20 09:58 Ascorbic Acid (Vitamin C) 250 mg TWICE A DAY ORAL 02/02/20 18:00 03/03/20 17:59 02/04/20 09:57 Dextrose (Dextrose 50%) 25 ml Q30M PRN IV Hypoglycemia 01/31/20 13:00 04/28/20 13:59 Dextrose (Dextrose 50%) 50 ml Q30M PRN IV Hypoglycemia 01/31/20 13:00 04/28/20 13:59 Fish Oil (Fish Oil) 1,000 mg BID ORAL 01/31/20 18:00 03/01/20 17:59 02/04/20 09:57 Folic Acid (Folate) 2 mg DAILY ORAL 02/01/20 09:00 03/01/20 08:59 02/04/20 09:57 Heparin Sodium (Porcine) (Heparin 5000 units/ml) 5,000 units EVERY 8 HOURS SUBQ 02/03/20 14:00 03/19/20 13:59 02/04/20 05:13 Lorazepam (Ativan 2mg/ml 1ml) 1 mg Q4H PRN IM For Anxiety 02/02/20 20:15 02/09/20 20:14 Megestrol Acetate (Megace) 400 mg TWICE A DAY ORAL 02/03/20 18:00 05/03/20 17:59 02/04/20 09:58 Meropenem 500 mg/ Sodium Chloride 50 ml @ 100 mls/hr EVERY 8 HOURS IVPB 01/31/20 22:00 02/05/20 21:59 02/04/20 05:14 Olanzapine (ZyPREXA Zydis) 10 mg BEDTIME ORAL 02/02/20 21:00 03/18/20 20:59 02/03/20 20:07 Ondansetron HCl (Zofran) 4 mg Q6H PRN IVP Nausea & Vomiting 01/31/20 13:00 02/28/20 12:59 Potassium Chloride (K-Dur) 40 meq DAILY ORAL 02/01/20 09:00 05/01/20 08:59 02/04/20 09:58 Tip Moreno MD Feb 04, 2020 11:05
--- NOTE | 2020-02-04 11:55 | Nephrology Progress Note ---
Assessment/Plan Problem List: (1) Hypernatremia (2) Dehydration (3) UTI (urinary tract infection) (4) Acute metabolic encephalopathy (5) Sepsis Assessment Renal impression: Patient has hypernatremia which is indicative of free water depletion, meanwhile elevated hemoglobin indicative of hemoconcentration due to dehydration Other significant conditions: Sepsis/UTI COVID exposure, pending rule out Toxic metabolic encephalopathy UTI History of hypertension Plan Poor p.o. intake GT is a consideration, and I believe it is urgently needed since the patient is very malnourished Suggestions: Discontinue D5W as serum sodium normalized Folic acid p.o. Fish oil for high triglycerides Monitor serum sodium and renal parameters Antibiotics Keep the blood pressure in check Per consultants Remains stable from renal standpoint to view Subjective ROS Limited/Unobtainable: No Constitutional: Reports: malaise, weakness Objective Objective Last 24 Hour Vital Signs Date Time Temp Pulse Resp B/P (MAP) Pulse Ox O2 Delivery O2 Flow Rate FiO2 02/04/20 09:58 101 131/80 02/04/20 08:00 98.0 101 20 131/80 (97) 91 02/04/20 04:00 98.1 67 16 115/73 (87) 96 02/04/20 00:00 98.4 72 18 110/61 (77) 100 02/03/20 21:00 Room Air 02/03/20 20:00 97.7 75 18 115/71 (86) 98 02/03/20 16:00 98.3 68 18 113/56 (75) 98 02/03/20 12:00 98.4 62 19 107/48 (67) 100 Intake and Output 02/03/20 02/04/20 19:00 07:00 Intake Total 15 ml 50 ml Output Total 600 ml 400 ml Balance -585 ml -350 ml Intake Oral 15 ml IV Total 50 ml Output Urine Total 600 ml 400 ml # Bowel Movements 1 1 Laboratory Tests 02/03/20 17:00: Stool Occult Blood [Pending] 02/04/20 06:15: White Blood Count 6.6, Red Blood Count 4.60, Hemoglobin 14.0, Hematocrit 41.3, Mean Corpuscular Volume 90, Mean Corpuscular Hemoglobin 30.4, Mean Corpuscular Hemoglobin Concent 33.8, Red Cell Distribution Width 11.4L, Platelet Count 212, Mean Platelet Volume 7.0, Neutrophils (%) (Auto) 49.1, Lymphocytes (%) (Auto) 34.4, Monocytes (%) (Auto) 7.2, Eosinophils (%) (Auto) 8.3H, Basophils (%) (Auto ) 1.1, Sodium Level 145, Potassium Level 3.8, Chloride Level 109H, Carbon Dioxide Level 30, Anion Gap 7, Blood Urea Nitrogen 10, Creatinine 0.4L, Estimat Glomerular Filtration Rate > 60, Glucose Level 83, Calcium Level 9.6, Phosphorus Level 3.5, Magnesium Level 2.3, Iron Level 43L, Total Iron Binding Capacity 156L, Percent Iron Saturation 28, Unsaturated Iron Binding 113, Ferritin 332, Total Bilirubin 0.3, Aspartate Amino Transf (AST/SGOT) 29, Alanine Aminotransferase (ALT/SGPT) 79H, Alkaline Phosphatase 97, Total Protein 6.9, Albumin 3.2L, Globulin 3.7, Albumin/Globulin Ratio 0.9L, Carcinoembryonic Antigen [Pending], Vitamin B12 Level 443, Folate 16.5 Height (Feet): 5 Height (Inches): 4.00 Weight (Pounds): 99 General Appearance: no apparent distress Objective No change Shawn Ferguson MD Feb 04, 2020 11:55
[2020-02-04 12:00] VITALS: BP 124/58
--- NOTE | 2020-02-04 12:08 | General Progress Note ---
Assessment/Plan Assessment/Plan: 64-year-old female from [facility] w/PMH encephalopathy, UTI, anemia, atherosclerosis of aorta who presents with acute altered mentation, fevers and failure to thrive. Pt found to be septic, temperature 100.9, HR 120, RR 24, sepsis bolus was given in the ED, Vanc, Zosyn, gentamicin were given. #Acute Toxic Metabolic Encephalopathy 2/2 #Severe Sepsis, POA #UTI -Cont. inpatient medical care, cardiac monitoring -COVID NEGATIVE -Flu A/B negative -BCx growing Staph epi -UCx E. coli -Completes 7 days of meropenem today -Pulm and ID following #Hypernatremia, resolved #Dehydration #elevated Hgb/Hct - likely 2/2 hemoconcentration -likely 2/2 dehydration -S/p D5W -monitor BMP -Renal following #Sinus Tachycardia - resolved -Likely multifactorial, 2/2 sepsis/dehydration -seen on EKG sinus tachycardia, HR 137, non-specific ST abnormalities -trop 0.011, 0.028 -CXR negative for acute process -BNP 288 -improved with volume expansion -cont. to monitor #Transaminitis -likely 2/2 sepsis -Abd US equivocal -Hepatitis panel negative -cont. to monitor LFTs, will consider GI eval #Severe protein calorie malnutrition #Physical Deconditioning -Dietitian and STORY ANALYST eval -GI consulted for PEG, patient has no family to given consent. Will require 2 physician consent, discussed with Dr. Ferguson who agrees that patient needs feeding tube placement due to severe malnutrition. -PT/OT DVT PPx: lovenox Time spent on encounter: 35 mins, >50% on coordination of care. Subjective Date patient seen: Feb 04, 2020 Time patient seen: 10:21 ROS Limited/Unobtainable: Yes Allergies: Coded Allergies: No Known Allergies (Unverified , 01/29/20) Subjective Follow up for severe sepsis, E. coli UTI, acute metabolic encephalopathy, severe protein calorie malnutrition POA No events overnight. Seen by GI for possible PEG placement Objective Last 24 Hour Vital Signs Date Time Temp Pulse Resp B/P (MAP) Pulse Ox O2 Delivery O2 Flow Rate FiO2 02/04/20 09:58 101 131/80 02/04/20 08:00 98.0 101 20 131/80 (97) 91 02/04/20 04:00 98.1 67 16 115/73 (87) 96 02/04/20 00:00 98.4 72 18 110/61 (77) 100 02/03/20 21:00 Room Air 02/03/20 20:00 97.7 75 18 115/71 (86) 98 02/03/20 16:00 98.3 68 18 113/56 (75) 98 Intake and Output 02/03/20 02/04/20 19:00 07:00 Intake Total 15 ml 50 ml Output Total 600 ml 400 ml Balance -585 ml -350 ml Intake Oral 15 ml IV Total 50 ml Output Urine Total 600 ml 400 ml # Bowel Movements 1 1 Laboratory Tests 02/03/20 17:00: Stool Occult Blood [Pending] 02/04/20 06:15: White Blood Count 6.6, Red Blood Count 4.60, Hemoglobin 14.0, Hematocrit 41.3, Mean Corpuscular Volume 90, Mean Corpuscular Hemoglobin 30.4, Mean Corpuscular Hemoglobin Concent 33.8, Red Cell Distribution Width 11.4L, Platelet Count 212, Mean Platelet Volume 7.0, Neutrophils (%) (Auto) 49.1, Lymphocytes (%) (Auto) 34.4, Monocytes (%) (Auto) 7.2, Eosinophils (%) (Auto) 8.3H, Basophils (%) (Auto ) 1.1, Sodium Level 145, Potassium Level 3.8, Chloride Level 109H, Carbon Dioxide Level 30, Anion Gap 7, Blood Urea Nitrogen 10, Creatinine 0.4L, Estimat Glomerular Filtration Rate > 60, Glucose Level 83, Calcium Level 9.6, Phosphorus Level 3.5, Magnesium Level 2.3, Iron Level 43L, Total Iron Binding Capacity 156L, Percent Iron Saturation 28, Unsaturated Iron Binding 113, Ferritin 332, Total Bilirubin 0.3, Aspartate Amino Transf (AST/SGOT) 29, Alanine Aminotransferase (ALT/SGPT) 79H, Alkaline Phosphatase 97, Total Protein 6.9, Albumin 3.2L, Globulin 3.7, Albumin/Globulin Ratio 0.9L, Carcinoembryonic Antigen [Pending], Vitamin B12 Level 443, Folate 16.5 Height (Feet): 5 Height (Inches): 4.00 Weight (Pounds): 99 General Appearance: no apparent distress, alert, confused Cardiovascular: normal rate, regular rhythm Respiratory/Chest: lungs clear, normal breath sounds Abdomen: non tender, soft Isai Carvajal MD Feb 04, 2020 12:08
--- NOTE | 2020-02-04 12:39 | NUR ---
CASE MANAGEMENT:REVIEW SI;AC MET ENCEPHALOPATHY. SEVERE SEPSIS. AMS. FTT. 98.4 101 20 131/80 91% ON RA CL 109 CR 0.4 IRON 43 TIBC 156 IS;MEGACE PO BID ZYPREX po hs K-DUR PO QD MEROPENEM IV Q8 HRS FOLATE PO QD MED SURG STATUS DCP;FROM [facility] PLAN;PEG PLACEMENT
--- NOTE | 2020-02-04 14:28 | Infectious Diseases Prog Note ---
Assessment/Plan Assessment/Plan ASSESSMENT AND PLAN: 1. 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 The patient has a history of arthrosclerosis of aorta. 3. History of urinary tract infection. 4. Anemia. 5. Malnutrition. 6. Pak. 7. Altered mental status. 8. The patient comes from [facility] that has COVID-19 positive patients. 9. No allergies. 10. Social history is negative. 11. Family history is noncontributory. 12. MAR is noted. 13. Case discussed with RN. 14. Case discussed with Dr. Ramirez. 15. Continue treatment per primary consultants. Subjective Constitutional: Reports: fatigue; Denies: fever HEENT: Denies: congestion Respiratory: Denies: shortness of breath Cardiovascular: Denies: chest pain Gastrointestinal/Abdominal: Denies: nausea, vomiting Genitourinary: Reports: other - no pak Neurologic: Denies: headache Psychiatric: Denies: depression Hematologic: Denies: bleeding Musculoskeletal: Denies: pain Allergies: Coded Allergies: No Known Allergies (Unverified , 01/29/20) Objective Vital Signs Last 24 Hour Vital Signs Date Time Temp Pulse Resp B/P (MAP) Pulse Ox O2 Delivery O2 Flow Rate FiO2 02/04/20 12:00 98.2 80 18 124/58 (80) 98 02/04/20 09:58 101 131/80 02/04/20 08:00 98.0 101 20 131/80 (97) 91 02/04/20 04:00 98.1 67 16 115/73 (87) 96 02/04/20 00:00 98.4 72 18 110/61 (77) 100 02/03/20 21:00 Room Air 02/03/20 20:00 97.7 75 18 115/71 (86) 98 02/03/20 16:00 98.3 68 18 113/56 (75) 98 Height (Feet): 5 Height (Inches): 4.00 Weight (Pounds): 99 General Appearance: no acute distress HEENT: normocephalic, atraumatic, anicteric, mucous membranes moist Respiratory/Chest: lungs clear, normal breath sounds, no respiratory distress, no accessory muscle use Cardiovascular: normal rate, regular rhythm, no gallop/murmur, no JVD Abdomen: normal bowel sounds, soft, non tender, no organomegaly, non distended Genitourinary: other - + pak Extremities: no cyanosis Skin: no rash Neurologic/Psychiatric: wirer II-XII grossly normal, alert, oriented x 3, responsive Lymphatic: no neck adenopathy Musculoskeletal: no effusion Objective Chest x-ray - TECHNIQUE: Frontal view of the chest. COMPARISON: No relevant prior studies available. FINDINGS: Lungs: Unremarkable. The lungs appear clear. No focal consolidation. Pleural space: Unremarkable. The costophrenic angles are sharp. No visible pneumothorax. Heart: Unremarkable. No cardiomegaly. Mediastinum: Unremarkable. Bones/joints: Degenerative changes throughout the visualized spine and shoulder joints. Vasculature: Atherosclerotic calcifications within the aortic arch. Tubes, lines and devices: Telemetry leads overlie the thorax. IMPRESSION: No acute findings. Microbiology Date/Time Source Procedure Growth Status 01/31/20 12:05 Blood Blood Culture - Preliminary NO GROWTH AFTER 72 HOURS Resulted 01/29/20 12:10 Nasal Nares MRSA Culture - Final NO METHICILLIN RESISTANT STAPH AUREUS... Complete 01/29/20 11:43 Urine,Clean Catch Urine Culture - Final Escherichia Coli - Esbl Complete 01/29/20 12:10 Rectum - Final NO CARBAPENEM-RESISTANT ENTEROBACTERI... Complete Laboratory Tests Test 02/03/20 17:00 02/04/20 06:15 Stool Occult Blood Pending White Blood Count 6.6 K/UL (4.8-10.8) Red Blood Count 4.60 M/UL (4.20-5.40) Hemoglobin 14.0 G/DL (12.0-16.0) Hematocrit 41.3 % (37.0-47.0) Mean Corpuscular Volume 90 FL (80-99) Mean Corpuscular Hemoglobin 30.4 PG (27.0-31.0) Mean Corpuscular Hemoglobin Concent 33.8 G/DL (32.0-36.0) Red Cell Distribution Width 11.4 % (11.6-14.8) L Platelet Count 212 K/UL (150-450) Mean Platelet Volume 7.0 FL (6.5-10.1) Neutrophils (%) (Auto) 49.1 % (45.0-75.0) Lymphocytes (%) (Auto) 34.4 % (20.0-45.0) Monocytes (%) (Auto) 7.2 % (1.0-10.0) Eosinophils (%) (Auto) 8.3 % (0.0-3.0) H Basophils (%) (Auto) 1.1 % (0.0-2.0) Sodium Level 145 MMOL/L (136-145) Potassium Level 3.8 MMOL/L (3.5-5.1) Chloride Level 109 MMOL/L (98-107) H Carbon Dioxide Level 30 MMOL/L (21-32) Anion Gap 7 mmol/L (5-15) Blood Urea Nitrogen 10 mg/dL (7-18) Creatinine 0.4 MG/DL (0.55-1.30) L Estimat Glomerular Filtration Rate > 60 mL/min (>60) Glucose Level 83 MG/DL (74-106) Calcium Level 9.6 MG/DL (8.5-10.1) Phosphorus Level 3.5 MG/DL (2.5-4.9) Magnesium Level 2.3 MG/DL (1.8-2.4) Iron Level 43 ug/dL (50-175) L Total Iron Binding Capacity 156 ug/dL (250-450) L Percent Iron Saturation 28 % (15-50) Unsaturated Iron Binding 113 ug/dL (112-346) Ferritin 332 NG/ML (8-388) Total Bilirubin 0.3 MG/DL (0.2-1.0) Aspartate Amino Transf (AST/SGOT) 29 U/L (15-37) Alanine Aminotransferase (ALT/SGPT) 79 U/L (12-78) H Alkaline Phosphatase 97 U/L (46-116) Total Protein 6.9 G/DL (6.4-8.2) Albumin 3.2 G/DL (3.4-5.0) L Globulin 3.7 g/dL Albumin/Globulin Ratio 0.9 (1.0-2.7) L Carcinoembryonic Antigen Pending Vitamin B12 Level 443 PG/ML (193-986) Folate 16.5 NG/ML (8.6-58.9) Current Medications Medications (Trade) Dose Ordered Sig/Tory Route PRN Reason Start Time Stop Time Status Last Admin Dose Admin Acetaminophen (Tylenol) 650 mg Q4H PRN ORAL For Pain 01/31/20 14:00 02/28/20 13:59 Amlodipine Besylate (Norvasc) 5 mg DAILY ORAL 02/01/20 09:00 02/29/20 08:59 02/04/20 09:58 Ascorbic Acid (Vitamin C) 250 mg TWICE A DAY ORAL 02/02/20 18:00 03/03/20 17:59 02/04/20 09:57 Dextrose (Dextrose 50%) 25 ml Q30M PRN IV Hypoglycemia 01/31/20 13:00 04/28/20 13:59 Dextrose (Dextrose 50%) 50 ml Q30M PRN IV Hypoglycemia 01/31/20 13:00 04/28/20 13:59 Fish Oil (Fish Oil) 1,000 mg BID ORAL 01/31/20 18:00 03/01/20 17:59 02/04/20 09:57 Folic Acid (Folate) 2 mg DAILY ORAL 02/01/20 09:00 03/01/20 08:59 02/04/20 09:57 Heparin Sodium (Porcine) (Heparin 5000 units/ml) 5,000 units EVERY 8 HOURS SUBQ 02/03/20 14:00 03/19/20 13:59 02/04/20 14:03 Lorazepam (Ativan 2mg/ml 1ml) 1 mg Q4H PRN IM For Anxiety 02/02/20 20:15 02/09/20 20:14 Megestrol Acetate (Megace) 400 mg TWICE A DAY ORAL 02/03/20 18:00 05/03/20 17:59 02/04/20 09:58 Meropenem 500 mg/ Sodium Chloride 50 ml @ 100 mls/hr EVERY 8 HOURS IVPB 01/31/20 22:00 02/05/20 21:59 02/04/20 14:00 Olanzapine (ZyPREXA Zydis) 10 mg BEDTIME ORAL 02/02/20 21:00 03/18/20 20:59 02/03/20 20:07 Ondansetron HCl (Zofran) 4 mg Q6H PRN IVP Nausea & Vomiting 01/31/20 13:00 02/28/20 12:59 Potassium Chloride (K-Dur) 40 meq DAILY ORAL 02/01/20 09:00 7/6/20 08:59 02/04/20 09:58 Alfonso Sotomayor MD Feb 04, 2020 14:28
[2020-02-04 16:00] VITALS: BP 106/61
--- NOTE | 2020-02-04 16:10 | Surgery Progress Note ---
Surgery Progress Note Subjective Additional Comments no acute events comfortable stable mumbles words labs reviewed Objective Last 24 Hour Vital Signs Date Time Temp Pulse Resp B/P (MAP) Pulse Ox O2 Delivery O2 Flow Rate FiO2 02/04/20 12:00 98.2 80 18 124/58 (80) 98 02/04/20 09:58 101 131/80 02/04/20 08:00 98.0 101 20 131/80 (97) 91 02/04/20 04:00 98.1 67 16 115/73 (87) 96 02/04/20 00:00 98.4 72 18 110/61 (77) 100 02/03/20 21:00 Room Air 02/03/20 20:00 97.7 75 18 115/71 (86) 98 I&O Intake and Output 02/03/20 02/04/20 19:00 07:00 Intake Total 15 ml 50 ml Output Total 600 ml 400 ml Balance -585 ml -350 ml Intake Oral 15 ml IV Total 50 ml Output Urine Total 600 ml 400 ml # Bowel Movements 1 1 Dressing: dry Wound: clean Cardiovascular: RSR Respiratory: clear, decreased breath sounds Abdomen: soft, non-tender, present bowel sounds Extremities: no cyanosis Laboratory Tests Test 02/03/20 17:00 02/04/20 06:15 Stool Occult Blood Pending White Blood Count 6.6 K/UL (4.8-10.8) Red Blood Count 4.60 M/UL (4.20-5.40) Hemoglobin 14.0 G/DL (12.0-16.0) Hematocrit 41.3 % (37.0-47.0) Mean Corpuscular Volume 90 FL (80-99) Mean Corpuscular Hemoglobin 30.4 PG (27.0-31.0) Mean Corpuscular Hemoglobin Concent 33.8 G/DL (32.0-36.0) Red Cell Distribution Width 11.4 % (11.6-14.8) L Platelet Count 212 K/UL (150-450) Mean Platelet Volume 7.0 FL (6.5-10.1) Neutrophils (%) (Auto) 49.1 % (45.0-75.0) Lymphocytes (%) (Auto) 34.4 % (20.0-45.0) Monocytes (%) (Auto) 7.2 % (1.0-10.0) Eosinophils (%) (Auto) 8.3 % (0.0-3.0) H Basophils (%) (Auto) 1.1 % (0.0-2.0) Sodium Level 145 MMOL/L (136-145) Potassium Level 3.8 MMOL/L (3.5-5.1) Chloride Level 109 MMOL/L (98-107) H Carbon Dioxide Level 30 MMOL/L (21-32) Anion Gap 7 mmol/L (5-15) Blood Urea Nitrogen 10 mg/dL (7-18) Creatinine 0.4 MG/DL (0.55-1.30) L Estimat Glomerular Filtration Rate > 60 mL/min (>60) Glucose Level 83 MG/DL (74-106) Calcium Level 9.6 MG/DL (8.5-10.1) Phosphorus Level 3.5 MG/DL (2.5-4.9) Magnesium Level 2.3 MG/DL (1.8-2.4) Iron Level 43 ug/dL (50-175) L Total Iron Binding Capacity 156 ug/dL (250-450) L Percent Iron Saturation 28 % (15-50) Unsaturated Iron Binding 113 ug/dL (112-346) Ferritin 332 NG/ML (8-388) Total Bilirubin 0.3 MG/DL (0.2-1.0) Aspartate Amino Transf (AST/SGOT) 29 U/L (15-37) Alanine Aminotransferase (ALT/SGPT) 79 U/L (12-78) H Alkaline Phosphatase 97 U/L (46-116) Total Protein 6.9 G/DL (6.4-8.2) Albumin 3.2 G/DL (3.4-5.0) L Globulin 3.7 g/dL Albumin/Globulin Ratio 0.9 (1.0-2.7) L Carcinoembryonic Antigen Pending Vitamin B12 Level 443 PG/ML (193-986) Folate 16.5 NG/ML (8.6-58.9) Plan Problems: (1) Decubitus skin ulcer Assessment & Plan: Patient presented on admission with large sacral deep tissue injury unstageable decubitus ulcer. Noted to have 2 areas of epidermal breakdown with underlying tissue was purple and pink somewhat blanchable in certain areas. No signs of active infection noted mild discomfort reported with palpation No underlying fluctuance identified Seemingly newly formed and will need to be monitored closely for further breakdown. Treatment plan Wash sacral decubitus ulcer daily with normal saline. Apply skin protectant and foam dressing. Will need to monitor closely for further breakdown. Unable to stage exact course of disease at this time given the deep tissue injury along with unstageable area of breakdown. Turn every 2 hours Offload pressure and heels with pillow Heel protectors Nutritional optimization patient's BMI and albumin low. Nutritional input appreciated Air mattress We will follow with recommendations thank you (2) Sepsis Assessment & Plan: Gallbladder is unremarkable, without stones, wall thickening , nor pericholecystic fluid. Sonographic Vallecillo's sign is negative. Common bile duct measures 7 mm in diameter. No intrahepatic biliary ductal dilatation. Liver demonstrates normal echogenicity, no focal abnormality. Portal vein and hepatic veins are patent. Pancreas is unremarkable. Spleen is unremarkable. Left kidney measures 11.6 cm in length. Right kidney measures 9.9 cm length. Both kidneys demonstrate normal echogenicity. There is no hydronephrosis. No focal abnormality . Abdominal aorta is partially obscured by bowel gas, visualized portions are non-aneurysmal . Impression: Mildly ectatic common bile duct, may be age-related but downstream obstruction not completely excludable. Correlate with liver function tests, consider MRCP for further evaluation if clinically indicated Negative for gallstones or other significant abnormality. Note nonvisualization of the distal abdominal aorta likely UTI no abd pathology decubitus not infected (3) UTI (urinary tract infection) Assessment & Plan: on abx as per ID (4) Acute metabolic encephalopathy (5) Dehydration (6) Hypernatremia (7) Severe protein-calorie malnutrition Assessment & Plan: DAILY ESTIMATED NEEDS: Needs based on Wound 60kg abw 25-30 kcals/kg [id number] total kcals 1.25-1.5 g protein/kg 75-90 g total protein 25-30 mL/kg [id number] total fluid mLs NUTRITION DIAGNOSIS: Increased pro needs r/t wound healing as evidenced by sacral unstageable wound. CURRENT DIET:Regular puree PO DIET RECOMMENDATIONS: Maintain Regular liberalized diet w/ poor intake ADDITIONAL RECOMMENDATIONS: 1) Rec SPECIAL EDUCATION PROFESSIONAL eval for appropriate texture for improved acceptance 2) Add Ensure 1 bottle w/ meals 3) Wound care: Add BEATRIZ BID + Vit C 250mg BID F/up w/ WC eval 4) Maintain calibrated bed scale wts 5) Monitor BG, need for hypoglycemics Pavan Maddox Feb 04, 2020 16:10
--- NOTE | 2020-02-04 19:45 | NUR ---
HAND-OFF: Report given to marlee.
--- NOTE | 2020-02-04 19:50 | NUR ---
NURSE NOTES: Patient in bed, awake and nonverbal. On room air with no signs of distress or SOB. IV intact and patent. Hogan in place and draining well. Bed locked and in lowest position. Bed alarm on. Will continue to monitor.
[2020-02-04 20:00] VITALS: BP 109/79
--- NOTE | 2020-02-04 20:49 | Psych Consult Progress Note ---
Psychiatry Progress Note Psychiatry Progress Note Medications Current Medications Medications (Trade) Dose Ordered Sig/Tory Route PRN Reason Start Time Stop Time Status Last Admin Dose Admin Acetaminophen (Tylenol) 650 mg Q4H PRN ORAL For Pain 01/31/20 14:00 02/28/20 13:59 Amlodipine Besylate (Norvasc) 5 mg DAILY ORAL 02/01/20 09:00 02/29/20 08:59 02/04/20 09:58 Ascorbic Acid (Vitamin C) 250 mg TWICE A DAY ORAL 02/02/20 18:00 03/03/20 17:59 02/04/20 17:29 Dextrose (Dextrose 50%) 25 ml Q30M PRN IV Hypoglycemia 01/31/20 13:00 04/28/20 13:59 Dextrose (Dextrose 50%) 50 ml Q30M PRN IV Hypoglycemia 01/31/20 13:00 04/28/20 13:59 Fish Oil (Fish Oil) 1,000 mg BID ORAL 01/31/20 18:00 03/01/20 17:59 02/04/20 17:28 Folic Acid (Folate) 2 mg DAILY ORAL 02/01/20 09:00 03/01/20 08:59 02/04/20 09:57 Heparin Sodium (Porcine) (Heparin 5000 units/ml) 5,000 units EVERY 8 HOURS SUBQ 02/03/20 14:00 03/19/20 13:59 02/04/20 14:03 Lorazepam (Ativan 2mg/ml 1ml) 1 mg Q4H PRN IM For Anxiety 02/02/20 20:15 02/09/20 20:14 Megestrol Acetate (Megace) 400 mg TWICE A DAY ORAL 02/03/20 18:00 05/03/20 17:59 02/04/20 17:29 Meropenem 500 mg/ Sodium Chloride 50 ml @ 100 mls/hr EVERY 8 HOURS IVPB 01/31/20 22:00 02/05/20 21:59 02/04/20 14:00 Olanzapine (ZyPREXA Zydis) 10 mg BEDTIME ORAL 02/02/20 21:00 03/18/20 20:59 02/03/20 20:07 Ondansetron HCl (Zofran) 4 mg Q6H PRN IVP Nausea & Vomiting 01/31/20 13:00 02/28/20 12:59 Potassium Chloride (K-Dur) 40 meq DAILY ORAL 02/01/20 09:00 05/01/20 08:59 02/04/20 09:58 Allergies: Coded Allergies: No Known Allergies (Unverified , 01/29/20) Objective Data Height (Feet): 5 Height (Inches): 4.00 Weight (Pounds): 99 Lynda Owen MD Feb 04, 2020 20:49
[2020-02-04] MEDS: ZyPREXA Zydis 10mg tab ORAL SCH (21:54)
[2020-02-05] VITALS: BP 116/65
[2020-02-05 03:58] VITALS: BP 114/63
--- NOTE | 2020-02-05 06:39 | General Progress Note ---
Assessment/Plan Problem List: (1) Anemia ICD Codes: D64.9 - Anemia, unspecified SNOMED: 516968682 (2) FTT (failure to thrive) in adult ICD Codes: R62.7 - Adult failure to thrive SNOMED: 762376485 (3) Severe protein-calorie malnutrition ICD Codes: E43 - Unspecified severe protein-calorie malnutrition SNOMED: 602282313, 324384595, 679285482 (4) Hypernatremia ICD Codes: E87.0 - Hyperosmolality and hypernatremia SNOMED: 534568380 (5) Dehydration ICD Codes: E86.0 - Dehydration SNOMED: 02253018 (6) Acute metabolic encephalopathy ICD Codes: G93.41 - Metabolic encephalopathy SNOMED: 70402178, 664389570 (7) UTI (urinary tract infection) ICD Codes: N39.0 - Urinary tract infection, site not specified SNOMED: 33950510 Qualifiers: Qualified Codes: N39.0 - Urinary tract infection, site not specified (8) Sepsis ICD Codes: A41.9 - Sepsis, unspecified organism SNOMED: 03571919 Qualifiers: Qualified Codes: A41.9 - Sepsis, unspecified organism; R65.20 - Severe sepsis without septic shock; G93.40 - Encephalopathy, unspecified Assessment/Plan: anemia work up megace sub Q heparin pending social studies teacher consult for finding family plan PEG when consented Subjective ROS Limited/Unobtainable: No Allergies: Coded Allergies: No Known Allergies (Unverified , 01/29/20) Objective Last 24 Hour Vital Signs Date Time Temp Pulse Resp B/P (MAP) Pulse Ox O2 Delivery O2 Flow Rate FiO2 02/05/20 03:58 97.4 70 12 114/63 (80) 93 02/05/20 00:00 98.6 80 14 116/65 (82) 97 02/04/20 21:47 Room Air 02/04/20 20:00 98.9 110 12 109/79 (89) 94 02/04/20 16:00 97.9 73 17 106/61 (76) 99 02/04/20 12:00 98.2 80 18 124/58 (80) 98 02/04/20 09:58 101 131/80 02/04/20 08:00 98.0 101 20 131/80 (97) 91 Intake and Output 02/04/20 02/05/20 19:00 07:00 Intake Total 350 ml Output Total 550 ml 400 ml Balance -200 ml -400 ml Intake Oral 300 ml IV Total 50 ml Output Urine Total 550 ml 400 ml # Bowel Movements 1 Height (Feet): 5 Height (Inches): 4.00 Weight (Pounds): 99 General Appearance: lethargic EENT: normal ENT inspection Neck: supple Cardiovascular: normal rate Respiratory/Chest: decreased breath sounds Abdomen: normal bowel sounds, non tender, soft Extremities: non-tender Min Salazar MD Feb 05, 2020 06:39
[2020-02-05] MEDS: Heparin 5000 units/ml inj SUBQ SCH ×3 (06:46→21:16)
--- NOTE | 2020-02-05 07:33 | NUR ---
HAND-OFF: Report given to MIKE Nixon.
--- NOTE | 2020-02-05 07:43 | NUR ---
NURSE NOTES: Received patient in bed asleep. No SOB or acute distress. IV line intact. Hogan catheter intact. HOB elevated. Bed locked in lowest position. Call light within reach. Will continue plan of care.
[2020-02-05 08:00] VITALS: BP 118/66
[2020-02-05] MEDS: Ascorbic Acid 500mg tab ORAL SCH ×2 (09:30→16:57)
[2020-02-05] MEDS: Megace 400mg/10ml Susp ORAL SCH ×2 (09:31→16:58)
--- NOTE | 2020-02-05 11:45 | Pulmonology Progress Note ---
Assessment/Plan Assessment/Plan IMPRESSION: 1. UTI. esbl e coli 2. Severe hypernatremia. improved 3. Rule out COVID-19. Negative x 1 4. [facility] resident. 5. Hypertension. DISCUSSION: Will continue oxygen p.r.n. Continue broad-spectrum antibiotics I will follow carefully. Subjective Interval Events: None new Constitutional: Reports: no symptoms HEENT: Repors: no symptoms Respiratory: Reports: no symptoms Cardiovascular: Reports: no symptoms Gastrointestinal/Abdominal: Reports: no symptoms Allergies: Coded Allergies: No Known Allergies (Unverified , 01/29/20) Objective Last 24 Hour Vital Signs Date Time Temp Pulse Resp B/P (MAP) Pulse Ox O2 Delivery O2 Flow Rate FiO2 02/05/20 09:30 73 118/66 02/05/20 08:00 97.6 73 14 118/66 (83) 95 02/05/20 03:58 97.4 70 12 114/63 (80) 93 02/05/20 00:00 98.6 80 14 116/65 (82) 97 02/04/20 21:47 Room Air 02/04/20 20:00 98.9 110 12 109/79 (89) 94 02/04/20 16:00 97.9 73 17 106/61 (76) 99 02/04/20 12:00 98.2 80 18 124/58 (80) 98 Intake and Output 02/04/20 02/05/20 19:00 07:00 Intake Total 350 ml Output Total 550 ml 400 ml Balance -200 ml -400 ml Intake Oral 300 ml IV Total 50 ml Output Urine Total 550 ml 400 ml # Bowel Movements 1 General Appearance: no acute distress HEENT: normocephalic Respiratory/Chest: chest wall non-tender Cardiovascular: normal peripheral pulses Abdomen: normal bowel sounds Current Medications Medications (Trade) Dose Ordered Sig/Tory Route PRN Reason Start Time Stop Time Status Last Admin Dose Admin Acetaminophen (Tylenol) 650 mg Q4H PRN ORAL For Pain 01/31/20 14:00 02/28/20 13:59 Amlodipine Besylate (Norvasc) 5 mg DAILY ORAL 02/01/20 09:00 02/29/20 08:59 02/05/20 09:30 Ascorbic Acid (Vitamin C) 250 mg TWICE A DAY ORAL 02/02/20 18:00 03/03/20 17:59 02/05/20 09:30 Dextrose (Dextrose 50%) 25 ml Q30M PRN IV Hypoglycemia 01/31/20 13:00 04/28/20 13:59 Dextrose (Dextrose 50%) 50 ml Q30M PRN IV Hypoglycemia 01/31/20 13:00 04/28/20 13:59 Fish Oil (Fish Oil) 1,000 mg BID ORAL 01/31/20 18:00 03/01/20 17:59 02/05/20 09:30 Folic Acid (Folate) 2 mg DAILY ORAL 02/01/20 09:00 03/01/20 08:59 02/05/20 09:30 Heparin Sodium (Porcine) (Heparin 5000 units/ml) 5,000 units EVERY 8 HOURS SUBQ 02/03/20 14:00 03/19/20 13:59 02/05/20 06:46 Lorazepam (Ativan 2mg/ml 1ml) 1 mg Q4H PRN IM For Anxiety 02/02/20 20:15 02/09/20 20:14 Megestrol Acetate (Megace) 400 mg TWICE A DAY ORAL 02/03/20 18:00 05/03/20 17:59 02/05/20 09:31 Meropenem 500 mg/ Sodium Chloride 50 ml @ 100 mls/hr EVERY 8 HOURS IVPB 01/31/20 22:00 02/05/20 21:59 02/05/20 05:31 Olanzapine (ZyPREXA Zydis) 10 mg BEDTIME ORAL 02/02/20 21:00 03/18/20 20:59 02/04/20 21:54 Ondansetron HCl (Zofran) 4 mg Q6H PRN IVP Nausea & Vomiting 01/31/20 13:00 02/28/20 12:59 Potassium Chloride (K-Dur) 40 meq DAILY ORAL 02/01/20 09:00 05/01/20 08:59 02/05/20 09:30 Tip Moreno MD Feb 05, 2020 11:45
--- NOTE | 2020-02-05 11:53 | Nephrology Progress Note ---
Assessment/Plan Problem List: (1) Hypernatremia (2) Dehydration (3) UTI (urinary tract infection) (4) Acute metabolic encephalopathy (5) Sepsis Assessment Renal impression: Patient has hypernatremia which is indicative of free water depletion, meanwhile elevated hemoglobin indicative of hemoconcentration due to dehydration Other significant conditions: Sepsis/UTI COVID exposure, pending rule out Toxic metabolic encephalopathy UTI History of hypertension Plan Poor p.o. intake GT is a consideration, and I believe it is urgently needed since the patient is very malnourished Suggestions: Discontinue D5W as serum sodium normalized Folic acid p.o. Fish oil for high triglycerides Monitor serum sodium and renal parameters Antibiotics Keep the blood pressure in check Per consultants Remains stable from renal standpoint to view Subjective ROS Limited/Unobtainable: No Constitutional: Reports: malaise Objective Objective Last 24 Hour Vital Signs Date Time Temp Pulse Resp B/P (MAP) Pulse Ox O2 Delivery O2 Flow Rate FiO2 02/05/20 09:30 73 118/66 02/05/20 08:00 97.6 73 14 118/66 (83) 95 02/05/20 03:58 97.4 70 12 114/63 (80) 93 02/05/20 00:00 98.6 80 14 116/65 (82) 97 02/04/20 21:47 Room Air 02/04/20 20:00 98.9 110 12 109/79 (89) 94 02/04/20 16:00 97.9 73 17 106/61 (76) 99 02/04/20 12:00 98.2 80 18 124/58 (80) 98 Intake and Output 02/04/20 02/05/20 19:00 07:00 Intake Total 350 ml Output Total 550 ml 400 ml Balance -200 ml -400 ml Intake Oral 300 ml IV Total 50 ml Output Urine Total 550 ml 400 ml # Bowel Movements 1 Height (Feet): 5 Height (Inches): 4.00 Weight (Pounds): 99 General Appearance: no apparent distress Objective No change Shawn Ferguson MD Feb 05, 2020 11:53
--- NOTE | 2020-02-05 11:59 | General Progress Note ---
Assessment/Plan Assessment/Plan: 64-year-old female from [facility] w/H encephalopathy, UTI, anemia, atherosclerosis of aorta who presents with acute altered mentation, fevers and failure to thrive. Pt found to be septic, temperature 100.9, HR 120, RR 24, sepsis bolus was given in the ED, Vanc, Zosyn, gentamicin were given. #Acute Toxic Metabolic Encephalopathy 2/2 #Severe Sepsis, POA #UTI -Cont. inpatient medical care, cardiac monitoring -COVID NEGATIVE -Flu A/B negative -BCx growing Staph epi -UCx E. coli -s/p 7 days of meropenem -Pulm and ID following #Hypernatremia, resolved #Dehydration #elevated Hgb/Hct - likely 2/2 hemoconcentration -likely 2/2 dehydration -S/p D5W -monitor BMP -Renal following #Sinus Tachycardia - resolved -Likely multifactorial, 2/2 sepsis/dehydration -seen on EKG sinus tachycardia, HR 137, non-specific ST abnormalities -trop 0.011, 0.028 -CXR negative for acute process -BNP 288 -improved with volume expansion -cont. to monitor #Transaminitis -likely 2/2 sepsis -Abd US equivocal -Hepatitis panel negative -cont. to monitor LFTs, will consider GI eval #Severe protein calorie malnutrition #Physical Deconditioning -Dietitian and PEDIATRIC CRITICAL CARE NURSE eval -GI consulted for PEG, patient has no family to given consent. Will require 2 physician consent, discussed with Dr. Ferguson who agrees that patient needs feeding tube placement due to severe malnutrition. -PT/OT -poultry husbandry worker to call NH if pt has any family DVT PPx: lovenox Time spent on encounter: 35 mins, >50% on coordination of care. Subjective Allergies: Coded Allergies: No Known Allergies (Unverified , 01/29/20) Subjective f/u for sepsis/acute metabolic encephalopathy, UTI. Pt awake, comfortable Objective Last 24 Hour Vital Signs Date Time Temp Pulse Resp B/P (MAP) Pulse Ox O2 Delivery O2 Flow Rate FiO2 02/05/20 09:30 73 118/66 02/05/20 08:00 97.6 73 14 118/66 (83) 95 02/05/20 03:58 97.4 70 12 114/63 (80) 93 02/05/20 00:00 98.6 80 14 116/65 (82) 97 02/04/20 21:47 Room Air 02/04/20 20:00 98.9 110 12 109/79 (89) 94 02/04/20 16:00 97.9 73 17 106/61 (76) 99 02/04/20 12:00 98.2 80 18 124/58 (80) 98 Intake and Output 02/04/20 02/05/20 19:00 07:00 Intake Total 350 ml Output Total 550 ml 400 ml Balance -200 ml -400 ml Intake Oral 300 ml IV Total 50 ml Output Urine Total 550 ml 400 ml # Bowel Movements 1 Height (Feet): 5 Height (Inches): 4.00 Weight (Pounds): 99 Objective General: NAD, awake, alert, sitting up in bed, A&O x 1 at b/l, aphasic HEENT: NCAT, EOMi, MMM CV: RRR, no murmurs, rubs, or gallops Pulm: CTAB, No wheezes, rhonchi, or rales, no accessory muscle usage GI: Soft, nontender, nondistended, bowel sounds present Ext: No lower extremity edema bilaterally Linsey Ramirez M.D. Feb 05, 2020 11:59
[2020-02-05 12:00] VITALS: BP 102/64
[2020-02-05 15:58] VITALS: BP 110/66
--- NOTE | 2020-02-05 17:09 | NUR ---
NURSE NOTES: Patient noted with aggressive behavior, pinching RHINESTONE SETTER and slapping RN's hand.
--- NOTE | 2020-02-05 19:04 | Consultation ---
History of Present Illness General Date patient seen: Feb 05, 2020 Chief Complaint: Altered Mental Status Reason for Consultation: ams Present Illness HPI 64-year-old female from [facility] w/H encephalopathy, UTI, anemia, atherosclerosis of aorta who presents with acute altered mentation, fevers and failure to thrive. Pt found to be septic, temperature 100.9, HR 120, RR 24, sepsis bolus was given in the ED, Vanc, Zosyn, gentamicin were given. COVID NEGATIVE Allergies: Coded Allergies: No Known Allergies (Unverified , 01/29/20) Medication History Scheduled Amlodipine Besylate* (Amlodipine Besylate*), 5 MG ORAL DAILY, (Reported) Enoxaparin* (Lovenox*), 40 MG SUBQ DAILY, (Reported) Scheduled PRN Acetaminophen* (Acetaminophen 325MG Tablet*), 650 MG ORAL Q4H PRN for For Pain, (Reported) Miscellaneous Medications Megestrol Acetate (Megestrol Acetate), 40 MG PO, (Reported) Patient History Healthcare decision maker none recorded Resuscitation status Advanced Directive on File No Physical Exam General Appearance: no apparent distress HEENT: atraumatic Neck: non-tender Physical Exam Narrative somnolent wakes up and tracks moves all 4 cc 35 min Last 24 Hour Vital Signs Date Time Temp Pulse Resp B/P (MAP) Pulse Ox O2 Delivery O2 Flow Rate FiO2 02/05/20 15:58 97.3 71 17 110/66 (81) 98 02/05/20 12:00 97.0 68 16 102/64 (77) 98 02/05/20 09:30 73 118/66 02/05/20 08:00 97.6 73 14 118/66 (83) 95 02/05/20 03:58 97.4 70 12 114/63 (80) 93 02/05/20 00:00 98.6 80 14 116/65 (82) 97 02/04/20 21:47 Room Air 02/04/20 20:00 98.9 110 12 109/79 (89) 94 Intake and Output 02/04/20 02/05/20 19:00 07:00 Intake Total 350 ml Output Total 550 ml 400 ml Balance -200 ml -400 ml Intake Oral 300 ml IV Total 50 ml Output Urine Total 550 ml 400 ml # Bowel Movements 1 Height (Feet): 5 Height (Inches): 4.00 Weight (Pounds): 99 Medications Current Medications Medications (Trade) Dose Ordered Sig/Tory Route PRN Reason Start Time Stop Time Status Last Admin Dose Admin Acetaminophen (Tylenol) 650 mg Q4H PRN ORAL For Pain 01/31/20 14:00 02/28/20 13:59 Amlodipine Besylate (Norvasc) 5 mg DAILY ORAL 02/01/20 09:00 02/29/20 08:59 02/05/20 09:30 Ascorbic Acid (Vitamin C) 250 mg TWICE A DAY ORAL 02/02/20 18:00 03/03/20 17:59 02/05/20 16:57 Dextrose (Dextrose 50%) 25 ml Q30M PRN IV Hypoglycemia 01/31/20 13:00 04/28/20 13:59 Dextrose (Dextrose 50%) 50 ml Q30M PRN IV Hypoglycemia 01/31/20 13:00 04/28/20 13:59 Fish Oil (Fish Oil) 1,000 mg BID ORAL 01/31/20 18:00 03/01/20 17:59 02/05/20 16:58 Folic Acid (Folate) 2 mg DAILY ORAL 02/01/20 09:00 03/01/20 08:59 02/05/20 09:30 Heparin Sodium (Porcine) (Heparin 5000 units/ml) 5,000 units EVERY 8 HOURS SUBQ 02/03/20 14:00 03/19/20 13:59 02/05/20 13:48 Lorazepam (Ativan 2mg/ml 1ml) 1 mg Q4H PRN IM For Anxiety 02/02/20 20:15 02/09/20 20:14 Megestrol Acetate (Megace) 400 mg TWICE A DAY ORAL 02/03/20 18:00 05/03/20 17:59 02/05/20 16:58 Meropenem 500 mg/ Sodium Chloride 50 ml @ 100 mls/hr EVERY 8 HOURS IVPB 01/31/20 22:00 02/05/20 21:59 02/05/20 13:47 Olanzapine (ZyPREXA Zydis) 10 mg BEDTIME ORAL 02/02/20 21:00 03/18/20 20:59 02/04/20 21:54 Ondansetron HCl (Zofran) 4 mg Q6H PRN IVP Nausea & Vomiting 01/31/20 13:00 02/28/20 12:59 Potassium Chloride (K-Dur) 40 meq DAILY ORAL 02/01/20 09:00 05/01/20 08:59 02/05/20 09:30 Assessment/Plan Problem List: (1) Decubitus skin ulcer ICD Codes: L89.90 - Pressure ulcer of unspecified site, unspecified stage SNOMED: 434871860 (2) Anemia ICD Codes: D64.9 - Anemia, unspecified SNOMED: 091985186 (3) FTT (failure to thrive) in adult ICD Codes: R62.7 - Adult failure to thrive SNOMED: 394362921 (4) Sepsis ICD Codes: A41.9 - Sepsis, unspecified organism SNOMED: 56498051 Qualifiers: Qualified Codes: A41.9 - Sepsis, unspecified organism; R65.20 - Severe sepsis without septic shock; G93.40 - Encephalopathy, unspecified (5) UTI (urinary tract infection) ICD Codes: N39.0 - Urinary tract infection, site not specified SNOMED: 83245040 Qualifiers: Qualified Codes: N39.0 - Urinary tract infection, site not specified (6) Acute metabolic encephalopathy ICD Codes: G93.41 - Metabolic encephalopathy SNOMED: 24829542, 955702210 (7) Dehydration ICD Codes: E86.0 - Dehydration SNOMED: 53733918 (8) Hypernatremia ICD Codes: E87.0 - Hyperosmolality and hypernatremia SNOMED: 085318962 (9) Severe protein-calorie malnutrition ICD Codes: E43 - Unspecified severe protein-calorie malnutrition SNOMED: 669371781, 488856705, 121045429 Assessment/Plan: 64-year-old female from [facility] w/[facility] encephalopathy, UTI, anemia, atherosclerosis of aorta who presents with acute altered mentation, fevers and failure to thrive. Pt found to be septic, temperature 100.9, HR 120, RR 24, sepsis bolus was given in the ED, Vanc, Zosyn, gentamicin were given. cute Toxic Metabolic Encephalopathy 2/2 Severe Sepsis, POA UTI COnt atb PT OT Gucci Weber MD Feb 05, 2020 19:04
--- NOTE | 2020-02-05 19:38 | Surgery Progress Note ---
Surgery Progress Note Subjective Additional Comments no acute events stable comfortable Objective Last 24 Hour Vital Signs Date Time Temp Pulse Resp B/P (MAP) Pulse Ox O2 Delivery O2 Flow Rate FiO2 02/05/20 15:58 97.3 71 17 110/66 (81) 98 02/05/20 12:00 97.0 68 16 102/64 (77) 98 02/05/20 09:30 73 118/66 02/05/20 08:00 97.6 73 14 118/66 (83) 95 02/05/20 03:58 97.4 70 12 114/63 (80) 93 02/05/20 00:00 98.6 80 14 116/65 (82) 97 02/04/20 21:47 Room Air 02/04/20 20:00 98.9 110 12 109/79 (89) 94 I&O Intake and Output 02/04/20 02/05/20 19:00 07:00 Intake Total 350 ml Output Total 550 ml 400 ml Balance -200 ml -400 ml Intake Oral 300 ml IV Total 50 ml Output Urine Total 550 ml 400 ml # Bowel Movements 1 Dressing: dry Wound: clean Cardiovascular: RSR Respiratory: clear Abdomen: soft, non-tender, present bowel sounds Extremities: no tenderness, no cyanosis Plan Problems: (1) Decubitus skin ulcer Assessment & Plan: Patient presented on admission with large sacral deep tissue injury unstageable decubitus ulcer. Noted to have 2 areas of epidermal breakdown with underlying tissue was purple and pink somewhat blanchable in certain areas. No signs of active infection noted mild discomfort reported with palpation No underlying fluctuance identified Seemingly newly formed and will need to be monitored closely for further breakdown. Treatment plan Wash sacral decubitus ulcer daily with normal saline. Apply skin protectant and foam dressing. Will need to monitor closely for further breakdown. Unable to stage exact course of disease at this time given the deep tissue injury along with unstageable area of breakdown. Turn every 2 hours Offload pressure and heels with pillow Heel protectors Nutritional optimization patient's BMI and albumin low. Nutritional input appreciated Air mattress We will follow with recommendations thank you (2) Sepsis Assessment & Plan: Gallbladder is unremarkable, without stones, wall thickening , nor pericholecystic fluid. Sonographic Vallecillo's sign is negative. Common bile duct measures 7 mm in diameter. No intrahepatic biliary ductal dilatation. Liver demonstrates normal echogenicity, no focal abnormality. Portal vein and hepatic veins are patent. Pancreas is unremarkable. Spleen is unremarkable. Left kidney measures 11.6 cm in length. Right kidney measures 9.9 cm length. Both kidneys demonstrate normal echogenicity. There is no hydronephrosis. No focal abnormality . Abdominal aorta is partially obscured by bowel gas, visualized portions are non-aneurysmal . Impression: Mildly ectatic common bile duct, may be age-related but downstream obstruction not completely excludable. Correlate with liver function tests, consider MRCP for further evaluation if clinically indicated Negative for gallstones or other significant abnormality. Note nonvisualization of the distal abdominal aorta likely UTI no abd pathology decubitus not infected (3) UTI (urinary tract infection) Assessment & Plan: on abx as per ID (4) Acute metabolic encephalopathy (5) Dehydration (6) Hypernatremia (7) Severe protein-calorie malnutrition Assessment & Plan: DAILY ESTIMATED NEEDS: Needs based on Wound 60kg abw 25-30 kcals/kg 4339-8612 total kcals 1.25-1.5 g protein/kg 75-90 g total protein 25-30 mL/kg 1817-3967 total fluid mLs NUTRITION DIAGNOSIS: Increased pro needs r/t wound healing as evidenced by sacral unstageable wound. 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
--- NOTE | 2020-02-05 19:53 | NUR ---
HAND-OFF: Report given to suellen.
[2020-02-05 20:00] VITALS: BP 113/65
[2020-02-05] MEDS: ZyPREXA Zydis 10mg tab ORAL SCH (21:08)
--- NOTE | 2020-02-05 23:41 | Psych Consult Progress Note ---
Psychiatry Progress Note Psychiatry Progress Note Medications Current Medications Medications (Trade) Dose Ordered Sig/Tory Route PRN Reason Start Time Stop Time Status Last Admin Dose Admin Acetaminophen (Tylenol) 650 mg Q4H PRN ORAL For Pain 01/31/20 14:00 02/28/20 13:59 Amlodipine Besylate (Norvasc) 5 mg DAILY ORAL 02/01/20 09:00 02/29/20 08:59 02/05/20 09:30 Ascorbic Acid (Vitamin C) 250 mg TWICE A DAY ORAL 02/02/20 18:00 03/03/20 17:59 02/05/20 16:57 Dextrose (Dextrose 50%) 25 ml Q30M PRN IV Hypoglycemia 01/31/20 13:00 04/28/20 13:59 Dextrose (Dextrose 50%) 50 ml Q30M PRN IV Hypoglycemia 01/31/20 13:00 04/28/20 13:59 Fish Oil (Fish Oil) 1,000 mg BID ORAL 01/31/20 18:00 03/01/20 17:59 02/05/20 16:58 Folic Acid (Folate) 2 mg DAILY ORAL 02/01/20 09:00 03/01/20 08:59 02/05/20 09:30 Heparin Sodium (Porcine) (Heparin 5000 units/ml) 5,000 units EVERY 8 HOURS SUBQ 02/03/20 14:00 03/19/20 13:59 02/05/20 21:16 Lorazepam (Ativan 2mg/ml 1ml) 1 mg Q4H PRN IM For Anxiety 02/02/20 20:15 02/09/20 20:14 Megestrol Acetate (Megace) 400 mg TWICE A DAY ORAL 02/03/20 18:00 05/03/20 17:59 02/05/20 16:58 Olanzapine (ZyPREXA Zydis) 10 mg BEDTIME ORAL 02/02/20 21:00 03/18/20 20:59 02/05/20 21:08 Ondansetron HCl (Zofran) 4 mg Q6H PRN IVP Nausea & Vomiting 01/31/20 13:00 02/28/20 12:59 Potassium Chloride (K-Dur) 40 meq DAILY ORAL 02/01/20 09:00 05/01/20 08:59 02/05/20 09:30 Allergies: Coded Allergies: No Known Allergies (Unverified , 01/29/20) Objective Data Height (Feet): 5 Height (Inches): 4.00 Weight (Pounds): 99 General Appearance: no apparent distress, alert, confused Additional Comments: alert, disoriented, minimally verbal. Mood is dysphoric. Affect is constricted, congruent with mood. Thought process is concrete. Thought content, no suicidal or homicidal ideation. Cognition is impaired. Insight and judgment is impaired. Assessment/Plan [place]: ASSESSMENT: 1. Failure to thrive. 2. Psychotic disorder. Assessment/Plan: zyprexa 10mg po [facility]/Lynda Desir MD Feb 05, 2020 23:41
[2020-02-06] VITALS: BP 128/72
[2020-02-06 04:00] VITALS: BP 107/57
[2020-02-06] MEDS: Heparin 5000 units/ml inj SUBQ SCH ×3 (05:54→21:20)
--- NOTE | 2020-02-06 06:53 | General Progress Note ---
Assessment/Plan Problem List: (1) Anemia ICD Codes: D64.9 - Anemia, unspecified SNOMED: 174874129 (2) FTT (failure to thrive) in adult ICD Codes: R62.7 - Adult failure to thrive SNOMED: 910989156 (3) Severe protein-calorie malnutrition ICD Codes: E43 - Unspecified severe protein-calorie malnutrition SNOMED: 876653713, 638639933, 821609869 (4) Hypernatremia ICD Codes: E87.0 - Hyperosmolality and hypernatremia SNOMED: 101248111 (5) Dehydration ICD Codes: E86.0 - Dehydration SNOMED: 61138195 (6) Acute metabolic encephalopathy ICD Codes: G93.41 - Metabolic encephalopathy SNOMED: 20267687, 509595713 (7) UTI (urinary tract infection) ICD Codes: N39.0 - Urinary tract infection, site not specified SNOMED: 61294871 Qualifiers: Qualified Codes: N39.0 - Urinary tract infection, site not specified (8) Sepsis ICD Codes: A41.9 - Sepsis, unspecified organism SNOMED: 81491322 Qualifiers: Qualified Codes: A41.9 - Sepsis, unspecified organism; R65.20 - Severe sepsis without septic shock; G93.40 - Encephalopathy, unspecified Assessment/Plan: anemia work up megace sub Q heparin pending social secretary consult for finding family ordered Bioethic consult plan PEG when consented Subjective ROS Limited/Unobtainable: No Allergies: Coded Allergies: No Known Allergies (Unverified , 01/29/20) Objective Last 24 Hour Vital Signs Date Time Temp Pulse Resp B/P (MAP) Pulse Ox O2 Delivery O2 Flow Rate FiO2 02/06/20 04:00 97.2 99 16 107/57 (74) 93 02/06/20 00:00 98.1 114 18 128/72 (90) 98 02/05/20 21:47 Room Air 02/05/20 20:00 98.1 107 12 113/65 (81) 99 02/05/20 15:58 97.3 71 17 110/66 (81) 98 02/05/20 12:00 97.0 68 16 102/64 (77) 98 02/05/20 09:30 73 118/66 02/05/20 08:00 97.6 73 14 118/66 (83 95 Intake and Output 02/05/20 02/06/20 19:00 07:00 Output Total 600 ml 800 ml Balance -600 ml -800 ml Output Urine Total 600 ml 800 ml Height (Feet): 5 Height (Inches): 4.00 Weight (Pounds): 99 General Appearance: lethargic EENT: normal ENT inspection Neck: supple Cardiovascular: normal rate Respiratory/Chest: decreased breath sounds Abdomen: normal bowel sounds, non tender, soft Extremities: non-tender Min Salazar MD Feb 06, 2020 06:53
[2020-02-06 07:41] LABS: EOSINOPHILS % (AUTO) 9.1 % (0.0-3.0); HEMATOCRIT 42.9 % (37.0-47.0); HEMOGLOBIN 14.9 G/DL (12.0-16.0); LYMPHOCYTES % (AUTO) 42.6 % (20.0-45.0); MEAN CORPUSCULAR VOLUME 89 FL (80-99); MONOCYTES % (AUTO) 7.6 % (1.0-10.0); NEUTROPHILS % (AUTO) 39.6 % (45.0-75.0); PLATELET COUNT 271 K/UL (150-450); RED BLOOD COUNT 4.81 M/UL (4.20-5.40); RED CELL DISTRIBUTION WIDTH 12.1 % (11.6-14.8); WHITE BLOOD COUNT 6.7 K/UL (4.8-10.8)
--- NOTE | 2020-02-06 07:41 | NUR ---
HAND-OFF: Report given to MIKE Antoine.
--- NOTE | 2020-02-06 07:53 | NUR ---
NURSE NOTES: Patient awake, confused, combative, Cymro speaking;on room air, no sing of distress and shortness of breath; no sing of chest pain; Hogan in place, drains yellow urine; wound dressings dry and intact; IV Right For-Arm TKO; side rails up x2, breaks engaged, bed at lowest position, bed alarm on; call light within reach; will keep monitoring.
[2020-02-06 07:56] LABS: INR 0.9 (0.9-1.1)
[2020-02-06 08:00] VITALS: BP 125/60
[2020-02-06 08:17] LABS: ALANINE AMINOTRANSFERASE 64 U/L (12-78); ALBUMIN 3.8 G/DL (3.4-5.0); ALBUMIN/GLOBULIN RATIO 0.9 (1.0-2.7); ALKALINE PHOSPHATASE 97 U/L (46-116); ANION GAP 13 mmol/L (5-15); ASPARTATE AMINO TRANSFERASE 22 U/L (15-37); BILIRUBIN,TOTAL 0.4 MG/DL (0.2-1.0); BLOOD UREA NITROGEN 14 mg/dL (7-18); CARBON DIOXIDE 24 MMOL/L (21-32); CHLORIDE 103 MMOL/L (98-107); CREATININE 0.4 MG/DL (0.55-1.30); POTASSIUM 4.7 MMOL/L (3.5-5.1); SODIUM 140 MMOL/L (136-145)
[2020-02-06] MEDS: Megace 400mg/10ml Susp ORAL SCH ×2 (09:00→17:23)
[2020-02-06] MEDS: Ascorbic Acid 500mg tab ORAL SCH ×2 (09:01→17:23)
--- NOTE | 2020-02-06 10:03 | General Progress Note ---
Assessment/Plan Assessment/Plan: 64-year-old female from [facility] w/H encephalopathy, UTI, anemia, atherosclerosis of aorta who presents with acute altered mentation, fevers and failure to thrive. Pt found to be septic, temperature 100.9, HR 120, RR 24, sepsis bolus was given in the ED, Vanc, Zosyn, gentamicin were given. #Acute Toxic Metabolic Encephalopathy 2/2 #Severe Sepsis, POA #UTI -Cont. inpatient medical care, cardiac monitoring -COVID NEGATIVE, Flu A/B negative -BCx growing Staph epi -UCx E. coli -s/p 7 days of meropenem -Pulm and ID following #Hypernatremia, resolved #Dehydration #elevated Hgb/Hct - likely 2/2 hemoconcentration -likely 2/2 dehydration -S/p D5W -monitor BMP -Renal following #Sinus Tachycardia - resolved -Likely multifactorial, 2/2 sepsis/dehydration -seen on EKG sinus tachycardia, HR 137, non-specific ST abnormalities -trop 0.011, 0.028 -CXR negative for acute process -BNP 288 -improved with volume expansion -cont. to monitor #Transaminitis -likely 2/2 sepsis -Abd US equivocal -Hepatitis panel negative -cont. to monitor LFTs, will consider GI eval #Severe protein calorie malnutrition #Physical Deconditioning -Dietitian and ESTHETICIAN eval -GI consulted for PEG, patient has no family to given consent. Will require 2 physician consent, discussed with Dr. Ferguson who agrees that patient needs feeding tube placement due to severe malnutrition. -PT/OT -bioethics committee consulted -G-tube placement pending bioethics committee DVT PPx: lovenox Time spent on encounter: 35 mins, >50% on coordination of care. Subjective Allergies: Coded Allergies: No Known Allergies (Unverified , 01/29/20) Subjective f/u for sepsis/acute metabolic encephalopathy, UTI, pending bioethics committee for g-tube placement. Pt awake, comfortable Objective Last 24 Hour Vital Signs Date Time Temp Pulse Resp B/P (MAP) Pulse Ox O2 Delivery O2 Flow Rate FiO2 02/06/20 09:01 73 125/60 02/06/20 08:00 97.3 73 18 125/60 (81) 98 02/06/20 04:00 97.2 99 16 107/57 (74) 93 4/12/20 00:00 98.1 114 18 128/72 (90) 98 02/05/20 21:47 Room Air 02/05/20 20:00 98.1 107 12 113/65 (81) 99 02/05/20 15:58 97.3 71 17 110/66 (81) 98 02/05/20 12:00 97.0 68 16 102/64 (77) 98 Intake and Output 02/05/20 02/06/20 19:00 07:00 Output Total 600 ml 800 ml Balance -600 ml -800 ml Output Urine Total 600 ml 800 ml Laboratory Tests 02/06/20 05:45: White Blood Count 6.7, Red Blood Count 4.81, Hemoglobin 14.9, Hematocrit 42.9, Mean Corpuscular Volume 89, Mean Corpuscular Hemoglobin 31.0, Mean Corpuscular Hemoglobin Concent 34.8, Red Cell Distribution Width 12.1, Platelet Count 271, Mean Platelet Volume 6.0L, Neutrophils (%) (Auto) 39.6L, Lymphocytes (%) (Auto) 42.6, Monocytes (%) (Auto) 7.6, Eosinophils (%) (Auto) 9.1H, Basophils (%) (Auto ) 1.0, Prothrombin Time 10.1, Prothromb Time International Ratio 0.9, Activated Partial Thromboplast Time 29, Sodium Level 140, Potassium Level 4.7, Chloride Level 103, Carbon Dioxide Level 24, Anion Gap 13, Blood Urea Nitrogen 14, Creatinine 0.4L, Estimat Glomerular Filtration Rate > 60, Glucose Level 68L, Calcium Level 10.0, Phosphorus Level 4.0, Magnesium Level 2.4, Total Bilirubin 0.4, Aspartate Amino Transf (AST/SGOT) 22, Alanine Aminotransferase (ALT/SGPT) 64, Alkaline Phosphatase 97, Total Protein 7.9, Albumin 3.8, Globulin 4.1, Albumin/Globulin Ratio 0.9L Height (Feet): 5 Height (Inches): 4.00 Weight (Pounds): 99 Objective General: NAD, awake, alert, sitting up in bed, A&O x 1 at b/l, aphasic HEENT: NCAT, EOMi, MMM CV: RRR, no murmurs, rubs, or gallops Pulm: CTAB, No wheezes, rhonchi, or rales, no accessory muscle usage GI: Soft, nontender, nondistended, bowel sounds present Ext: No lower extremity edema bilaterally Linsey Ramirez M.D. Feb 06, 2020 10:03
--- NOTE | 2020-02-06 10:45 | Pulmonology Progress Note ---
Assessment/Plan Assessment/Plan IMPRESSION: 1. UTI. esbl e coli 2. Severe hypernatremia. improved 3. Rule out COVID-19. Negative x 1 4. long-term resident. 5. Hypertension. DISCUSSION: Will continue oxygen p.r.n. Continue broad-spectrum antibiotics I will follow carefully. Subjective Interval Events: Saturating well on RA Constitutional: Reports: no symptoms HEENT: Repors: no symptoms Respiratory: Reports: no symptoms Cardiovascular: Reports: no symptoms Gastrointestinal/Abdominal: Reports: no symptoms Allergies: Coded Allergies: No Known Allergies (Unverified , 01/29/20) Objective Last 24 Hour Vital Signs Date Time Temp Pulse Resp B/P (MAP) Pulse Ox O2 Delivery O2 Flow Rate FiO2 02/06/20 09:01 73 125/60 02/06/20 08:00 97.3 73 18 125/60 (81) 98 02/06/20 04:00 97.2 99 16 107/57 (74) 93 02/06/20 00:00 98.1 114 18 128/72 (90) 98 02/05/20 21:47 Room Air 02/05/20 20:00 98.1 107 12 113/65 (81) 99 02/05/20 15:58 97.3 71 17 110/66 (81) 98 02/05/20 12:00 97.0 68 16 102/64 (77) 98 Intake and Output 02/05/20 02/06/20 19:00 07:00 Output Total 600 ml 800 ml Balance -600 ml -800 ml Output Urine Total 600 ml 800 ml General Appearance: no acute distress HEENT: normocephalic Respiratory/Chest: chest wall non-tender, lungs clear Cardiovascular: normal peripheral pulses Abdomen: normal bowel sounds Laboratory Tests 02/06/20 05:45: White Blood Count 6.7, Red Blood Count 4.81, Hemoglobin 14.9, Hematocrit 42.9, Mean Corpuscular Volume 89, Mean Corpuscular Hemoglobin 31.0, Mean Corpuscular Hemoglobin Concent 34.8, Red Cell Distribution Width 12.1, Platelet Count 271, Mean Platelet Volume 6.0L, Neutrophils (%) (Auto) 39.6L, Lymphocytes (%) (Auto) 42.6, Monocytes (%) (Auto) 7.6, Eosinophils (%) (Auto) 9.1H, Basophils (%) (Auto ) 1.0, Prothrombin Time 10.1, Prothromb Time International Ratio 0.9, Activated Partial Thromboplast Time 29, Sodium Level 140, Potassium Level 4.7, Chloride Level 103, Carbon Dioxide Level 24, Anion Gap 13, Blood Urea Nitrogen 14, Creatinine 0.4L, Estimat Glomerular Filtration Rate > 60, Glucose Level 68L, Calcium Level 10.0, Phosphorus Level 4.0, Magnesium Level 2.4, Total Bilirubin 0.4, Aspartate Amino Transf (AST/SGOT) 22, Alanine Aminotransferase (ALT/SGPT) 64, Alkaline Phosphatase 97, Total Protein 7.9, Albumin 3.8, Globulin 4.1, Albumin/Globulin Ratio 0.9L Current Medications Medications (Trade) Dose Ordered Sig/Tory Route PRN Reason Start Time Stop Time Status Last Admin Dose Admin Acetaminophen (Tylenol) 650 mg Q4H PRN ORAL For Pain 01/31/20 14:00 02/28/20 13:59 Amlodipine Besylate (Norvasc) 5 mg DAILY ORAL 02/01/20 09:00 02/29/20 08:59 02/06/20 09:01 Ascorbic Acid (Vitamin C) 250 mg TWICE A DAY ORAL 02/02/20 18:00 03/03/20 17:59 02/06/20 09:01 Dextrose (Dextrose 50%) 25 ml Q30M PRN IV Hypoglycemia 01/31/20 13:00 04/28/20 13:59 Dextrose (Dextrose 50%) 50 ml Q30M PRN IV Hypoglycemia 01/31/20 13:00 04/28/20 13:59 Fish Oil (Fish Oil) 1,000 mg BID ORAL 01/31/20 18:00 03/01/20 17:59 02/06/20 09:00 Folic Acid (Folate) 2 mg DAILY ORAL 02/01/20 09:00 03/01/20 08:59 02/06/20 09:01 Heparin Sodium (Porcine) (Heparin 5000 units/ml) 5,000 units EVERY 8 HOURS SUBQ 02/03/20 14:00 03/19/20 13:59 02/06/20 05:54 Lorazepam (Ativan 2mg/ml 1ml) 1 mg Q4H PRN IM For Anxiety 02/02/20 20:15 02/09/20 20:14 Megestrol Acetate (Megace) 400 mg TWICE A DAY ORAL 02/03/20 18:00 05/03/20 17:59 02/06/20 09:00 Olanzapine (ZyPREXA Zydis) 10 mg BEDTIME ORAL 02/02/20 21:00 03/18/20 20:59 02/05/20 21:08 Ondansetron HCl (Zofran) 4 mg Q6H PRN IVP Nausea & Vomiting 01/31/20 13:00 02/28/20 12:59 Potassium Chloride (K-Dur) 40 meq DAILY ORAL 02/01/20 09:00 05/01/20 08:59 02/06/20 09:01 Tip Moreno MD Feb 06, 2020 10:45
[2020-02-06 12:00] VITALS: BP 125/98
--- NOTE | 2020-02-06 12:12 | Nephrology Progress Note ---
Assessment/Plan Problem List: (1) Hypernatremia (2) Dehydration (3) UTI (urinary tract infection) (4) Acute metabolic encephalopathy (5) Sepsis Assessment Renal impression: Patient has hypernatremia which is indicative of free water depletion, meanwhile elevated hemoglobin indicative of hemoconcentration due to dehydration Other significant conditions: Sepsis/UTI COVID exposure, pending rule out Toxic metabolic encephalopathy UTI History of hypertension Plan Poor p.o. intake GT is a consideration, and I believe it is urgently needed since the patient is very malnourished Suggestions: Discontinue D5W as serum sodium normalized Folic acid p.o. Fish oil for high triglycerides Monitor serum sodium and renal parameters Antibiotics Keep the blood pressure in check Per consultants Remains stable from renal standpoint to view Subjective ROS Limited/Unobtainable: No Constitutional: Reports: weakness Objective Objective Last 24 Hour Vital Signs Date Time Temp Pulse Resp B/P (MAP) Pulse Ox O2 Delivery O2 Flow Rate FiO2 02/06/20 09:01 73 125/60 02/06/20 08:00 97.3 73 18 125/60 (81) 98 02/06/20 04:00 97.2 99 16 107/57 (74) 93 02/06/20 00:00 98.1 114 18 128/72 (90) 98 02/05/20 21:47 Room Air 02/05/20 20:00 98.1 107 12 113/65 (81) 99 02/05/20 15:58 97.3 71 17 110/66 (81) 98 Intake and Output 02/05/20 02/06/20 19:00 07:00 Output Total 600 ml 800 ml Balance -600 ml -800 ml Output Urine Total 600 ml 800 ml Laboratory Tests 02/06/20 05:45: White Blood Count 6.7, Red Blood Count 4.81, Hemoglobin 14.9, Hematocrit 42.9, Mean Corpuscular Volume 89, Mean Corpuscular Hemoglobin 31.0, Mean Corpuscular Hemoglobin Concent 34.8, Red Cell Distribution Width 12.1, Platelet Count 271, Mean Platelet Volume 6.0L, Neutrophils (%) (Auto) 39.6L, Lymphocytes (%) (Auto) 42.6, Monocytes (%) (Auto) 7.6, Eosinophils (%) (Auto) 9.1H, Basophils (%) (Auto ) 1.0, Prothrombin Time 10.1, Prothromb Time International Ratio 0.9, Activated Partial Thromboplast Time 29, Sodium Level 140, Potassium Level 4.7, Chloride Level 103, Carbon Dioxide Level 24, Anion Gap 13, Blood Urea Nitrogen 14, Creatinine 0.4L, Estimat Glomerular Filtration Rate > 60, Glucose Level 68L, Calcium Level 10.0, Phosphorus Level 4.0, Magnesium Level 2.4, Total Bilirubin 0.4, Aspartate Amino Transf (AST/SGOT) 22, Alanine Aminotransferase (ALT/SGPT) 64, Alkaline Phosphatase 97, Total Protein 7.9, Albumin 3.8, Globulin 4.1, Albumin/Globulin Ratio 0.9L Height (Feet): 5 Height (Inches): 4.00 Weight (Pounds): 99 General Appearance: no apparent distress Objective No change Shawn Ferguson MD Feb 06, 2020 12:11
--- NOTE | 2020-02-06 15:04 | Surgery Progress Note ---
Surgery Progress Note Subjective Additional Comments labs stable exam stable no acute events Objective Last 24 Hour Vital Signs Date Time Temp Pulse Resp B/P (MAP) Pulse Ox O2 Delivery O2 Flow Rate FiO2 02/06/20 12:00 98.6 96 20 125/98 (107) 99 02/06/20 09:01 73 125/60 02/06/20 08:00 97.3 73 18 125/60 (81) 98 02/06/20 04:00 97.2 99 16 107/57 (74) 93 02/06/20 00:00 98.1 114 18 128/72 (90) 98 02/05/20 21:47 Room Air 02/05/20 20:00 98.1 107 12 113/65 (81) 99 02/05/20 15:58 97.3 71 17 110/66 (81) 98 I&O Intake and Output 02/05/20 02/06/20 19:00 07:00 Output Total 600 ml 800 ml Balance -600 ml -800 ml Output Urine Total 600 ml 800 ml Dressing: saturated Wound: clean Cardiovascular: RSR Respiratory: decreased breath sounds Abdomen: soft, non-tender, present bowel sounds Extremities: no tenderness, no cyanosis Laboratory Tests Test 02/06/20 05:45 White Blood Count 6.7 K/UL (4.8-10.8) Red Blood Count 4.81 M/UL (4.20-5.40) Hemoglobin 14.9 G/DL (12.0-16.0) Hematocrit 42.9 % (37.0-47.0) Mean Corpuscular Volume 89 FL (80-99) Mean Corpuscular Hemoglobin 31.0 PG (27.0-31.0) Mean Corpuscular Hemoglobin Concent 34.8 G/DL (32.0-36.0) Red Cell Distribution Width 12.1 % (11.6-14.8) Platelet Count 271 K/UL (150-450) Mean Platelet Volume 6.0 FL (6.5-10.1) L Neutrophils (%) (Auto) 39.6 % (45.0-75.0) L Lymphocytes (%) (Auto) 42.6 % (20.0-45.0) Monocytes (%) (Auto) 7.6 % (1.0-10.0) Eosinophils (%) (Auto) 9.1 % (0.0-3.0) H Basophils (%) (Auto) 1.0 % (0.0-2.0) Prothrombin Time 10.1 SEC (9.30-11.50) Prothromb Time International Ratio 0.9 (0.9-1.1) Activated Partial Thromboplast Time 29 SEC (23-33) Sodium Level 140 MMOL/L (136-145) Potassium Level 4.7 MMOL/L (3.5-5.1) Chloride Level 103 MMOL/L (98-107) Carbon Dioxide Level 24 MMOL/L (21-32) Anion Gap 13 mmol/L (5-15) Blood Urea Nitrogen 14 mg/dL (7-18) Creatinine 0.4 MG/DL (0.55-1.30) L Estimat Glomerular Filtration Rate > 60 mL/min (>60) Glucose Level 68 MG/DL (74-106) L Calcium Level 10.0 MG/DL (8.5-10.1) Phosphorus Level 4.0 MG/DL (2.5-4.9) Magnesium Level 2.4 MG/DL (1.8-2.4) Total Bilirubin 0.4 MG/DL (0.2-1.0) Aspartate Amino Transf (AST/SGOT) 22 U/L (15-37) Alanine Aminotransferase (ALT/SGPT) 64 U/L (12-78) Alkaline Phosphatase 97 U/L (46-116) Total Protein 7.9 G/DL (6.4-8.2) Albumin 3.8 G/DL (3.4-5.0) Globulin 4.1 g/dL Albumin/Globulin Ratio 0.9 (1.0-2.7) L Plan Problems: (1) Decubitus skin ulcer Assessment & Plan: Patient presented on admission with large sacral deep tissue injury unstageable decubitus ulcer. Noted to have 2 areas of epidermal breakdown with underlying tissue was purple and pink somewhat blanchable in certain areas. No signs of active infection noted mild discomfort reported with palpation No underlying fluctuance identified Seemingly newly formed and will need to be monitored closely for further breakdown. Treatment plan Wash sacral decubitus ulcer daily with normal saline. Apply skin protectant and foam dressing. Will need to monitor closely for further breakdown. Unable to stage exact course of disease at this time given the deep tissue injury along with unstageable area of breakdown. Turn every 2 hours Offload pressure and heels with pillow Heel protectors Nutritional optimization patient's BMI and albumin low. Nutritional input appreciated Air mattress We will follow with recommendations thank you (2) Sepsis Assessment & Plan: Gallbladder is unremarkable, without stones, wall thickening , nor pericholecystic fluid. Sonographic Vallecillo's sign is negative. Common bile duct measures 7 mm in diameter. No intrahepatic biliary ductal dilatation. Liver demonstrates normal echogenicity, no focal abnormality. Portal vein and hepatic veins are patent. Pancreas is unremarkable. Spleen is unremarkable. Left kidney measures 11.6 cm in length. Right kidney measures 9.9 cm length. Both kidneys demonstrate normal echogenicity. There is no hydronephrosis. No focal abnormality . Abdominal aorta is partially obscured by bowel gas, visualized portions are non-aneurysmal . Impression: Mildly ectatic common bile duct, may be age-related but downstream obstruction not completely excludable. Correlate with liver function tests, consider MRCP for further evaluation if clinically indicated Negative for gallstones or other significant abnormality. Note nonvisualization of the distal abdominal aorta likely UTI no abd pathology decubitus not infected (3) UTI (urinary tract infection) Assessment & Plan: on abx as per ID (4) Acute metabolic encephalopathy (5) Dehydration (6) Hypernatremia (7) Severe protein-calorie malnutrition Assessment & Plan: DAILY ESTIMATED NEEDS: Needs based on Wound 60kg abw 25-30 kcals/kg 1678-5163 total kcals 1.25-1.5 g protein/kg 75-90 g total protein 25-30 mL/kg 6155-3384 total fluid mLs NUTRITION DIAGNOSIS: Increased pro needs r/t wound healing as evidenced by sacral unstageable wound. CURRENT DIET:Regular puree PO DIET RECOMMENDATIONS: Maintain Regular liberalized diet w/ poor intake ADDITIONAL RECOMMENDATIONS: 1) Rec STORE CLERK CHECKER eval for appropriate texture for improved acceptance 2) Add Ensure 1 bottle w/ meals 3) Wound care: Add BEATRIZ BID + Vit C 250mg BID F/up w/ WC eval 4) Maintain calibrated bed scale wts 5) Monitor BG, need for hypoglycemics Pavan Maddox Feb 06, 2020 15:04
[2020-02-06 16:00] VITALS: BP 135/73
--- NOTE | 2020-02-06 17:03 | Infectious Diseases Prog Note ---
Assessment/Plan Assessment/Plan ASSESSMENT AND PLAN: 1. esbl e.coli uti/pyelonephritis, vamp maker blood cultures likely contaminant , sepsis, fevers - meropenem - s/p 7 days treatment - surveillance blood cultures - negative - monitor labs - clinically improved - covid-19 testing negative - will sign off, call if questions - thank you 2. The patient has a history of arthrosclerosis of aorta. 3. History of urinary tract infection. 4. Anemia. 5. Malnutrition. 6. Pak. 7. Altered mental status. 8. The patient comes from [facility] that has COVID-19 positive patients. 9. No allergies. 10. Social history is negative. 11. Family history is noncontributory. 12. MAR is noted. 13. Case discussed with RN. 14. Case discussed with Dr. Ramirez. 15. Continue treatment per primary consultants. Subjective Constitutional: Denies: fever Respiratory: Denies: shortness of breath Gastrointestinal/Abdominal: Denies: nausea, vomiting, diarrhea Genitourinary: Reports: other - no foey Neurologic: Denies: headache Psychiatric: Denies: depression Skin: Denies: rash Musculoskeletal: Denies: pain Allergies: Coded Allergies: No Known Allergies (Unverified , 01/29/20) Objective Vital Signs Last 24 Hour Vital Signs Date Time Temp Pulse Resp B/P (MAP) Pulse Ox O2 Delivery O2 Flow Rate FiO2 02/06/20 16:00 98.3 76 20 135/73 (93) 96 02/06/20 12:00 98.6 96 20 125/98 (107) 99 02/06/20 09:01 73 125/60 02/06/20 08:00 97.3 73 18 125/60 (81) 98 02/06/20 04:00 97.2 99 16 107/57 (74) 93 02/06/20 00:00 98.1 114 18 128/72 (90) 98 02/05/20 21:47 Room Air 02/05/20 20:00 98.1 107 12 113/65 (81) 99 Height (Feet): 5 Height (Inches): 4.00 Weight (Pounds): 99 General Appearance: no acute distress HEENT: normocephalic, atraumatic, anicteric Respiratory/Chest: lungs clear, normal breath sounds, no respiratory distress, no accessory muscle use Cardiovascular: normal rate, regular rhythm, no gallop/murmur, no JVD Abdomen: normal bowel sounds, soft, non tender, no organomegaly, non distended Genitourinary: other - no pak Extremities: no cyanosis Skin: no rash Neurologic/Psychiatric: director of field sales II-XII grossly normal, alert, responsive Lymphatic: no neck adenopathy Musculoskeletal: no effusion Objective Chest x-ray - TECHNIQUE: Frontal view of the chest. COMPARISON: No relevant prior studies available. FINDINGS: Lungs: Unremarkable. The lungs appear clear. No focal consolidation. Pleural space: Unremarkable. The costophrenic angles are sharp. No visible pneumothorax. Heart: Unremarkable. No cardiomegaly. Mediastinum: Unremarkable. Bones/joints: Degenerative changes throughout the visualized spine and shoulder joints. Vasculature: Atherosclerotic calcifications within the aortic arch. Tubes, lines and devices: Telemetry leads overlie the thorax. IMPRESSION: No acute findings. Microbiology Date/Time Source Procedure Growth Status 01/31/20 12:05 Blood Blood Culture - Final NO GROWTH AFTER 5 DAYS Complete 01/29/20 12:10 Nasal Nares MRSA Culture - Final NO METHICILLIN RESISTANT STAPH AUREUS... Complete 01/29/20 11:43 Urine,Clean Catch Urine Culture - Final Escherichia Coli - Esbl Complete 01/29/20 12:10 Rectum - Final NO CARBAPENEM-RESISTANT ENTEROBACTERI... Complete Laboratory Tests Test 02/06/20 05:45 White Blood Count 6.7 K/UL (4.8-10.8) Red Blood Count 4.81 M/UL (4.20-5.40) Hemoglobin 14.9 G/DL (12.0-16.0) Hematocrit 42.9 % (37.0-47.0) Mean Corpuscular Volume 89 FL (80-99) Mean Corpuscular Hemoglobin 31.0 PG (27.0-31.0) Mean Corpuscular Hemoglobin Concent 34.8 G/DL (32.0-36.0) Red Cell Distribution Width 12.1 % (11.6-14.8) Platelet Count 271 K/UL (150-450) Mean Platelet Volume 6.0 FL (6.5-10.1) L Neutrophils (%) (Auto) 39.6 % (45.0-75.0) L Lymphocytes (%) (Auto) 42.6 % (20.0-45.0) Monocytes (%) (Auto) 7.6 % (1.0-10.0) Eosinophils (%) (Auto) 9.1 % (0.0-3.0) H Basophils (%) (Auto) 1.0 % (0.0-2.0) Prothrombin Time 10.1 SEC (9.30-11.50) Prothromb Time International Ratio 0.9 (0.9-1.1) Activated Partial Thromboplast Time 29 SEC (23-33) Sodium Level 140 MMOL/L (136-145) Potassium Level 4.7 MMOL/L (3.5-5.1) Chloride Level 103 MMOL/L (98-107) Carbon Dioxide Level 24 MMOL/L (21-32) Anion Gap 13 mmol/L (5-15) Blood Urea Nitrogen 14 mg/dL (7-18) Creatinine 0.4 MG/DL (0.55-1.30) L Estimat Glomerular Filtration Rate > 60 mL/min (>60) Glucose Level 68 MG/DL (74-106) L Calcium Level 10.0 MG/DL (8.5-10.1) Phosphorus Level 4.0 MG/DL (2.5-4.9) Magnesium Level 2.4 MG/DL (1.8-2.4) Total Bilirubin 0.4 MG/DL (0.2-1.0) Aspartate Amino Transf (AST/SGOT) 22 U/L (15-37) Alanine Aminotransferase (ALT/SGPT) 64 U/L (12-78) Alkaline Phosphatase 97 U/L (46-116) Total Protein 7.9 G/DL (6.4-8.2) Albumin 3.8 G/DL (3.4-5.0) Globulin 4.1 g/dL Albumin/Globulin Ratio 0.9 (1.0-2.7) L Current Medications Medications (Trade) Dose Ordered Sig/Tory Route PRN Reason Start Time Stop Time Status Last Admin Dose Admin Acetaminophen (Tylenol) 650 mg Q4H PRN ORAL For Pain 01/31/20 14:00 02/28/20 13:59 Amlodipine Besylate (Norvasc) 5 mg DAILY ORAL 02/01/20 09:00 02/29/20 08:59 02/06/20 09:01 Ascorbic Acid (Vitamin C) 250 mg TWICE A DAY ORAL 4/8/20 18:00 03/03/20 17:59 02/06/20 09:01 Dextrose (Dextrose 50%) 25 ml Q30M PRN IV Hypoglycemia 01/31/20 13:00 04/28/20 13:59 Dextrose (Dextrose 50%) 50 ml Q30M PRN IV Hypoglycemia 01/31/20 13:00 04/28/20 13:59 Fish Oil (Fish Oil) 1,000 mg BID ORAL 01/31/20 18:00 03/01/20 17:59 02/06/20 09:00 Folic Acid (Folate) 2 mg DAILY ORAL 02/01/20 09:00 03/01/20 08:59 02/06/20 09:01 Heparin Sodium (Porcine) (Heparin 5000 units/ml) 5,000 units EVERY 8 HOURS SUBQ 02/03/20 14:00 03/19/20 13:59 02/06/20 13:14 Lorazepam (Ativan 2mg/ml 1ml) 1 mg Q4H PRN IM For Anxiety 02/02/20 20:15 02/09/20 20:14 Megestrol Acetate (Megace) 400 mg TWICE A DAY ORAL 02/03/20 18:00 05/03/20 17:59 02/06/20 09:00 Olanzapine (ZyPREXA Zydis) 10 mg BEDTIME ORAL 02/02/20 21:00 03/18/20 20:59 02/05/20 21:08 Ondansetron HCl (Zofran) 4 mg Q6H PRN IVP Nausea & Vomiting 01/31/20 13:00 02/28/20 12:59 Potassium Chloride (K-Dur) 40 meq DAILY ORAL 02/01/20 09:00 05/01/20 08:59 02/06/20 09:01 Alfonso Sotomayor MD Feb 06, 2020 17:03
--- NOTE | 2020-02-06 19:51 | NUR ---
HAND-OFF: Report given to MIKE Jovel.
[2020-02-06 20:00] VITALS: BP 138/80
--- NOTE | 2020-02-06 20:42 | Neurology Progress Note ---
Interim History Interim History ROS Limited/Unobtainable: No Interim History no new events Objective Physical Exam Last Vital Signs Date Time Temp Pulse Resp B/P (MAP) Pulse Ox O2 Delivery O2 Flow Rate FiO2 02/06/20 16:00 98.3 76 20 135/73 (93) 96 02/05/20 21:47 Room Air Laboratory Tests Test 02/06/20 05:45 White Blood Count 6.7 K/UL (4.8-10.8) Red Blood Count 4.81 M/UL (4.20-5.40) Hemoglobin 14.9 G/DL (12.0-16.0) Hematocrit 42.9 % (37.0-47.0) Mean Corpuscular Volume 89 FL (80-99) Mean Corpuscular Hemoglobin 31.0 PG (27.0-31.0) Mean Corpuscular Hemoglobin Concent 34.8 G/DL (32.0-36.0) Red Cell Distribution Width 12.1 % (11.6-14.8) Platelet Count 271 K/UL (150-450) Mean Platelet Volume 6.0 FL (6.5-10.1) L Neutrophils (%) (Auto) 39.6 % (45.0-75.0) L Lymphocytes (%) (Auto) 42.6 % (20.0-45.0) Monocytes (%) (Auto) 7.6 % (1.0-10.0) Eosinophils (%) (Auto) 9.1 % (0.0-3.0) H Basophils (%) (Auto) 1.0 % (0.0-2.0) Prothrombin Time 10.1 SEC (9.30-11.50) Prothromb Time International Ratio 0.9 (0.9-1.1) Activated Partial Thromboplast Time 29 SEC (23-33) Sodium Level 140 MMOL/L (136-145) Potassium Level 4.7 MMOL/L (3.5-5.1) Chloride Level 103 MMOL/L (98-107) Carbon Dioxide Level 24 MMOL/L (21-32) Anion Gap 13 mmol/L (5-15) Blood Urea Nitrogen 14 mg/dL (7-18) Creatinine 0.4 MG/DL (0.55-1.30) L Estimat Glomerular Filtration Rate > 60 mL/min (>60) Glucose Level 68 MG/DL (74-106) L Calcium Level 10.0 MG/DL (8.5-10.1) Phosphorus Level 4.0 MG/DL (2.5-4.9) Magnesium Level 2.4 MG/DL (1.8-2.4) Total Bilirubin 0.4 MG/DL (0.2-1.0) Aspartate Amino Transf (AST/SGOT) 22 U/L (15-37) Alanine Aminotransferase (ALT/SGPT) 64 U/L (12-78) Alkaline Phosphatase 97 U/L (46-116) Total Protein 7.9 G/DL (6.4-8.2) Albumin 3.8 G/DL (3.4-5.0) Globulin 4.1 g/dL Albumin/Globulin Ratio 0.9 (1.0-2.7) L Impression/Recommendations Problems: (1) Decubitus skin ulcer (2) Anemia (3) FTT (failure to thrive) in adult (4) Sepsis (5) UTI (urinary tract infection) (6) Acute metabolic encephalopathy (7) Dehydration (8) Hypernatremia (9) Severe protein-calorie malnutrition Gucci Weber MD Feb 06, 2020 20:42
[2020-02-06] MEDS: ZyPREXA Zydis 10mg tab ORAL SCH (21:19)
[2020-02-07] VITALS: BP 114/73
[2020-02-07 04:00] VITALS: BP 103/65
[2020-02-07] MEDS: Heparin 5000 units/ml inj SUBQ SCH ×3 (05:37→20:53)
--- NOTE | 2020-02-07 07:44 | NUR ---
HAND-OFF: Report given to MIKE Garrett.
[2020-02-07 08:00] VITALS: BP 130/76
--- NOTE | 2020-02-07 08:22 | NUR ---
NURSE NOTES: pt is in the bed asleep. respiration is even and unlabored. HOB elevated. no facial grimace for pain and discomfort noted at this time. call light is within reach, will continue to monitor.
--- NOTE | 2020-02-07 09:26 | General Progress Note ---
Assessment/Plan Problem List: (1) Anemia ICD Codes: D64.9 - Anemia, unspecified SNOMED: 288738787 (2) FTT (failure to thrive) in adult ICD Codes: R62.7 - Adult failure to thrive SNOMED: 634951456 (3) Severe protein-calorie malnutrition ICD Codes: E43 - Unspecified severe protein-calorie malnutrition SNOMED: 603477595, 884203584, 718374532 (4) Hypernatremia ICD Codes: E87.0 - Hyperosmolality and hypernatremia SNOMED: 125981410 (5) Dehydration ICD Codes: E86.0 - Dehydration SNOMED: 61343158 (6) Acute metabolic encephalopathy ICD Codes: G93.41 - Metabolic encephalopathy SNOMED: 48648958, 657222632 (7) UTI (urinary tract infection) ICD Codes: N39.0 - Urinary tract infection, site not specified SNOMED: 24536120 Qualifiers: Qualified Codes: N39.0 - Urinary tract infection, site not specified (8) Sepsis ICD Codes: A41.9 - Sepsis, unspecified organism SNOMED: 70136562 Qualifiers: Qualified Codes: A41.9 - Sepsis, unspecified organism; R65.20 - Severe sepsis without septic shock; G93.40 - Encephalopathy, unspecified Assessment/Plan: anemia work up megace>>> will dc sub Q heparin pending bilingual social worker consult for finding family patient needs PEG to survive patient is unable to consent bilingual social worker unable to locate a family member d/w PMD, plan 2 consent for PEG Subjective ROS Limited/Unobtainable: No Allergies: Coded Allergies: No Known Allergies (Unverified , 01/29/20) Objective Last 24 Hour Vital Signs Date Time Temp Pulse Resp B/P (MAP) Pulse Ox O2 Delivery O2 Flow Rate FiO2 02/07/20 08:00 98.5 77 19 130/76 (94) 97 02/07/20 04:00 97.9 86 19 103/65 (78) 96 02/07/20 00:00 97.9 110 19 114/73 (87) 96 02/06/20 21:47 Room Air 02/06/20 20:00 98.7 111 19 138/80 (99) 95 02/06/20 16:00 98.3 76 20 135/73 (93) 96 02/06/20 12:00 98.6 96 20 125/98 (107) 99 Intake and Output 02/06/20 02/07/20 19:00 07:00 Intake Total 118 ml 240 ml Output Total 200 ml 300 ml Balance -82 ml -60 ml Intake Oral 118 ml 240 ml Output Urine Total 200 ml 300 ml # Bowel Movements 2 Height (Feet): 5 Height (Inches): 4.00 Weight (Pounds): 99 General Appearance: lethargic EENT: normal ENT inspection Neck: supple Cardiovascular: normal rate Respiratory/Chest: decreased breath sounds Abdomen: normal bowel sounds, non tender, soft Extremities: non-tender Min Salazar MD Feb 07, 2020 09:26
[2020-02-07] MEDS: Megace 400mg/10ml Susp ORAL SCH ×2 (09:39→18:21)
[2020-02-07] MEDS: Ascorbic Acid 500mg tab ORAL SCH ×2 (09:39→18:21)
--- NOTE | 2020-02-07 09:49 | General Progress Note ---
Assessment/Plan Assessment/Plan: 64-year-old female from [facility] w/PMH encephalopathy, UTI, anemia, atherosclerosis of aorta who presents with acute altered mentation, fevers and failure to thrive. Pt found to be septic, temperature 100.9, HR 120, RR 24, sepsis bolus was given in the ED, Vanc, Zosyn, gentamicin were given. #Acute Toxic Metabolic Encephalopathy 2/2 #Severe Sepsis, POA #UTI -Cont. inpatient medical care, cardiac monitoring -COVID NEGATIVE, Flu A/B negative -BCx growing Staph epi -UCx E. coli -s/p 7 days of meropenem -Pulm and ID following #Hypernatremia, resolved #Dehydration #elevated Hgb/Hct - likely 2/2 hemoconcentration -likely 2/2 dehydration -S/p D5W -monitor BMP -Renal following #Sinus Tachycardia - resolved -Likely multifactorial, 2/2 sepsis/dehydration -seen on EKG sinus tachycardia, HR 137, non-specific ST abnormalities -trop 0.011, 0.028 -CXR negative for acute process -BNP 288 -improved with volume expansion -cont. to monitor #Transaminitis -likely 2/2 sepsis -Abd US equivocal -Hepatitis panel negative -cont. to monitor LFTs, will consider GI eval #Severe protein calorie malnutrition #Physical Deconditioning -Dietitian and TUBE CUTTER OPERATOR eval -PT/OT -GI consulted for PEG tube placement -supervisor customer services unable to locate family -d/w Dr. Salazar and Dr. Ferguson who both agree that pt will need PEG to survive -agree with PEG tube placement -Peg placement per GI DVT PPx: lovenox Time spent on encounter: 35 mins, >50% on coordination of care. Subjective Allergies: Coded Allergies: No Known Allergies (Unverified , 01/29/20) Subjective f/u for sepsis/acute metabolic encephalopathy, UTI s/p abx. Pt FTT needs PEG tube. Pt awake, comfortable D/w GI and Nephro who both agree PEG tube is appropriate at this time. Objective Last 24 Hour Vital Signs Date Time Temp Pulse Resp B/P (MAP) Pulse Ox O2 Delivery O2 Flow Rate FiO2 02/07/20 09:40 77 130/76 02/07/20 08:00 98.5 77 19 130/76 (94) 97 02/07/20 04:00 97.9 86 19 103/65 (78) 96 02/07/20 00:00 97.9 110 19 114/73 (87) 96 02/06/20 21:47 Room Air 02/06/20 20:00 98.7 111 19 138/80 (99) 95 02/06/20 16:00 98.3 76 20 135/73 (93) 96 02/06/20 12:00 98.6 96 20 125/98 (107) 99 Intake and Output 02/06/20 02/07/20 19:00 07:00 Intake Total 118 ml 240 ml Output Total 200 ml 300 ml Balance -82 ml -60 ml Intake Oral 118 ml 240 ml Output Urine Total 200 ml 300 ml # Bowel Movements 2 Height (Feet): 5 Height (Inches): 4.00 Weight (Pounds): 99 Objective General: NAD, awake, alert, sitting up in bed, A&O x 1 at b/l, aphasic HEENT: NCAT, EOMi, MMM CV: RRR, no murmurs, rubs, or gallops Pulm: CTAB, No wheezes, rhonchi, or rales, no accessory muscle usage GI: Soft, nontender, nondistended, bowel sounds present Ext: No lower extremity edema bilaterally Linsey Ramirez M.D. Feb 07, 2020 09:49
--- NOTE | 2020-02-07 09:52 | NUR ---
RD ASSESSMENT & RECOMMENDATIONS SEE CARE ACTIVITY FOR COMPLETE ASSESSMENT DAILY ESTIMATED NEEDS: Needs based on Wound, underweight/ 46kg 30-35 kcals/kg 1460-0036 total kcals 1.25-1.8 g protein/kg 58-83 g total protein 25-30 mL/kg 8507-6257 total fluid mLs NUTRITION DIAGNOSIS: Increased kcal/prot needs r/t wound healing, underweight status as evidenced by sacral DTPI wound and pt at 84% IBW w/ BMI of 17.4, w/ prolonged poor and variable PO intake, plan for PEG placement once consented. CURRENT DIET:Regular/ liquify pureed + NTL PO DIET RECOMMENDATIONS: Regular liberalized diet w/ poor intake (texture per A R SPECIALIST) ENTERAL NUTRITION RECOMMENDATIONS: W/ GI access + part of POC -> Jevity 1.2 @ 55ml/hr x 24 hrs to provide 1320ml, 1584kcal, 73g prot, 1065ml free water * IF PART OF POC, OBTAIN GI ACCESS TO MEET NUTRITIONAL NEEDS DUE TO PROLONGED POOR AND VARIABLE PO INTAKE, PT ALREADY UNDERWEIGHT, W/ SKIN BREAKDOWN. -> initiate Jevity 1.2 @ 15ml/hr x 6 hrs -> advance 10ml q 4-6 hrs as tolerated to goal rate -> HOB Over 30 degrees -> Without IVF, rec water flush of 100ml q 8 hrs -> Pt at high risk for refeeding syndrome, monitor lytes, replete prn ADDITIONAL RECOMMENDATIONS: 1) Calibrated bedscale wt (w/ added p200 mattress + pump) 2) Wound care: continue Vit C 250mg BID add MVI x 1/ Dipak BID as tolerated 3) POPPY COUNT X 24 HRS COMPLETED 02/02 -> INADEQUATE INTAKE 4) W/ TF, monitor lytes daily, replete as needed -> HIGH RISK FOR REFEEDING SYNDROME 5) Rec D5 IVF until TF initiated to prevent hypoglycemia.
--- NOTE | 2020-02-07 10:15 | Pulmonology Progress Note ---
Assessment/Plan Assessment/Plan IMPRESSION: 1. UTI. esbl e coli 2. Severe hypernatremia. improved 3. Rule out COVID-19. Negative x 1 4. [facility] resident. 5. Hypertension. DISCUSSION: Will continue oxygen p.r.n. Continue broad-spectrum antibiotics I will follow carefully. Subjective Interval Events: None new Constitutional: Reports: no symptoms HEENT: Repors: no symptoms Respiratory: Reports: no symptoms Cardiovascular: Reports: no symptoms Gastrointestinal/Abdominal: Reports: no symptoms Allergies: Coded Allergies: No Known Allergies (Unverified , 01/29/20) Objective Last 24 Hour Vital Signs Date Time Temp Pulse Resp B/P (MAP) Pulse Ox O2 Delivery O2 Flow Rate FiO2 02/07/20 09:40 77 130/76 02/07/20 08:00 98.5 77 19 130/76 (94) 97 02/07/20 04:00 97.9 86 19 103/65 (78) 96 02/07/20 00:00 97.9 110 19 114/73 (87) 96 02/06/20 21:47 Room Air 02/06/20 20:00 98.7 111 19 138/80 (99) 95 02/06/20 16:00 98.3 76 20 135/73 (93) 96 02/06/20 12:00 98.6 96 20 125/98 (107) 99 Intake and Output 02/06/20 02/07/20 19:00 07:00 Intake Total 118 ml 240 ml Output Total 200 ml 300 ml Balance -82 ml -60 ml Intake Oral 118 ml 240 ml Output Urine Total 200 ml 300 ml # Bowel Movements 2 General Appearance: no acute distress HEENT: normocephalic Respiratory/Chest: chest wall non-tender, lungs clear Cardiovascular: normal peripheral pulses Abdomen: normal bowel sounds Current Medications Medications (Trade) Dose Ordered Sig/Tory Route PRN Reason Start Time Stop Time Status Last Admin Dose Admin Acetaminophen (Tylenol) 650 mg Q4H PRN ORAL For Pain 01/31/20 14:00 02/28/20 13:59 Amlodipine Besylate (Norvasc) 5 mg DAILY ORAL 02/01/20 09:00 02/29/20 08:59 02/07/20 09:40 Ascorbic Acid (Vitamin C) 250 mg TWICE A DAY ORAL 02/02/20 18:00 03/03/20 17:59 02/07/20 09:39 Dextrose (Dextrose 50%) 25 ml Q30M PRN IV Hypoglycemia 01/31/20 13:00 04/28/20 13:59 Dextrose (Dextrose 50%) 50 ml Q30M PRN IV Hypoglycemia 01/31/20 13:00 04/28/20 13:59 Fish Oil (Fish Oil) 1,000 mg BID ORAL 01/31/20 18:00 03/01/20 17:59 02/07/20 09:40 Folic Acid (Folate) 2 mg DAILY ORAL 02/01/20 09:00 03/01/20 08:59 02/07/20 09:40 Heparin Sodium (Porcine) (Heparin 5000 units/ml) 5,000 units EVERY 8 HOURS SUBQ 02/03/20 14:00 03/19/20 13:59 02/07/20 05:37 Lorazepam (Ativan 2mg/ml 1ml) 1 mg Q4H PRN IM For Anxiety 02/02/20 20:15 02/09/20 20:14 Megestrol Acetate (Megace) 400 mg TWICE A DAY ORAL 02/03/20 18:00 05/03/20 17:59 02/07/20 09:39 Olanzapine (ZyPREXA Zydis) 10 mg BEDTIME ORAL 02/02/20 21:00 03/18/20 20:59 02/06/20 21:19 Ondansetron HCl (Zofran) 4 mg Q6H PRN IVP Nausea & Vomiting 01/31/20 13:00 02/28/20 12:59 Potassium Chloride (K-Dur) 40 meq DAILY ORAL 02/01/20 09:00 05/01/20 08:59 02/07/20 09:40 Tip Moreno MD Feb 07, 2020 10:15
--- NOTE | 2020-02-07 11:58 | Surgery Progress Note ---
Surgery Progress Note Subjective Additional Comments no acute events comfortable labs stable micro reviewed Objective Last 24 Hour Vital Signs Date Time Temp Pulse Resp B/P (MAP) Pulse Ox O2 Delivery O2 Flow Rate FiO2 02/07/20 09:40 77 130/76 02/07/20 08:00 98.5 77 19 130/76 (94) 97 02/07/20 04:00 97.9 86 19 103/65 (78) 96 02/07/20 00:00 97.9 110 19 114/73 (87) 96 02/06/20 21:47 Room Air 02/06/20 20:00 98.7 111 19 138/80 (99) 95 02/06/20 16:00 98.3 76 20 135/73 (93) 96 02/06/20 12:00 98.6 96 20 125/98 (107) 99 I&O Intake and Output 02/06/20 02/07/20 19:00 07:00 Intake Total 118 ml 240 ml Output Total 200 ml 300 ml Balance -82 ml -60 ml Intake Oral 118 ml 240 ml Output Urine Total 200 ml 300 ml # Bowel Movements 2 Dressing: saturated Wound: clean Cardiovascular: RSR Respiratory: clear, decreased breath sounds Abdomen: soft, non-tender, present bowel sounds Extremities: no tenderness, no cyanosis Plan Problems: (1) Decubitus skin ulcer Assessment & Plan: Patient presented on admission with large sacral deep tissue injury unstageable decubitus ulcer. Noted to have 2 areas of epidermal breakdown with underlying tissue was purple and pink somewhat blanchable in certain areas. No signs of active infection noted mild discomfort reported with palpation No underlying fluctuance identified Seemingly newly formed and will need to be monitored closely for further breakdown. Treatment plan Wash sacral decubitus ulcer daily with normal saline. Apply skin protectant and foam dressing. Will need to monitor closely for further breakdown. Unable to stage exact course of disease at this time given the deep tissue injury along with unstageable area of breakdown. Turn every 2 hours Offload pressure and heels with pillow Heel protectors Nutritional optimization patient's BMI and albumin low. Nutritional input appreciated Air mattress We will follow with recommendations thank you (2) Sepsis Assessment & Plan: Gallbladder is unremarkable, without stones, wall thickening , nor pericholecystic fluid. Sonographic Vallecillo's sign is negative. Common bile duct measures 7 mm in diameter. No intrahepatic biliary ductal dilatation. Liver demonstrates normal echogenicity, no focal abnormality. Portal vein and hepatic veins are patent. Pancreas is unremarkable. Spleen is unremarkable. Left kidney measures 11.6 cm in length. Right kidney measures 9.9 cm length. Both kidneys demonstrate normal echogenicity. There is no hydronephrosis. No focal abnormality . Abdominal aorta is partially obscured by bowel gas, visualized portions are non-aneurysmal . Impression: Mildly ectatic common bile duct, may be age-related but downstream obstruction not completely excludable. Correlate with liver function tests, consider MRCP for further evaluation if clinically indicated Negative for gallstones or other significant abnormality. Note nonvisualization of the distal abdominal aorta likely UTI no abd pathology decubitus not infected labs improved overall improved d/c planning (3) UTI (urinary tract infection) Assessment & Plan: on abx as per ID (4) Acute metabolic encephalopathy (5) Dehydration (6) Hypernatremia (7) Severe protein-calorie malnutrition Assessment & Plan: DAILY ESTIMATED NEEDS: Needs based on Wound 60kg abw 25-30 kcals/kg 7371-2473 total kcals 1.25-1.5 g protein/kg 75-90 g total protein 25-30 mL/kg 5576-9413 total fluid mLs NUTRITION DIAGNOSIS: Increased pro needs r/t wound healing as evidenced by sacral unstageable wound. CURRENT DIET:Regular puree PO DIET RECOMMENDATIONS: Maintain Regular liberalized diet w/ poor intake ADDITIONAL RECOMMENDATIONS: 1) Rec DIAMOND MOUNTER eval for appropriate texture for improved acceptance 2) Add Ensure 1 bottle w/ meals 3) Wound care: Add BEATRIZ BID + Vit C 250mg BID F/up w/ WC eval 4) Maintain calibrated bed scale wts 5) Monitor BG, need for hypoglycemics Pavan Maddox Feb 07, 2020 11:58
[2020-02-07 12:00] VITALS: BP 128/74
--- NOTE | 2020-02-07 12:28 | Nephrology Progress Note ---
Assessment/Plan Problem List: (1) Hypernatremia (2) Dehydration (3) UTI (urinary tract infection) (4) Acute metabolic encephalopathy (5) Sepsis Assessment Renal impression: Patient has hypernatremia which is indicative of free water depletion, meanwhile elevated hemoglobin indicative of hemoconcentration due to dehydration Other significant conditions: Sepsis/UTI COVID exposure, pending rule out Toxic metabolic encephalopathy UTI History of hypertension Plan Poor p.o. intake GT is a consideration, and I believe it is urgently needed since the patient is very malnourished Suggestions: Discontinue D5W as serum sodium normalized Folic acid p.o. Fish oil for high triglycerides Monitor serum sodium and renal parameters Antibiotics Keep the blood pressure in check Per consultants Remains stable from renal standpoint to view Subjective ROS Limited/Unobtainable: No Constitutional: Reports: malaise, weakness Objective Objective Last 24 Hour Vital Signs Date Time Temp Pulse Resp B/P (MAP) Pulse Ox O2 Delivery O2 Flow Rate FiO2 02/07/20 09:40 77 130/76 02/07/20 08:00 98.5 77 19 130/76 (94) 97 02/07/20 04:00 97.9 86 19 103/65 (78) 96 02/07/20 00:00 97.9 110 19 114/73 (87) 96 02/06/20 21:47 Room Air 02/06/20 20:00 98.7 111 19 138/80 (99) 95 02/06/20 16:00 98.3 76 20 135/73 (93) 96 Intake and Output 02/06/20 02/07/20 19:00 07:00 Intake Total 118 ml 240 ml Output Total 200 ml 300 ml Balance -82 ml -60 ml Intake Oral 118 ml 240 ml Output Urine Total 200 ml 300 ml # Bowel Movements 2 No labs drawn today Height (Feet): 5 Height (Inches): 4.00 Weight (Pounds): 99 General Appearance: no apparent distress, lethargic Cardiovascular: tachycardia Respiratory/Chest: decreased breath sounds Abdomen: soft Objective No change Shawn Ferguson MD Feb 07, 2020 12:28
--- NOTE | 2020-02-07 13:17 | NUR ---
CASE MANAGEMENT:REVIEW 02/07/2020 SI;AC TOXIC MET ENCEPHALOPATHY. UTI. SEVERE MALNUTRITION. 98.7 111 19 103/65 95% ON RA NO LABS AVAILABLE IS;MEGACE PO BID K-DUR PO QD ATIVAN IM Q4 HRS PRN ZYPREXA PO HS MED SURG STATUS DCP;FROM [facility];PEG PLACEMENT PENDING BIOETHIC COMMITTEE CASE MANAGEMENT:REVIEW 02/06/2020 SI;AC TOXIC MET ENCEPHALOPATHY. UTI. SEVERE MALNUTRITION. 97.3 114 20 107/57 93% ON RA BG 68 IS;MEGACE PO BID K-DUR PO QD ATIVAN IM Q4 HRS PRN ZYPREXA PO HS MED SURG STATUS DCP;FROM [facility];PEG PLACEMENT PENDING BIOETHIC COMMITTEE CASE MANAGEMENT:REVIEW 02/05/2020 SI;AC TOXIC MET ENCEPHALOPATHY. UTI. SEVERE MALNUTRITION. 98.9 110 12 94% ON RA NO LABS AVAILABLE IS;MEGACE PO BID K-DUR PO QD ATIVAN IM Q4 HRS PRN ZYPREXA PO HS MED SURG STATUS DCP;FROM [facility] PLAN;PEG PLACEMENT
--- NOTE | 2020-02-07 14:01 | NUR ---
SWALLOW STATUS: PATIENT SEEN FOR DYSPHAGIA, SEE SWALLOW EVAL REPORT. PATIENT'S GOALS FOR INTAKE NOT MET (EITHER REFUSES OR POOR PO AT 0/25/50%) ON LIQUIFIED PUREED LIKE NECTAR THICK SOUP CONSISTENCY. PER STAFF, PATIENT DISLIKES DIET LEVEL BUT PATIENT IS NOT ALERT FOR PO TRIALS FOR UPGRADES. PER MIGUEL A MCKEON, THE PATIENT IS SPITTING OUT HER CRUSHED MEDS WITH APPLESAUCE. RN ALSO SAID THAT THE PATIENT IS BEING CONSIDERED FOR A PEG. PATIENT HAS ADULT FTT AND SEVERE PROTEIN-CALORIE MALNUTRITION AND IS NOT DRINKING HER NECTAR THICK LIQUIDS. GOALS MET FOR NEW STAFF (MIKE GRADY) EDUCATED/TRAINED IN POSTED PRECAUTIONS. WILL HOLD ON MODIFIED BARIUM SWALLOW STUDY FOR NOW SINCE SHE IS NOT USUALLY RECEPTIVE TO PO TRIALS. PER RN, PATIENT IS NPO POST MIDNIGHT FOR EGD. PLAN: CONTINUE WITH CURRENT DIET/LIQUIDS AND HIGH CALORIE SUPPLEMENTS (ON CALORIE COUNT) SINCE NOT ALERT FOR UPGRADES. ORAL CARE/SUCTION IF RECEPTIVE HOLD ON MOD BARIUM SWALLOW STUDY FOR NOW Addendum: 02/07/20 at 1404 by CHRIS BOO INTERNATIONAL REPRESENTATIVE NOT SEEN SINCE 02/02/20 EVALUATION DUE TO SCHEDULE CONFLICTS OR PATIENT NOT ALERT.
[2020-02-07 16:00] VITALS: BP 134/72
--- NOTE | 2020-02-07 19:45 | NUR ---
HAND-OFF: Report given to allison.
[2020-02-07 20:00] VITALS: BP 137/77
--- NOTE | 2020-02-07 20:00 | NUR ---
NURSE NOTES: Received patient awake in bed, confused, trying to climb off bed, recentered in bed with charge nurse. Will hold heparin for PEG placement in AM. Bed alarm on, 3 side rails up. IV access on TKO.
[2020-02-07] MEDS: ZyPREXA Zydis 10mg tab ORAL SCH (20:07)
--- NOTE | 2020-02-07 22:31 | Neurology Progress Note ---
Interim History Interim History Interim History no new deficits Objective Physical Exam Last Vital Signs Date Time Temp Pulse Resp B/P (MAP) Pulse Ox O2 Delivery O2 Flow Rate FiO2 02/07/20 20:00 98.3 89 21 137/77 (97) 97 02/06/20 21:47 Room Air Gucci Weber MD Feb 07, 2020 22:31
[2020-02-08] VITALS (10 sets, daily range): BP systolic 120–143; BP diastolic 63–93
[2020-02-08] MEDS: Heparin 5000 units/ml inj SUBQ SCH ×3 (01:37→21:08)
--- NOTE | 2020-02-08 03:29 | Progress Note ---
DATE: 01/29/2020 SUBJECTIVE: The patient is in bed, no acute distress noted. The patient had swallow evaluation due to the patient's poor by mouth intake, now is depressed withdrawn. She is more depressed than her baseline at [facility]. MENTAL STATUS EXAMINATION: The patient is awake, minimally verbal. Mood is depressed. Affect is constricted. Congruent mood. Thought process is concrete. Thought content, no suicidal or homicidal ideation. Cognition is impaired. Insight and judgment, impaired. ASSESSMENT: 1. Psychotic disorder. 2. Failure to thrive. PLAN: 1. We will continue current medications. 2. Zyprexa 10 mg. Lynda Owen M.D. DR: Markus JOB#: [id number] CC:
[2020-02-08 07:09] LABS: ALANINE AMINOTRANSFERASE 65 U/L (12-78); ALBUMIN 3.7 G/DL (3.4-5.0); ALKALINE PHOSPHATASE 87 U/L (46-116); ASPARTATE AMINO TRANSFERASE 21 U/L (15-37); BILIRUBIN,DIRECT 0.2 MG/DL (0.0-0.3); BILIRUBIN,TOTAL 0.4 MG/DL (0.2-1.0); PHOSPHORUS 4.4 MG/DL (2.5-4.9)
[2020-02-08 07:11] LABS: ANION GAP 12 mmol/L (5-15); BLOOD UREA NITROGEN 21 mg/dL (7-18); CALCIUM 9.9 MG/DL (8.5-10.1); CARBON DIOXIDE 23 MMOL/L (21-32); CHLORIDE 108 MMOL/L (98-107); CREATININE 0.6 MG/DL (0.55-1.30); POTASSIUM 4.3 MMOL/L (3.5-5.1); SODIUM 143 MMOL/L (136-145)
[2020-02-08 07:22] LABS: EOSINOPHILS % (AUTO) 8.7 % (0.0-3.0); HEMATOCRIT 40.2 % (37.0-47.0); HEMOGLOBIN 14.1 G/DL (12.0-16.0); INR 0.9 (0.9-1.1); LYMPHOCYTES % (AUTO) 34.4 % (20.0-45.0); MEAN CORPUSCULAR VOLUME 89 FL (80-99); MONOCYTES % (AUTO) 9.1 % (1.0-10.0); NEUTROPHILS % (AUTO) 46.9 % (45.0-75.0); PLATELET COUNT 320 K/UL (150-450); RED BLOOD COUNT 4.54 M/UL (4.20-5.40); RED CELL DISTRIBUTION WIDTH 11.9 % (11.6-14.8); WHITE BLOOD COUNT 9.1 K/UL (4.8-10.8)
--- NOTE | 2020-02-08 07:31 | NUR ---
HAND-OFF: Report given to MIKE Garrett.
--- NOTE | 2020-02-08 08:40 | NUR ---
NURSE NOTES: pt is in the bed awake, breathing even and non-labored. skin is warm and dry to touch. no acute distress noted at this time. place call light within reach.
[2020-02-08] MEDS ORDERED: cefOXitin 1gm Inj ONE (10:33)
--- NOTE | 2020-02-08 10:43 | General Progress Note ---
Assessment/Plan Assessment/Plan: 64-year-old female from [facility] w/PMH encephalopathy, UTI, anemia, atherosclerosis of aorta who presents with acute altered mentation, fevers and failure to thrive. Pt found to be septic, temperature 100.9, HR 120, RR 24, sepsis bolus was given in the ED, Vanc, Zosyn, gentamicin were given. #Acute Toxic Metabolic Encephalopathy 2/2 #Severe Sepsis, POA #UTI -Cont. inpatient medical care, cardiac monitoring -COVID NEGATIVE, Flu A/B negative -BCx growing Staph epi -UCx E. coli -s/p 7 days of meropenem -Pulm and ID following #Hypernatremia, resolved #Dehydration #elevated Hgb/Hct - likely 2/2 hemoconcentration -likely 2/2 dehydration -S/p D5W -monitor BMP -Renal following #Sinus Tachycardia - resolved -Likely multifactorial, 2/2 sepsis/dehydration -seen on EKG sinus tachycardia, HR 137, non-specific ST abnormalities -CXR negative for acute process -improved with volume expansion -cont. to monitor #Transaminitis - resolved -likely 2/2 sepsis -Abd US equivocal -Hepatitis panel negative #Severe protein calorie malnutrition #Physical Deconditioning #Dysphagia -Dietitian and TECHNICAL SPECIALIST eval -PT/OT -02/07 s/p Peg placement by GI -will start TF per GI Dispo: likely d/c back to SNF tomorrow DVT PPx: lovenox Time spent on encounter: 36 mins, >50% on counseling, coordination of care. Time of note doesn't reflect time of encounter. Subjective Allergies: Coded Allergies: No Known Allergies (Unverified , 01/29/20) Subjective f/u for sepsis/acute metabolic encephalopathy, UTI s/p abx. Pt FTT needs PEG tube. Pt awake, comfortable s/p PEG tube placement. Objective Last 24 Hour Vital Signs Date Time Temp Pulse Resp B/P (MAP) Pulse Ox O2 Delivery O2 Flow Rate FiO2 02/08/20 08:00 98.2 78 18 127/64 (85) 97 02/08/20 04:00 98.7 77 18 129/79 (96) 97 02/07/20 23:56 Room Air 02/07/20 20:00 98.3 89 21 137/77 (97) 97 02/07/20 16:00 98.7 79 20 134/72 (92) 98 02/07/20 12:00 98.9 72 19 128/74 (92) 98 Intake and Output 02/07/20 02/08/20 19:00 07:00 Intake Total 460 ml Output Total 600 ml 250 ml Balance -140 ml -250 ml Intake Oral 460 ml Output Urine Total 600 ml 250 ml Laboratory Tests 02/08/20 05:40: White Blood Count 9.1, Red Blood Count 4.54, Hemoglobin 14.1, Hematocrit 40.2, Mean Corpuscular Volume 89, Mean Corpuscular Hemoglobin 31.1H, Mean Corpuscular Hemoglobin Concent 35.1, Red Cell Distribution Width 11.9, Platelet Count 320, Mean Platelet Volume 5.8L, Neutrophils (%) (Auto) 46.9, Lymphocytes (%) (Auto) 34.4, Monocytes (%) (Auto) 9.1, Eosinophils (%) (Auto) 8.7H, Basophils (%) (Auto ) 1.0, Prothrombin Time 9.7, Prothromb Time International Ratio 0.9, Sodium Level 143, Potassium Level 4.3, Chloride Level 108H, Carbon Dioxide Level 23, Anion Gap 12, Blood Urea Nitrogen 21H, Creatinine 0.6, Estimat Glomerular Filtration Rate > 60, Glucose Level 87, Uric Acid 4.1, Calcium Level 9.9, Phosphorus Level 4.4, Magnesium Level 2.0, Total Bilirubin 0.4, Direct Bilirubin 0.2, Aspartate Amino Transf (AST/SGOT) 21, Alanine Aminotransferase ( ALT/SGPT) 65, Alkaline Phosphatase 87, Total Protein 7.3, Albumin 3.7 Height (Feet): 5 Height (Inches): 4.00 Weight (Pounds): 99 Objective General: NAD, awake, alert, A&O x 1 at b/l, aphasic HEENT: NCAT, EOMi, MMM CV: RRR, no murmurs, rubs, or gallops Pulm: CTAB, No wheezes, rhonchi, or rales, no accessory muscle usage GI: Soft, nontender, abd binder in place w/PEG underneath Ext: No lower extremity edema bilaterally Linsey Ramirez M.D. Feb 08, 2020 10:43
[2020-02-08] MEDS ORDERED: DiphenhydrAMINE 50mg/ml Inj IVP PRN (10:45)
[2020-02-08] MEDS: Ascorbic Acid 500mg tab ORAL SCH ×2 (10:45→17:52)
[2020-02-08] MEDS: Megace 400mg/10ml Susp ORAL SCH (10:45)
[2020-02-08] MEDS ORDERED: fentaNYL 100 mcg/2 mL IV PRN (10:45)
[2020-02-08] MEDS ORDERED: Midazolam 2mg/2ml Inj IVP PRN (10:45)
[2020-02-08] MEDS ORDERED: Atropine Inj 1mg/10ml Syr IV PRN (10:45)
--- NOTE | 2020-02-08 11:00 | Pre-Procedure Note/Attestation ---
Pre-Procedure Note/Attestation Complete Prior to Procedure Planned Procedure: not applicable Procedure Narrative: egd/peg Indications for Procedure Pre-Operative Diagnosis: dysphagia Attestation I attest that I discussed the nature of the procedure; its benefits; risks and complications; and alternatives (and the risks and benefits of such alternatives ), prior to the procedure, with the patient (or the patient's legal event marketing representative). I attest that, if there was a reasonable possibility of needing a blood transfusion, the patient (or the patient's legal event marketing representative) was given the [facility] standardized written summary, pursuant to the [place] Blood Safety Act ([place] Health and Safety Code # 1645, as amended). I attest that I re-evaluated the patient just prior to the surgery and that there has been no change in the patient's H&P, except as documented below: Min Salazar MD Feb 08, 2020 11:00
--- NOTE | 2020-02-08 11:02 | NUR ---
CASE MANAGEMENT: REVIEW SI: SEPSIS . UNSTAGEABLE DECUBITUS ULCER SACRAL . DYSPHAGIA T 98.2 HR 78 RR 18 BP 127/64 SAT 97% ROOM AIR CHLORIDE 108 BUN 21 IS: NS IVF @ 10ML/HR NPO EGD w/PEG PLACEMENT PENDING MED/SURG UNIT STATUS DCP: PATIENT IS FROM [facility]
--- NOTE | 2020-02-08 11:02 | Pulmonology Progress Note ---
Assessment/Plan Assessment/Plan IMPRESSION: 1. UTI. esbl e coli 2. Severe hypernatremia. improved 3. Rule out COVID-19. Negative x 1 4. detention resident. 5. Hypertension. DISCUSSION: Will continue oxygen p.r.n. Continue broad-spectrum antibiotics I will follow carefully. Subjective Interval Events: None new Constitutional: Reports: no symptoms HEENT: Repors: no symptoms Respiratory: Reports: no symptoms Cardiovascular: Reports: no symptoms Allergies: Coded Allergies: No Known Allergies (Unverified , 01/29/20) Objective Last 24 Hour Vital Signs Date Time Temp Pulse Resp B/P (MAP) Pulse Ox O2 Delivery O2 Flow Rate FiO2 02/08/20 10:46 78 127/64 02/08/20 08:00 98.2 78 18 127/64 (85) 97 02/08/20 04:00 98.7 77 18 129/79 (96) 97 02/07/20 23:56 Room Air 02/07/20 20:00 98.3 89 21 137/77 (97) 97 02/07/20 16:00 98.7 79 20 134/72 (92) 98 02/07/20 12:00 98.9 72 19 128/74 (92) 98 Intake and Output 02/07/20 02/08/20 19:00 07:00 Intake Total 460 ml Output Total 600 ml 250 ml Balance -140 ml -250 ml Intake Oral 460 ml Output Urine Total 600 ml 250 ml General Appearance: no acute distress HEENT: normocephalic Respiratory/Chest: chest wall non-tender, lungs clear Cardiovascular: normal peripheral pulses, normal rate Abdomen: normal bowel sounds Laboratory Tests 02/08/20 05:40: White Blood Count 9.1, Red Blood Count 4.54, Hemoglobin 14.1, Hematocrit 40.2, Mean Corpuscular Volume 89, Mean Corpuscular Hemoglobin 31.1H, Mean Corpuscular Hemoglobin Concent 35.1, Red Cell Distribution Width 11.9, Platelet Count 320, Mean Platelet Volume 5.8L, Neutrophils (%) (Auto) 46.9, Lymphocytes (%) (Auto) 34.4, Monocytes (%) (Auto) 9.1, Eosinophils (%) (Auto) 8.7H, Basophils (%) (Auto ) 1.0, Prothrombin Time 9.7, Prothromb Time International Ratio 0.9, Sodium Level 143, Potassium Level 4.3, Chloride Level 108H, Carbon Dioxide Level 23, Anion Gap 12, Blood Urea Nitrogen 21H, Creatinine 0.6, Estimat Glomerular Filtration Rate > 60, Glucose Level 87, Uric Acid 4.1, Calcium Level 9.9, Phosphorus Level 4.4, Magnesium Level 2.0, Total Bilirubin 0.4, Direct Bilirubin 0.2, Aspartate Amino Transf (AST/SGOT) 21, Alanine Aminotransferase ( ALT/SGPT) 65, Alkaline Phosphatase 87, Total Protein 7.3, Albumin 3.7 Current Medications Medications (Trade) Dose Ordered Sig/Tory Route PRN Reason Start Time Stop Time Status Last Admin Dose Admin Acetaminophen (Tylenol) 650 mg Q4H PRN ORAL Mild Pain (Pain Scale 1-3) 02/08/20 10:45 02/08/20 16:00 Acetaminophen (Tylenol) 650 mg Q4H PRN ORAL For Pain 01/31/20 14:00 02/28/20 13:59 Al Hydroxide/Mg Hydroxide (Mylanta) 15 ml Q1H PRN ORAL gi upset 02/08/20 10:45 UNV Amlodipine Besylate (Norvasc) 5 mg DAILY ORAL 02/01/20 09:00 02/29/20 08:59 02/08/20 10:46 Ascorbic Acid (Vitamin C) 250 mg TWICE A DAY ORAL 02/02/20 18:00 03/03/20 17:59 02/08/20 10:45 Atropine Sulfate (Atropine) 0.5 mg Q5M PRN IV bpm less than 45 02/08/20 10:45 UNV Dextrose (Dextrose 50%) 25 ml Q30M PRN IV Hypoglycemia 01/31/20 13:00 04/28/20 13:59 Dextrose (Dextrose 50%) 50 ml Q30M PRN IV Hypoglycemia 01/31/20 13:00 04/28/20 13:59 Diphenhydramine HCl (Benadryl) 25 mg Q15M PRN IVP Itching 02/08/20 10:45 UNV Fentanyl Citrate (Sublimaze 100 mcg/2 mL) 25 mcg Q10M PRN IV Moderate Pain (Pain Scale 4-6) 02/08/20 10:45 02/08/20 16:00 Fish Oil (Fish Oil) 1,000 mg BID ORAL 01/31/20 18:00 03/01/20 17:59 02/08/20 10:46 Folic Acid (Folate) 2 mg DAILY ORAL 02/01/20 09:00 03/01/20 08:59 02/08/20 10:45 Heparin Sodium (Porcine) (Heparin 5000 units/ml) 5,000 units EVERY 8 HOURS SUBQ 02/03/20 14:00 03/19/20 13:59 02/07/20 05:37 Hydralazine HCl (Apresoline) 5 mg Q30M PRN IV SBP>160 OR___/DBP>90 OR___ 02/08/20 10:45 02/08/20 16:00 Lorazepam (Ativan 2mg/ml 1ml) 1 mg Q4H PRN IM For Anxiety 02/02/20 20:15 02/09/20 20:14 Megestrol Acetate (Megace) 400 mg TWICE A DAY ORAL 02/03/20 18:00 05/03/20 17:59 02/08/20 10:45 Midazolam HCl (Versed 2mg/2ml vial) 1 mg Q15M PRN IVP For Anxiety 02/08/20 10:45 02/08/20 16:00 Olanzapine (ZyPREXA Zydis) 10 mg BEDTIME ORAL 02/02/20 21:00 03/18/20 20:59 02/07/20 20:07 Ondansetron HCl (Zofran) 4 mg Q1H PRN IVP Nausea & Vomiting 02/08/20 10:45 02/08/20 16:00 Ondansetron HCl (Zofran) 4 mg Q6H PRN IVP Nausea & Vomiting 01/31/20 13:00 02/28/20 12:59 Potassium Chloride (K-Dur) 40 meq DAILY ORAL 02/01/20 09:00 05/01/20 08:59 02/08/20 10:46 Sodium Chloride 1,000 ml @ 10 mls/hr Q24H IVLG 02/08/20 10:44 02/08/20 16:00 Tip Moreno MD Feb 08, 2020 11:02
[2020-02-08] MEDS ORDERED: NS 500ML IVPB ONE (11:10)
[2020-02-08] MEDS ORDERED: cefOXitin 1gm Inj IVP ONE (11:12)
--- NOTE | 2020-02-08 11:26 | Endoscopy Procedure Note ---
Endoscopy Procedure Note General Indication for Procedure: dysphgaia Procedures Performed: EGD Operative Findings/Diagnosis: same Specimen: none Pt Tolerated Procedure Well: Yes Estimated Blood Loss: none Anesthesia Anesthesiologist: evangelina Anesthesia: MAC Inserted Devices Implant(s) used?: No GI Core Measures 50 yrs or older w/o bx or poly: Not Applicable 10yrs. F/U recommended: Not Applicable Min Salazar MD Feb 08, 2020 11:26
--- NOTE | 2020-02-08 12:03 | Anethesia Preoperative Eval ---
Anesthesia Pre-op PMH/ROS General Date of Evaluation: Feb 08, 2020 Time of Evaluation: 10:35 Anesthesiologist: jorge ASA Score: ASA 4 Mallampati Score Class I : Soft palate, uvula, fauces, pillars visible Class II: Soft palate, uvula, fauces visible Class III: Soft palate, base of uvula visible Class IV: Only hard plate visible Mallampati Classification: Class II Surgeon: cruz Diagnosis: severe protein/calorie malnutrition Surgical Procedure: egd/peg Anesthesia History: none Social History: smoking - nonsmoker Family History: no anesthesia problems Allergies: Coded Allergies: No Known Allergies (Unverified , 01/29/20) Medications: see eMAR Patient NPO?: Yes Past Medical History Cardiovascular: Reports: HTN, arrhythmia, other - ashd Gastrointestinal/Genitourinary: Reports: other - malnutrition Neurologic/Psychiatric: Reports: dementia Hematology/Immune: Reports: anemia, other - sepsis Anesthesia Pre-op Phys. Exam Physician Exam Last Vital Signs Date Time Temp Pulse Resp B/P (MAP) Pulse Ox O2 Delivery O2 Flow Rate FiO2 02/08/20 11:50 100 15 131/78 100 Nasal Cannula 3 02/08/20 11:38 97.3 Constitutional: NAD Neurologic: CN 2-12 intact Cardiovascular: other - tachycardia Respiratory: CTA Gastrointestinal: S/NT/ND Airway Exam Mallampati Score: Class II MO: limited Neck: flexible TMD: 2fb ROM: limited Teeth: missing Anesthesia Pre-op A/P Labs Hematology Test 02/08/20 05:40 White Blood Count 9.1 K/UL (4.8-10.8) Red Blood Count 4.54 M/UL (4.20-5.40) Hemoglobin 14.1 G/DL (12.0-16.0) Hematocrit 40.2 % (37.0-47.0) Mean Corpuscular Volume 89 FL (80-99) Mean Corpuscular Hemoglobin 31.1 PG (27.0-31.0) H Mean Corpuscular Hemoglobin Concent 35.1 G/DL (32.0-36.0) Red Cell Distribution Width 11.9 % (11.6-14.8) Platelet Count 320 K/UL (150-450) Mean Platelet Volume 5.8 FL (6.5-10.1) L Neutrophils (%) (Auto) 46.9 % (45.0-75.0) Lymphocytes (%) (Auto) 34.4 % (20.0-45.0) Monocytes (%) (Auto) 9.1 % (1.0-10.0) Eosinophils (%) (Auto) 8.7 % (0.0-3.0) H Basophils (%) (Auto) 1.0 % (0.0-2.0) Coagulation Test 02/08/20 05:40 Prothrombin Time 9.7 SEC (9.30-11.50) Prothromb Time International Ratio 0.9 (0.9-1.1) Chemistry Test 02/08/20 05:40 Sodium Level 143 MMOL/L (136-145) Potassium Level 4.3 MMOL/L (3.5-5.1) Chloride Level 108 MMOL/L (98-107) H Carbon Dioxide Level 23 MMOL/L (21-32) Anion Gap 12 mmol/L (5-15) Blood Urea Nitrogen 21 mg/dL (7-18) H Creatinine 0.6 MG/DL (0.55-1.30) Estimat Glomerular Filtration Rate > 60 mL/min (>60) Glucose Level 87 MG/DL (74-106) Uric Acid 4.1 MG/DL (2.6-7.2) Calcium Level 9.9 MG/DL (8.5-10.1) Phosphorus Level 4.4 MG/DL (2.5-4.9) Magnesium Level 2.0 MG/DL (1.8-2.4) Total Bilirubin 0.4 MG/DL (0.2-1.0) Direct Bilirubin 0.2 MG/DL (0.0-0.3) Aspartate Amino Transf (AST/SGOT) 21 U/L (15-37) Alanine Aminotransferase (ALT/SGPT) 65 U/L (12-78) Alkaline Phosphatase 87 U/L (46-116) Total Protein 7.3 G/DL (6.4-8.2) Albumin 3.7 G/DL (3.4-5.0) Risk Assessment & Plan Assessment: asa4 Plan: mac Status Change Before Surgery: No Pre-Antibiotics Drug: cefoxitin 1gm Given Within 1 Hr of Incision: Yes Time Given: 10:50 Oliva Bray MD Feb 08, 2020 12:03
--- NOTE | 2020-02-08 12:07 | Immediate Post-Op Evaluation ---
Immediate Post-Op Evalulation Immediate Post-Op Evalulation Procedure: egd/peg Date of Evaluation: Feb 08, 2020 Time of Evaluation: 11:50 IV Fluids: 250ml 0.9ns Blood Products: none Estimated Blood Loss: negligible Blood Pressure Systolic: 121 Blood Pressure Diastolic: 76 Pulse Rate: 102 Respiratory Rate: 18 O2 Sat by Pulse Oximetry: 100 Temperature (Fahrenheit): 97.2 Pain Score (1-10): 0 Nausea: No Vomiting: No Complications none Patient Status: awake, reacts, patent Hydration Status: adequate Drug: cefoxitin 1gm Given Within 1 Hr of Incision: Yes Time Given: 10:50 Oliva Bray MD Feb 08, 2020 12:07
--- NOTE | 2020-02-08 12:08 | 48 Hour Post Anesthesia Eval ---
Post Anesthesia Evaluation Procedure: egd/peg Date of Evaluation: Feb 08, 2020 Time of Evaluation: 11:52 Blood Pressure Systolic: 131 0: 78 Pulse Rate: 100 Respiratory Rate: 18 Temperature (Fahrenheit): 97.2 O2 Sat by Pulse Oximetry: 100 Airway: patent Nausea: No Vomiting: No Pain Intensity: 0 Hydration Status: adequate Cardiopulmonary Status: stable Mental Status/LOC: patient returned to baseline Post-Anesthesia Complications: none Follow-up care needed: N/A Oliva Bray MD Feb 08, 2020 12:08
--- NOTE | 2020-02-08 13:59 | Surgery Progress Note ---
Surgery Progress Note Subjective Additional Comments PEG discussed with GI plan for tf soon confused labs noted Objective Last 24 Hour Vital Signs Date Time Temp Pulse Resp B/P (MAP) Pulse Ox O2 Delivery O2 Flow Rate FiO2 02/08/20 12:25 86 13 121/65 100 Room Air 02/08/20 12:10 78 13 121/64 100 Nasal Cannula 3 02/08/20 12:08 100 18 100 02/08/20 12:07 102 18 100 02/08/20 12:00 97 13 120/63 100 Nasal Cannula 3 02/08/20 11:50 100 15 131/78 100 Nasal Cannula 3 02/08/20 11:45 100 14 137/77 100 Nasal Cannula 3 02/08/20 11:38 97.3 101 15 132/76 100 Nasal Cannula 3 02/08/20 10:46 78 127/64 02/08/20 08:00 98.2 78 18 127/64 (85) 97 02/08/20 04:00 98.7 77 18 129/79 (96) 97 02/07/20 23:56 Room Air 02/07/20 20:00 98.3 89 21 137/77 (97) 97 02/07/20 16:00 98.7 79 20 134/72 (92) 98 I&O Intake and Output 02/07/20 02/08/20 19:00 07:00 Intake Total 460 ml Output Total 600 ml 250 ml Balance -140 ml -250 ml Intake Oral 460 ml Output Urine Total 600 ml 250 ml Dressing: saturated Wound: other Drains: other Cardiovascular: RSR Respiratory: decreased breath sounds Abdomen: soft, non-tender, present bowel sounds Extremities: no tenderness, no cyanosis Laboratory Tests Test 02/08/20 05:40 White Blood Count 9.1 K/UL (4.8-10.8) Red Blood Count 4.54 M/UL (4.20-5.40) Hemoglobin 14.1 G/DL (12.0-16.0) Hematocrit 40.2 % (37.0-47.0) Mean Corpuscular Volume 89 FL (80-99) Mean Corpuscular Hemoglobin 31.1 PG (27.0-31.0) H Mean Corpuscular Hemoglobin Concent 35.1 G/DL (32.0-36.0) Red Cell Distribution Width 11.9 % (11.6-14.8) Platelet Count 320 K/UL (150-450) Mean Platelet Volume 5.8 FL (6.5-10.1) L Neutrophils (%) (Auto) 46.9 % (45.0-75.0) Lymphocytes (%) (Auto) 34.4 % (20.0-45.0) Monocytes (%) (Auto) 9.1 % (1.0-10.0) Eosinophils (%) (Auto) 8.7 % (0.0-3.0) H Basophils (%) (Auto) 1.0 % (0.0-2.0) Prothrombin Time 9.7 SEC (9.30-11.50) Prothromb Time International Ratio 0.9 (0.9-1.1) Sodium Level 143 MMOL/L (136-145) Potassium Level 4.3 MMOL/L (3.5-5.1) Chloride Level 108 MMOL/L (98-107) H Carbon Dioxide Level 23 MMOL/L (21-32) Anion Gap 12 mmol/L (5-15) Blood Urea Nitrogen 21 mg/dL (7-18) H Creatinine 0.6 MG/DL (0.55-1.30) Estimat Glomerular Filtration Rate > 60 mL/min (>60) Glucose Level 87 MG/DL (74-106) Uric Acid 4.1 MG/DL (2.6-7.2) Calcium Level 9.9 MG/DL (8.5-10.1) Phosphorus Level 4.4 MG/DL (2.5-4.9) Magnesium Level 2.0 MG/DL (1.8-2.4) Total Bilirubin 0.4 MG/DL (0.2-1.0) Direct Bilirubin 0.2 MG/DL (0.0-0.3) Aspartate Amino Transf (AST/SGOT) 21 U/L (15-37) Alanine Aminotransferase (ALT/SGPT) 65 U/L (12-78) Alkaline Phosphatase 87 U/L (46-116) Total Protein 7.3 G/DL (6.4-8.2) Albumin 3.7 G/DL (3.4-5.0) Plan Problems: (1) Decubitus skin ulcer Assessment & Plan: Patient presented on admission with large sacral deep tissue injury unstageable decubitus ulcer. Noted to have 2 areas of epidermal breakdown with underlying tissue was purple and pink somewhat blanchable in certain areas. No signs of active infection noted mild discomfort reported with palpation No underlying fluctuance identified Seemingly newly formed and will need to be monitored closely for further breakdown. Treatment plan Wash sacral decubitus ulcer daily with normal saline. Apply skin protectant and foam dressing. Will need to monitor closely for further breakdown. Unable to stage exact course of disease at this time given the deep tissue injury along with unstageable area of breakdown. Turn every 2 hours Offload pressure and heels with pillow Heel protectors Nutritional optimization patient's BMI and albumin low. Nutritional input appreciated Air mattress We will follow with recommendations thank you (2) Sepsis Assessment & Plan: Gallbladder is unremarkable, without stones, wall thickening , nor pericholecystic fluid. Sonographic Vallecillo's sign is negative. Common bile duct measures 7 mm in diameter. No intrahepatic biliary ductal dilatation. Liver demonstrates normal echogenicity, no focal abnormality. Portal vein and hepatic veins are patent. Pancreas is unremarkable. Spleen is unremarkable. Left kidney measures 11.6 cm in length. Right kidney measures 9.9 cm length. Both kidneys demonstrate normal echogenicity. There is no hydronephrosis. No focal abnormality . Abdominal aorta is partially obscured by bowel gas, visualized portions are non-aneurysmal . Impression: Mildly ectatic common bile duct, may be age-related but downstream obstruction not completely excludable. Correlate with liver function tests, consider MRCP for further evaluation if clinically indicated Negative for gallstones or other significant abnormality. Note nonvisualization of the distal abdominal aorta likely UTI no abd pathology decubitus not infected labs improved overall improved d/c planning (3) UTI (urinary tract infection) Assessment & Plan: on abx as per ID (4) Acute metabolic encephalopathy (5) Dehydration (6) Hypernatremia (7) Severe protein-calorie malnutrition Assessment & Plan: DAILY ESTIMATED NEEDS: Needs based on Wound 60kg abw 25-30 kcals/kg 7791-3930 total kcals 1.25-1.5 g protein/kg 75-90 g total protein 25-30 mL/kg 8845-2610 total fluid mLs NUTRITION DIAGNOSIS: Increased pro needs r/t wound healing as evidenced by sacral unstageable wound. CURRENT DIET:Regular puree PO DIET RECOMMENDATIONS: Maintain Regular liberalized diet w/ poor intake ADDITIONAL RECOMMENDATIONS: 1) Rec WOOLEN TESTER eval for appropriate texture for improved acceptance 2) Add Ensure 1 bottle w/ meals 3) Wound care: Add BEATRIZ BID + Vit C 250mg BID F/up w/ WC eval 4) Maintain calibrated bed scale wts 5) Monitor BG, need for hypoglycemics Pavan Maddox Feb 08, 2020 13:59
--- NOTE | 2020-02-08 16:27 | NUR ---
pt returns to the unit with new PEG placement, no bleeding noted on site. abdominal binder is in-place
--- NOTE | 2020-02-08 18:30 | Nephrology Progress Note ---
Assessment/Plan Problem List: (1) Hypernatremia (2) Dehydration (3) UTI (urinary tract infection) (4) Acute metabolic encephalopathy (5) Sepsis Assessment Renal impression: Patient has hypernatremia which is indicative of free water depletion, meanwhile elevated hemoglobin indicative of hemoconcentration due to dehydration Other significant conditions: Sepsis/UTI COVID exposure, pending rule out Toxic metabolic encephalopathy UTI History of hypertension Plan Poor p.o. intake GT is to be done today, Suggestions: Discontinue D5W as serum sodium normalized Folic acid p.o. Fish oil for high triglycerides Monitor serum sodium and renal parameters Antibiotics Keep the blood pressure in check Per consultants Remains stable from renal standpoint to view Subjective ROS Limited/Unobtainable: No Constitutional: Reports: malaise, weakness Objective Objective Last 24 Hour Vital Signs Date Time Temp Pulse Resp B/P (MAP) Pulse Ox O2 Delivery O2 Flow Rate FiO2 02/08/20 16:00 98.9 20 143/93 (110) 98 02/08/20 12:25 86 13 121/65 100 Room Air 02/08/20 12:10 78 13 121/64 100 Nasal Cannula 3 02/08/20 12:08 100 18 100 02/08/20 12:07 102 18 100 02/08/20 12:00 97 13 120/63 100 Nasal Cannula 3 02/08/20 11:50 100 15 131/78 100 Nasal Cannula 3 02/08/20 11:45 100 14 137/77 100 Nasal Cannula 3 02/08/20 11:38 97.3 101 15 132/76 100 Nasal Cannula 3 02/08/20 10:46 78 127/64 02/08/20 08:00 98.2 78 18 127/64 (85) 97 02/08/20 04:00 98.7 77 18 129/79 (96) 97 02/07/20 23:56 Room Air 02/07/20 20:00 98.3 89 21 137/77 (97) 97 Intake and Output 02/07/20 02/08/20 19:00 07:00 Intake Total 460 ml Output Total 600 ml 250 ml Balance -140 ml -250 ml Intake Oral 460 ml Output Urine Total 600 ml 250 ml Current Medications Medications (Trade) Dose Ordered Sig/Tory Route PRN Reason Start Time Stop Time Status Last Admin Dose Admin Acetaminophen (Tylenol) 650 mg Q4H PRN ORAL For Pain 01/31/20 14:00 02/28/20 13:59 Amlodipine Besylate (Norvasc) 5 mg DAILY ORAL 02/01/20 09:00 02/29/20 08:59 02/08/20 10:46 Ascorbic Acid (Vitamin C) 250 mg TWICE A DAY ORAL 02/02/20 18:00 03/03/20 17:59 02/08/20 17:52 Dextrose (Dextrose 50%) 25 ml Q30M PRN IV Hypoglycemia 01/31/20 13:00 04/28/20 13:59 Dextrose (Dextrose 50%) 50 ml Q30M PRN IV Hypoglycemia 01/31/20 13:00 04/28/20 13:59 Fish Oil (Fish Oil) 1,000 mg BID ORAL 01/31/20 18:00 03/01/20 17:59 02/08/20 17:52 Folic Acid (Folate) 2 mg DAILY ORAL 02/01/20 09:00 03/01/20 08:59 02/08/20 10:45 Heparin Sodium (Porcine) (Heparin 5000 units/ml) 5,000 units EVERY 8 HOURS SUBQ 02/03/20 14:00 03/19/20 13:59 02/07/20 05:37 Lansoprazole (Prevacid) 30 mg DAILY GT 02/09/20 09:00 03/10/20 08:59 Lorazepam (Ativan 2mg/ml 1ml) 1 mg Q4H PRN IM For Anxiety 02/02/20 20:15 02/09/20 20:14 Olanzapine (ZyPREXA Zydis) 10 mg BEDTIME ORAL 02/02/20 21:00 03/18/20 20:59 02/07/20 20:07 Ondansetron HCl (Zofran) 4 mg Q6H PRN IVP Nausea & Vomiting 01/31/20 13:00 02/28/20 12:59 Potassium Chloride (K-Dur) 40 meq DAILY ORAL 02/01/20 09:00 05/01/20 08:59 02/08/20 10:46 Laboratory Tests 02/08/20 05:40: White Blood Count 9.1, Red Blood Count 4.54, Hemoglobin 14.1, Hematocrit 40.2, Mean Corpuscular Volume 89, Mean Corpuscular Hemoglobin 31.1H, Mean Corpuscular Hemoglobin Concent 35.1, Red Cell Distribution Width 11.9, Platelet Count 320, Mean Platelet Volume 5.8L, Neutrophils (%) (Auto) 46.9, Lymphocytes (%) (Auto) 34.4, Monocytes (%) (Auto) 9.1, Eosinophils (%) (Auto) 8.7H, Basophils (%) (Auto ) 1.0, Prothrombin Time 9.7, Prothromb Time International Ratio 0.9, Sodium Level 143, Potassium Level 4.3, Chloride Level 108H, Carbon Dioxide Level 23, Anion Gap 12, Blood Urea Nitrogen 21H, Creatinine 0.6, Estimat Glomerular Filtration Rate > 60, Glucose Level 87, Uric Acid 4.1, Calcium Level 9.9, Phosphorus Level 4.4, Magnesium Level 2.0, Total Bilirubin 0.4, Direct Bilirubin 0.2, Aspartate Amino Transf (AST/SGOT) 21, Alanine Aminotransferase ( ALT/SGPT) 65, Alkaline Phosphatase 87, Total Protein 7.3, Albumin 3.7 Height (Feet): 5 Height (Inches): 4.00 Weight (Pounds): 99 General Appearance: no apparent distress Respiratory/Chest: decreased breath sounds Abdomen: other - PEG Objective No change Shawn Ferguson MD Feb 08, 2020 18:30
--- NOTE | 2020-02-08 19:37 | NUR ---
HAND-OFF: Report given to allison.
--- NOTE | 2020-02-08 19:40 | NUR ---
NURSE NOTES: Receive patient in bed in stable condition. NO sob, no fever, no complain of pain, and vitals are stable. Patient has Gtube that initiated tofsenia Addendum: 02/08/20 at 2020 by JOEY BRADEN RN unfinished note
--- NOTE | 2020-02-08 19:40 | NUR ---
NURSE NOTES: Receive patient in bed in stable condition. NO sob, no fever, no complain of pain, and vitals are stable. Patient has Gtube that initiated today. Bed is in the lower position , locked and alarm is on. Call light within reach. We will keep monitoring.
--- NOTE | 2020-02-08 19:59 | Procedure Note ---
DATE OF PROCEDURE: 02/08/2020 SURGEON: Min Salazar M.D. PROCEDURE: Upper endoscopy with PEG placement. ANESTHESIA: Per Dr. Cook. INSTRUMENT: Olympus adult flexible upper endoscope. INDICATIONS: Dysphagia. REASON FOR PROCEDURE: The procedure, risks, benefits, and possible consequences, including hemorrhage, aspiration, perforation and infection, and alternative treatments, were explained to the patient/legal guardian by Dr. Min Salazar and the patient/legal guardian understood and accepted these risks. DESCRIPTION OF PROCEDURE: After informed consent was obtained and the patient was adequately sedated, Olympus upper endoscope was advanced from mouth into the second portion of the duodenum and retroflexion was performed in the stomach. The patient had 1 shallow gastric ulceration. Then, under endoscopic guidance, under sterile condition, a 20-Swedish pull type of G-tube was successfully placed in the gastric area. The distance from the tip of the tube to skin was about 2 cm. The patient tolerated procedure without any complication. SUMMARY OF FINDINGS: 1. Gastric ulceration, shallow. 2. Successful PEG placement. RECOMMENDATIONS: 1. Abdominal binder. 2. Elevate head of the bed at all times. 3. G-tube flush. 4. G-tube care. 5. Start tube feeding later today. 6. The patient received dose of antibiotics prior to this procedure. Given gastric ulcer, we started the patient on Prevacid 30 mg daily. I want to thank, Dr. Ortiz, for this kind referral. Min Salazar M.D. DR: TESHA JOB#: [id number] CC: Orlin Ortiz M.D.; Fax#: [phone]
--- NOTE | 2020-02-08 20:42 | Neurology Progress Note ---
Interim History Interim History ROS Limited/Unobtainable: No Interim History more responsive Objective Physical Exam Last Vital Signs Date Time Temp Pulse Resp B/P (MAP) Pulse Ox O2 Delivery O2 Flow Rate FiO2 02/08/20 16:00 98.9 20 143/93 (110) 98 02/08/20 12:25 86 Room Air 02/08/20 12:10 3 Laboratory Tests Test 02/08/20 05:40 White Blood Count 9.1 K/UL (4.8-10.8) Red Blood Count 4.54 M/UL (4.20-5.40) Hemoglobin 14.1 G/DL (12.0-16.0) Hematocrit 40.2 % (37.0-47.0) Mean Corpuscular Volume 89 FL (80-99) Mean Corpuscular Hemoglobin 31.1 PG (27.0-31.0) H Mean Corpuscular Hemoglobin Concent 35.1 G/DL (32.0-36.0) Red Cell Distribution Width 11.9 % (11.6-14.8) Platelet Count 320 K/UL (150-450) Mean Platelet Volume 5.8 FL (6.5-10.1) L Neutrophils (%) (Auto) 46.9 % (45.0-75.0) Lymphocytes (%) (Auto) 34.4 % (20.0-45.0) Monocytes (%) (Auto) 9.1 % (1.0-10.0) Eosinophils (%) (Auto) 8.7 % (0.0-3.0) H Basophils (%) (Auto) 1.0 % (0.0-2.0) Prothrombin Time 9.7 SEC (9.30-11.50) Prothromb Time International Ratio 0.9 (0.9-1.1) Sodium Level 143 MMOL/L (136-145) Potassium Level 4.3 MMOL/L (3.5-5.1) Chloride Level 108 MMOL/L (98-107) H Carbon Dioxide Level 23 MMOL/L (21-32) Anion Gap 12 mmol/L (5-15) Blood Urea Nitrogen 21 mg/dL (7-18) H Creatinine 0.6 MG/DL (0.55-1.30) Estimat Glomerular Filtration Rate > 60 mL/min (>60) Glucose Level 87 MG/DL (74-106) Uric Acid 4.1 MG/DL (2.6-7.2) Calcium Level 9.9 MG/DL (8.5-10.1) Phosphorus Level 4.4 MG/DL (2.5-4.9) Magnesium Level 2.0 MG/DL (1.8-2.4) Total Bilirubin 0.4 MG/DL (0.2-1.0) Direct Bilirubin 0.2 MG/DL (0.0-0.3) Aspartate Amino Transf (AST/SGOT) 21 U/L (15-37) Alanine Aminotransferase (ALT/SGPT) 65 U/L (12-78) Alkaline Phosphatase 87 U/L (46-116) Total Protein 7.3 G/DL (6.4-8.2) Albumin 3.7 G/DL (3.4-5.0) Impression/Recommendations Problems: (1) Decubitus skin ulcer (2) Anemia (3) FTT (failure to thrive) in adult (4) Sepsis (5) UTI (urinary tract infection) (6) Acute metabolic encephalopathy (7) Dehydration (8) Hypernatremia (9) Severe protein-calorie malnutrition Gucci Weber MD Feb 08, 2020 20:42
[2020-02-08] MEDS: ZyPREXA Zydis 10mg tab ORAL SCH (21:06)
--- NOTE | 2020-02-08 21:55 | NUR ---
NURSE NOTES: Patient tolerating G tube feeding at 50cc, 10 ml residual, will advance to goal of 60cc/hr. Patient left on high fowlers.
[2020-02-09] VITALS: BP 114/65
[2020-02-09 04:00] VITALS: BP 104/51
[2020-02-09] MEDS: Heparin 5000 units/ml inj SUBQ SCH (05:39)
--- NOTE | 2020-02-09 07:40 | NUR ---
NURSE NOTES: RECEIVED PATIENT A/A/OX1, ASLEEP. HOB ELEVATED FOR ASPIRATION PRECAUTIONS. TUBE FEEDINGS TOLERATING WELL. NO GASTRIC RESIDUAL NOTED. GTUBE SITE DRY AND INTACT. ABDOMINAL BINDER APPLIED. NO ACUTE RESP DISTRESS NOTED. VELAZQUEZ CATH INPLACED AND DRAINING WELL. IV SITE PATENT AND INTACT. SIDERAILS ARE UP X3, BED IS IN THE LOWEST POSITION. BRAKES AND LOCK ENGAGED. WILL CONT TO MONITOR.
--- NOTE | 2020-02-09 07:42 | NUR ---
HAND-OFF: Report given to Lamar.
[2020-02-09 08:00] VITALS: BP 135/71
[2020-02-09] MEDS ORDERED: fentaNYL 100 mcg/2 mL IV ONE (08:25)
[2020-02-09] MEDS ORDERED: Lidocaine 1% MPF 10mg/ml 5ml ONE (08:25)
[2020-02-09] MEDS ORDERED: Propofol 200mg/20ml IV ONE (08:25)
[2020-02-09] MEDS ORDERED: ASCORBIC ACID500 M4 ORAL (08:49)
[2020-02-09] MEDS ORDERED: FOLIC ACID1 MG ORAL (08:49)
[2020-02-09] MEDS ORDERED: LANSOPRAZOLE30 MG GT (08:49)
[2020-02-09] MEDS ORDERED: ZYPREXA ZYDIS10 MG ORAL (08:49)
[2020-02-09] MEDS ORDERED: FISH OIL CAP1000 MG ORAL (08:49)
--- NOTE | 2020-02-09 09:02 | General Progress Note ---
Assessment/Plan Problem List: (1) Anemia ICD Codes: D64.9 - Anemia, unspecified SNOMED: 698062081 (2) FTT (failure to thrive) in adult ICD Codes: R62.7 - Adult failure to thrive SNOMED: 128174276 (3) Severe protein-calorie malnutrition ICD Codes: E43 - Unspecified severe protein-calorie malnutrition SNOMED: 024792500, 480513334, 912169533 (4) Hypernatremia ICD Codes: E87.0 - Hyperosmolality and hypernatremia SNOMED: 471030856 (5) Dehydration ICD Codes: E86.0 - Dehydration SNOMED: 94634458 (6) Acute metabolic encephalopathy ICD Codes: G93.41 - Metabolic encephalopathy SNOMED: 96094210, 343145871 (7) UTI (urinary tract infection) ICD Codes: N39.0 - Urinary tract infection, site not specified SNOMED: 98141713 Qualifiers: Qualified Codes: N39.0 - Urinary tract infection, site not specified (8) Sepsis ICD Codes: A41.9 - Sepsis, unspecified organism SNOMED: 30983748 Qualifiers: Qualified Codes: A41.9 - Sepsis, unspecified organism; R65.20 - Severe sepsis without septic shock; G93.40 - Encephalopathy, unspecified Assessment/Plan: s/p GT placement tolerating GTF pending placement Subjective ROS Limited/Unobtainable: No Allergies: Coded Allergies: No Known Allergies (Unverified , 01/29/20) Objective Last 24 Hour Vital Signs Date Time Temp Pulse Resp B/P (MAP) Pulse Ox O2 Delivery O2 Flow Rate FiO2 02/09/20 04:00 96.8 74 16 104/51 (68) 98 02/09/20 00:00 97.9 82 18 114/65 (81) 96 02/08/20 21:00 Room Air 02/08/20 20:00 98.4 104 20 128/66 (86) 98 02/08/20 16:00 98.9 20 143/93 (110) 98 02/08/20 12:25 86 13 121/65 100 Room Air 02/08/20 12:10 78 13 121/64 100 Nasal Cannula 3 02/08/20 12:08 100 18 100 02/08/20 12:07 102 18 100 02/08/20 12:00 97 13 120/63 100 Nasal Cannula 3 02/08/20 11:50 100 15 131/78 100 Nasal Cannula 3 02/08/20 11:45 100 14 137/77 100 Nasal Cannula 3 02/08/20 11:38 97.3 101 15 132/76 100 Nasal Cannula 3 02/08/20 10:46 78 127/64 Intake and Output 02/08/20 02/09/20 19:00 07:00 Intake Total 400 ml 700 ml Output Total 400 ml Balance 0 ml 700 ml Free Water 120 ml IV Total 350 ml Tube Feeding 50 ml 580 ml Output Urine Total 400 ml Height (Feet): 5 Height (Inches): 4.00 Weight (Pounds): 115 General Appearance: lethargic EENT: normal ENT inspection Neck: supple Cardiovascular: normal rate Respiratory/Chest: decreased breath sounds Abdomen: normal bowel sounds, non tender, soft Extremities: non-tender Min Salazar MD Feb 09, 2020 09:01
[2020-02-09] MEDS: Ascorbic Acid 500mg tab ORAL SCH (09:04)
--- NOTE | 2020-02-09 09:06 | Discharge Summary ---
Discharge Summary Hospital Course Date of Admission Jan 29, 2020 at 11:40 Date of Discharge Admitting Diagnosis sepsis HPI Apryl Henson is a 65 year old female who was admitted on Jan 29, 2020 at 11:40 for Sepsis S: pt s/p PEG, tolerating tf PE: General: NAD, awake, alert, A&O x 1 at b/l, aphasic HEENT: NCAT, EOMi, MMM CV: RRR, no murmurs, rubs, or gallops Pulm: CTAB, No wheezes, rhonchi, or rales, no accessory muscle usage GI: Soft, nontender, abd binder in place w/PEG underneath Ext: No lower extremity edema bilaterally Hospital Course 64-year-old female from [facility] w/PMH encephalopathy, UTI, anemia, atherosclerosis of aorta who presents with acute altered mentation, fevers and failure to thrive. Pt found to be in acute toxic metabolic encephalopathy 2/2 severe sepsis 2/2 e. coli UTI. ID consulted and pt treated with abx and improved back to b/l mentation which is AOx1. COVID was tested and was NEGATIVE. On admission pt noted to be hypernatremixc 2/2 dehydration, nephro consulted and pt improved w/IVF. Pt with severe protein calorie malnutrition, dysphagia, and physical deconditioning. transaction advisory services manager unable to contact family. 2 physician consented for PEG tube placement, PEG placed on 02/07 with no complications, pt tolerating TF at this time. Pt to be d/c back to SNF in stable condition. #Acute Toxic Metabolic Encephalopathy 2/2 #Severe Sepsis, POA #E. coli UTI #Hypernatremia, resolved #Dehydration #elevated Hgb/Hct - likely 2/2 hemoconcentration #Sinus Tachycardia - 2/2 sepsis/dehydration - resolved #Transaminitis - 2/2 sepsis/dehydration - resolved #Severe protein calorie malnutrition #Physical Deconditioning #Dysphagia DC planning >30 mins, time spent coordinating care/dispo planning, discussed w/ GI, assistant real estate manager. Time of note doesn't reflect time of encounter. Discharge Discharge Vital Signs Last Vital Signs Date Time Temp Pulse Resp B/P (MAP) Pulse Ox O2 Delivery O2 Flow Rate FiO2 02/09/20 04:00 96.8 74 16 104/51 (68) 98 02/08/20 21:00 Room Air 02/08/20 12:10 3 Discharge Disposition Patient was discharged to Linsey Ramirez M.D. Feb 09, 2020 09:06
--- NOTE | 2020-02-09 09:37 | NUR ---
DISCHARGE PLANNING PATIENT HAS BEEN REFERRED BACK TO [facility] P: [phone] F: [phone] Addendum: 02/09/20 at 1110 by MJ COPELAND LVN LVN FOLLOW UP WITH CHRIS AT [facility]. CONFIRMED PATIENT ACCEPTED TO RETURN WITH ROOM ASSIGNMENT [facility] TRANSPORTATION SCHEDULED WITH [facility] @ EXT 3946 WITH ETA @ 1210 PER ELENA
--- NOTE | 2020-02-09 10:03 | Nephrology Progress Note ---
Assessment/Plan Problem List: (1) Hypernatremia (2) Dehydration (3) UTI (urinary tract infection) (4) Acute metabolic encephalopathy (5) Sepsis Assessment Renal impression: Patient has hypernatremia which is indicative of free water depletion, meanwhile elevated hemoglobin indicative of hemoconcentration due to dehydration Other significant conditions: Sepsis/UTI COVID exposure, pending rule out Toxic metabolic encephalopathy UTI History of hypertension Plan Patient's PEG now Discontinue D5W as serum sodium normalized Stable from renal standpoint of view I agree with discharge planning Per consultants Subjective ROS Limited/Unobtainable: No Constitutional: Reports: malaise Objective Objective Last 24 Hour Vital Signs Date Time Temp Pulse Resp B/P (MAP) Pulse Ox O2 Delivery O2 Flow Rate FiO2 02/09/20 09:05 71 135/71 02/09/20 08:00 98.5 71 20 135/71 (92) 99 02/09/20 04:00 96.8 74 16 104/51 (68) 98 02/09/20 00:00 97.9 82 18 114/65 (81) 96 02/08/20 21:00 Room Air 02/08/20 20:00 98.4 104 20 128/66 (86) 98 02/08/20 16:00 98.9 20 143/93 (110) 98 02/08/20 12:25 86 13 121/65 100 Room Air 02/08/20 12:10 78 13 121/64 100 Nasal Cannula 3 02/08/20 12:08 100 18 100 02/08/20 12:07 102 18 100 02/08/20 12:00 97 13 120/63 100 Nasal Cannula 3 02/08/20 11:50 100 15 131/78 100 Nasal Cannula 3 02/08/20 11:45 100 14 137/77 100 Nasal Cannula 3 02/08/20 11:38 97.3 101 15 132/76 100 Nasal Cannula 3 02/08/20 10:46 78 127/64 Intake and Output 02/08/20 02/09/20 19:00 07:00 Intake Total 400 ml 700 ml Output Total 400 ml Balance 0 ml 700 ml Free Water 120 ml IV Total 350 ml Tube Feeding 50 ml 580 ml Output Urine Total 400 ml Height (Feet): 5 Height (Inches): 4.00 Weight (Pounds): 115 General Appearance: no apparent distress Cardiovascular: normal rate Respiratory/Chest: decreased breath sounds Abdomen: soft, other - Has a GT now Objective No change Shawn Ferguson MD Feb 09, 2020 10:03
--- NOTE | 2020-02-09 10:09 | Surgery Progress Note ---
Surgery Progress Note Subjective Additional Comments s/p g tube tolerating feeds d/c planning improved overall Objective Last 24 Hour Vital Signs Date Time Temp Pulse Resp B/P (MAP) Pulse Ox O2 Delivery O2 Flow Rate FiO2 02/09/20 09:05 71 135/71 02/09/20 08:00 98.5 71 20 135/71 (92) 99 02/09/20 04:00 96.8 74 16 104/51 (68) 98 02/09/20 00:00 97.9 82 18 114/65 (81) 96 02/08/20 21:00 Room Air 02/08/20 20:00 98.4 104 20 128/66 (86) 98 02/08/20 16:00 98.9 20 143/93 (110) 98 02/08/20 12:25 86 13 121/65 100 Room Air 02/08/20 12:10 78 13 121/64 100 Nasal Cannula 3 02/08/20 12:08 100 18 100 02/08/20 12:07 102 18 100 02/08/20 12:00 97 13 120/63 100 Nasal Cannula 3 02/08/20 11:50 100 15 131/78 100 Nasal Cannula 3 02/08/20 11:45 100 14 137/77 100 Nasal Cannula 3 02/08/20 11:38 97.3 101 15 132/76 100 Nasal Cannula 3 02/08/20 10:46 78 127/64 I&O Intake and Output 02/08/20 02/09/20 18:59 06:59 Intake Total 350 ml 750 ml Output Total 400 ml Balance -50 ml 750 ml Free Water 120 ml IV Total 350 ml Tube Feeding 630 ml Output Urine Total 400 ml Dressing: saturated Wound: clean Drains: other Cardiovascular: RSR Respiratory: decreased breath sounds Abdomen: soft, non-tender Extremities: no tenderness, no cyanosis Plan Problems: (1) Decubitus skin ulcer Assessment & Plan: Patient presented on admission with large sacral deep tissue injury unstageable decubitus ulcer. Noted to have 2 areas of epidermal breakdown with underlying tissue was purple and pink somewhat blanchable in certain areas. No signs of active infection noted mild discomfort reported with palpation No underlying fluctuance identified Seemingly newly formed and will need to be monitored closely for further breakdown. Treatment plan Wash sacral decubitus ulcer daily with normal saline. Apply skin protectant and foam dressing. Will need to monitor closely for further breakdown. Unable to stage exact course of disease at this time given the deep tissue injury along with unstageable area of breakdown. Turn every 2 hours Offload pressure and heels with pillow Heel protectors Nutritional optimization patient's BMI and albumin low. Nutritional input appreciated Air mattress We will follow with recommendations thank you (2) Sepsis Assessment & Plan: Gallbladder is unremarkable, without stones, wall thickening , nor pericholecystic fluid. Sonographic Vallecillo's sign is negative. Common bile duct measures 7 mm in diameter. No intrahepatic biliary ductal dilatation. Liver demonstrates normal echogenicity, no focal abnormality. Portal vein and hepatic veins are patent. Pancreas is unremarkable. Spleen is unremarkable. Left kidney measures 11.6 cm in length. Right kidney measures 9.9 cm length. Both kidneys demonstrate normal echogenicity. There is no hydronephrosis. No focal abnormality . Abdominal aorta is partially obscured by bowel gas, visualized portions are non-aneurysmal . Impression: Mildly ectatic common bile duct, may be age-related but downstream obstruction not completely excludable. Correlate with liver function tests, consider MRCP for further evaluation if clinically indicated Negative for gallstones or other significant abnormality. Note nonvisualization of the distal abdominal aorta likely UTI no abd pathology decubitus not infected labs improved overall improved d/c planning (3) UTI (urinary tract infection) Assessment & Plan: on abx as per ID (4) Acute metabolic encephalopathy (5) Dehydration (6) Hypernatremia (7) Severe protein-calorie malnutrition Assessment & Plan: DAILY ESTIMATED NEEDS: Needs based on Wound 60kg abw 25-30 kcals/kg 8160-3651 total kcals 1.25-1.5 g protein/kg 75-90 g total protein 25-30 mL/kg 3422-5483 total fluid mLs NUTRITION DIAGNOSIS: Increased pro needs r/t wound healing as evidenced by sacral unstageable wound. CURRENT DIET:Regular puree PO DIET RECOMMENDATIONS: Maintain Regular liberalized diet w/ poor intake ADDITIONAL RECOMMENDATIONS: 1) Rec [employer] eval for appropriate texture for improved acceptance 2) Add Ensure 1 bottle w/ meals 3) Wound care: Add BEATRIZ BID + Vit C 250mg BID F/up w/ WC eval 4) Maintain calibrated bed scale wts 5) Monitor BG, need for hypoglycemics Pavan Maddox Feb 09, 2020 10:09
[2020-02-09 10:33] LABS: BASOPHILS % (AUTO) 0.8 % (0.0-2.0); EOSINOPHILS % (AUTO) 8.6 % (0.0-3.0); HEMOGLOBIN 12.3 G/DL (12.0-16.0); LYMPHOCYTES % (AUTO) 27.1 % (20.0-45.0); MEAN CORPUSCULAR VOLUME 89 FL (80-99); MONOCYTES % (AUTO) 7.8 % (1.0-10.0); NEUTROPHILS % (AUTO) 55.6 % (45.0-75.0); PLATELET COUNT 280 K/UL (150-450); RED BLOOD COUNT 3.95 M/UL (4.20-5.40); RED CELL DISTRIBUTION WIDTH 11.9 % (11.6-14.8); WHITE BLOOD COUNT 6.5 K/UL (4.8-10.8)
--- NOTE | 2020-02-09 10:36 | NUR ---
NURSE NOTES: NO NEXT OF KIN TO INFORM REGARDING DISCHARGE. WILL CONT TO MONITOR.
--- NOTE | 2020-02-09 11:51 | Pulmonology Progress Note ---
Assessment/Plan Assessment/Plan IMPRESSION: 1. UTI. esbl e coli 2. Severe hypernatremia. improved 3. Rule out COVID-19. Negative x 1 4. jail resident. 5. Hypertension. DISCUSSION: Will continue oxygen p.r.n. Continue broad-spectrum antibiotics I will follow carefully. Subjective Interval Events: none new Constitutional: Reports: no symptoms HEENT: Repors: no symptoms Respiratory: Reports: no symptoms Cardiovascular: Reports: no symptoms Gastrointestinal/Abdominal: Reports: no symptoms Genitourinary: Reports: no symptoms Allergies: Coded Allergies: No Known Allergies (Unverified , 01/29/20) Objective Last 24 Hour Vital Signs Date Time Temp Pulse Resp B/P (MAP) Pulse Ox O2 Delivery O2 Flow Rate FiO2 02/09/20 09:05 71 135/71 02/09/20 08:00 98.5 71 20 135/71 (92) 99 02/09/20 04:00 96.8 74 16 104/51 (68) 98 02/09/20 00:00 97.9 82 18 114/65 (81) 96 02/08/20 21:00 Room Air 02/08/20 20:00 98.4 104 20 128/66 (86) 98 02/08/20 16:00 98.9 20 143/93 (110) 98 02/08/20 12:25 86 13 121/65 100 Room Air 02/08/20 12:10 78 13 121/64 100 Nasal Cannula 3 02/08/20 12:08 100 18 100 02/08/20 12:07 102 18 100 02/08/20 12:00 97 13 120/63 100 Nasal Cannula 3 Intake and Output 02/08/20 02/09/20 19:00 07:00 Intake Total 400 ml 760 ml Output Total 400 ml Balance 0 ml 760 ml Free Water 120 ml IV Total 350 ml Tube Feeding 50 ml 640 ml Output Urine Total 400 ml General Appearance: no acute distress HEENT: normocephalic Respiratory/Chest: chest wall non-tender, lungs clear Cardiovascular: normal peripheral pulses Abdomen: normal bowel sounds Laboratory Tests 02/09/20 10:15: White Blood Count 6.5, Red Blood Count 3.95L, Hemoglobin 12.3, Hematocrit 35.0L , Mean Corpuscular Volume 89, Mean Corpuscular Hemoglobin 31.2H, Mean Corpuscular Hemoglobin Concent 35.3, Red Cell Distribution Width 11.9, Platelet Count 280, Mean Platelet Volume 5.6L, Neutrophils (%) (Auto) 55.6, Lymphocytes ( %) (Auto) 27.1, Monocytes (%) (Auto) 7.8, Eosinophils (%) (Auto) 8.6H, Basophils (%) (Auto) 0.8 Current Medications Medications (Trade) Dose Ordered Sig/Tory Route PRN Reason Start Time Stop Time Status Last Admin Dose Admin Acetaminophen (Tylenol) 650 mg Q4H PRN ORAL For Pain 01/31/20 14:00 02/28/20 13:59 Amlodipine Besylate (Norvasc) 5 mg DAILY ORAL 02/01/20 09:00 02/29/20 08:59 02/09/20 09:05 Ascorbic Acid (Vitamin C) 250 mg TWICE A DAY ORAL 02/02/20 18:00 03/03/20 17:59 02/09/20 09:04 Dextrose (Dextrose 50%) 25 ml Q30M PRN IV Hypoglycemia 01/31/20 13:00 04/28/20 13:59 Dextrose (Dextrose 50%) 50 ml Q30M PRN IV Hypoglycemia 01/31/20 13:00 04/28/20 13:59 Fish Oil (Fish Oil) 1,000 mg BID ORAL 01/31/20 18:00 03/01/20 17:59 02/09/20 09:04 Folic Acid (Folate) 2 mg DAILY ORAL 02/01/20 09:00 03/01/20 08:59 02/09/20 09:04 Heparin Sodium (Porcine) (Heparin 5000 units/ml) 5,000 units EVERY 8 HOURS SUBQ 02/03/20 14:00 03/19/20 13:59 02/09/20 05:39 Lansoprazole (Prevacid) 30 mg DAILY GT 02/09/20 09:00 03/10/20 08:59 02/09/20 09:05 Lorazepam (Ativan 2mg/ml 1ml) 1 mg Q4H PRN IM For Anxiety 02/02/20 20:15 02/09/20 20:14 Olanzapine (ZyPREXA Zydis) 10 mg BEDTIME ORAL 02/02/20 21:00 03/18/20 20:59 02/08/20 21:06 Ondansetron HCl (Zofran) 4 mg Q6H PRN IVP Nausea & Vomiting 01/31/20 13:00 02/28/20 12:59 Potassium Chloride (K-Dur) 40 meq DAILY ORAL 02/01/20 09:00 05/01/20 08:59 02/09/20 09:05 Tip Moreno MD Feb 09, 2020 11:51
[2020-02-09 12:04] VITALS: BP 126/68
--- NOTE | 2020-02-09 12:17 | NUR ---
DISCHARGE SWALLOW/SPEECH THERAPY SUMMARY: PATIENT SEEN FOR DYSPHAGIA, SEE SWALLOW EVALUATION. GOALS FOR INTAKE NOT MET AND PATIENT NEEDED PEG ON 02/08/20. GOALS MET FOR NEW STAFF EDUCATED/TRAINED IN ORAL CARE AND ASPIRATION PRECAUTIONS WHEN PEG FEEDINGS ARE RUNNING. PLAN: D/C FROM SKILLED ST WITH F/UP WITH DYSPHAGIA MANAGEMENT AND TX WITH PATHOLOGY TECHNOLOGIST AT [facility] CONTINUE WITH ORAL CARE AND PEG FEEDINGS (ASP PREC WHEN TUBE FEEDINGS RUNNING). Addendum: 02/09/20 at 1222 by CHRIS BOO PATHOLOGY TECHNOLOGIST CONSIDER ORAL GRAT (WAS ON LIQUIFIED PUREED LIKE NECTAR THICK SOUP CONSISTENCY) AND MODIFIED BARIUM SWALLOW STUDY OP IF APPROPRIATE.
--- NOTE | 2020-02-09 12:20 | NUR ---
NURSE NOTES: [facility] and uploaded and treatment rendered. no personal belongings noted. In stable condition. VSS. tolerating tube feeding well. HOB elevated for aspiration precaution. removed IV access. F/C intact.
--- NOTE | 2020-02-09 22:06 | Neurology Progress Note ---
Interim History Interim History ROS Limited/Unobtainable: No Interim History stable, tolerating feedings Objective Physical Exam Last Vital Signs Date Time Temp Pulse Resp B/P (MAP) Pulse Ox O2 Delivery O2 Flow Rate FiO2 02/09/20 12:04 98.0 87 17 126/68 (87) 99 02/08/20 21:00 Room Air 02/08/20 12:10 3 Laboratory Tests Test 02/09/20 10:15 White Blood Count 6.5 K/UL (4.8-10.8) Red Blood Count 3.95 M/UL (4.20-5.40) L Hemoglobin 12.3 G/DL (12.0-16.0) Hematocrit 35.0 % (37.0-47.0) L Mean Corpuscular Volume 89 FL (80-99) Mean Corpuscular Hemoglobin 31.2 PG (27.0-31.0) H Mean Corpuscular Hemoglobin Concent 35.3 G/DL (32.0-36.0) Red Cell Distribution Width 11.9 % (11.6-14.8) Platelet Count 280 K/UL (150-450) Mean Platelet Volume 5.6 FL (6.5-10.1) L Neutrophils (%) (Auto) 55.6 % (45.0-75.0) Lymphocytes (%) (Auto) 27.1 % (20.0-45.0) Monocytes (%) (Auto) 7.8 % (1.0-10.0) Eosinophils (%) (Auto) 8.6 % (0.0-3.0) H Basophils (%) (Auto) 0.8 % (0.0-2.0) Impression/Recommendations Problems: (1) Decubitus skin ulcer (2) Anemia (3) FTT (failure to thrive) in adult (4) Sepsis (5) UTI (urinary tract infection) (6) Acute metabolic encephalopathy (7) Dehydration (8) Hypernatremia (9) Severe protein-calorie malnutrition Gucci Weber MD Feb 09, 2020 22:06
--- NOTE | 2020-02-09 23:28 | Psych Consult Progress Note ---
Psychiatry Progress Note Psychiatry Progress Note Allergies: Coded Allergies: No Known Allergies (Unverified , 01/29/20) Objective Data Height (Feet): 5 Height (Inches): 4.00 Weight (Pounds): 115 Assessment/Plan Assessment/Plan: zyprexa 10mg po q ro/Lynda Desir MD Feb 09, 2020 23:28
== END 2020-02-09 12:15 | DRG 720 ==
LOC: EDBD 11:10 → EMR 11:24 → 2W 11:40 → EDBEDREQ 12:44 → 4E 01-31 12:40
PROC: 0DH63UZ Insertion of Feeding Device into Stomach, Percutaneous Approach (ICD-10-PCS; principal; 2020-02-08 11:16)
DX: A41.9 Sepsis, unspecified organism (principal); R65.20 Severe sepsis without septic shock; G92 Toxic encephalopathy; E43 Unspecified severe protein-calorie malnutrition; E87.0 Hyperosmolality and hypernatremia; N39.0 Urinary tract infection, site not specified; B96.20 Unspecified Escherichia coli [E. coli] as the cause of diseases classified elsewhere; R00.0 Tachycardia, unspecified; R74.0 Nonspecific elevation of levels of transaminase and lactic acid dehydrogenase [LDH]; R13.10 Dysphagia, unspecified; L89.156 Pressure-induced deep tissue damage of sacral region; R62.7 Adult failure to thrive; F29 Unspecified psychosis not due to a substance or known physiological condition; K25.9 Gastric ulcer, unspecified as acute or chronic, without hemorrhage or perforation; D64.9 Anemia, unspecified; Z68.1 Body mass index [BMI] 19.9 or less, adult
CPT/HCPCS: 36415; 71045; 76700; 80048; 80053; 80061; 80076; 80202; 81003; 82270; 82378; 82550; 82607; 82728; 82746; 82977; 83036; 83540; 83550; 83605; 83690; 83735; 83880; 84100; 84443; 84484; 84550; 85025; 85610; 85730; 86140; 86705; 86709; 86710; 86803; 87040; 87081; 87086; 87181; 87340; 87635; 92610; 93005; 94003; 94150; 96361; 96365; 96367; 99285; J1580; J7030; J8499